=== PATIENT | male | born 1945 | race Caucasian/White ===

== ENCOUNTER 2020-04-25 12:57 | Inpatient (IN) | payer OTHER ==
--- NOTE | 2020-04-25 14:37 | PDOC ---
History of Present Illness - General Chief Complaint: Injury Stated Complaint: KNOT IN CHEST Time Seen by Provider: 04/25/20 13:45 - History of Present Illness Initial Comments: 04/25/20 14:32 74yo M with PMH NIDDM and a cardiac valve repair ~8 months ago who presents because his niece checked in on him for the first time in a few months and he complained of right sided chest and hip pain since a fall two months ago, and because she noticed that he looked much thinner and became short of breath after just 10 steps. Patient reports that he got out of bed a two months ago, became lightheaded, and fell on his right side. Denies LOC. Since then, he has had pain from his hip up to his right chest. He also has pain and a small bump over his sternotomy scar. Also reports diffuse abdominal pain, but no GI or symptoms. Reports 20lb weight loss over several months. PMH/PSH: as above Meds: januvia, metoprolol Allergies Allergy/AdvReac Type Severity Reaction Status Date / Time No Known Allergies Allergy Verified 01/10/15 16:02 Former smoker ROS GENERAL/CONSTITUTIONAL: No fever or chills. weakness. HEAD, EYES, EARS, NOSE AND THROAT: No change in vision. No ear pain or discharge. No sore throat. CARDIOVASCULAR: chest pain and shortness of breath RESPIRATORY: No cough, wheezing, or hemoptysis. GASTROINTESTINAL: No nausea, vomiting, diarrhea or constipation. GENITOURINARY: No dysuria, frequency, or change in urination. MUSCULOSKELETAL: right hip and chest pain, no back or neck pain SKIN: No rash NEUROLOGIC: No headache, vertigo, loss of consciousness, or change in strength/sensation. ENDOCRINE: No increased thirst. weight loss HEMATOLOGIC/LYMPHATIC: No anemia, easy bleeding, or history of blood clots. ALLERGIC/IMMUNOLOGIC: No hives or skin allergy. PE GENERAL: Awake, alert, and fully oriented, thin elderly male, in no acute distress HEAD: No signs of trauma, normocephalic, atraumatic EYES: PERRLA, EOMI, sclera anicteric, conjunctiva clear ENT: Auricles normal inspection, hearing grossly normal, nares patent, oropharynx clear without exudates. Moist mucosa NECK: Normal ROM, supple, no lymphadenopathy, JVD, or masses LUNGS: No distress, speaks full sentences, clear to auscultation bilaterally, shallow respirations HEART: Regular rate and rhythm, normal S1 and S2, no murmurs, rubs or gallops, peripheral pulses normal and equal bilaterally. ABDOMEN: Soft, diffusely tender. No guarding, no rebound. EXTREMITIES : digital clubbing. right > left chest wall tenderness. Tenderness over sternotomy with small area of swelling. Right hip tenderness. NEUROLOGICAL: Cranial nerves II through XII grossly intact. Normal speech, no focal sensorimotor deficits SKIN: Warm, Dry, normal turgor, no rashes or lesions noted Vital Signs Temp Pulse Resp BP Pulse Ox 98.3 F 98 H 16 135/78 97 04/25/20 13:06 04/25/20 13:06 04/25/20 13:06 04/25/20 13:06 04/25/20 13:06 MDM: 74yo M with PMH NIDDM and a cardiac valve repair ~8 months ago who presents with right chest pain, right pelvic pain, dyspnea on exertion, weight loss since a fall two months prior. Vitals reassuring. Exam notable for shallow respirations, tenderness over stenotomy, chest, right hip, and digital clubbing DDx includes rib/sternum/pelvic fracture, ICH, malignancy, CHF -EKG -CBC, CMP, cardiac enzymes, lactate, BMP -CT head and c-spine w/o contrast -CT C/A/P with contrast 04/25/20 14:39 04/25/20 17:32 EKG: NSR, rate 99, normal axis and intervals, LVH, non-specific ST-T changes Labs notable for calcium 14.7, BUN/Cr 1.3/26.9 (previous creatinine 0.9), alk phos 150, CK 536, BNP 436, lactate 4.2. Negative trop x1 Abnormal Lab Results 04/25/20 04/25/20 04/25/20 14:55 14:55 14:55 WBC 10.3 H Monocytes % (Manual) 3 L Myelocytes % (Man) 4 H Nucleated RBC % 1 H BUN 26.1 H Random Glucose 208 H Lactic Acid 4.2 H* Calcium 14.7 H* Total Bilirubin 1.1 H Alkaline Phosphatase 150 H Creatine Kinase 536 H CK-MB (CK-2) 7.4 H B-Natriuretic Peptide 436.3 H Will treat severe hypercalcemia with 1000ml NS bolus, calcitonin, and zolendronate. The fluids will also address the elevated lactate CT head: Impression: No CT evidence of acute intracranial pathology. A small curvilinear hypodense focus is noted within the left basal ganglia possibly representing a chronic infarct versus a nonspecific mildly dilated vessel. Correlation with non emergent contrast enhanced MRI or CT is suggested. Several small bilateral frontal subcortical white matter hypodense foci are seen which may represent chronic infarct versus chronic microvascular ischemic changes. Mild periventricular chronic microvascular ischemic changes are noted. There is mild deformity of the medial wall of the right orbit consistent with a fracture which is probably chronic. Correlate clinically. CT c-spine Addendum: Given findings consistent with multifocal osseous neoplastic disease described on the chest, abdomen and pelvis CT exams the previously noted subtle low-attenuation foci within the cervical spine are probably also on the basis of neoplastic disease. Impression: No fracture is identified. Multilevel degenerative disc changes are noted. Mild multilevel patchy osseous low- attenuation is seen which could be on the basis of osteoporosis. Neoplastic disease is less likely. Comparison with prior CT/MRI exams is suggested if available from a different facility. If prior studies are not available correlation with nonemergent MRI versus 2 month follow-up CT is suggested. CT Chest: Impression: In comparison to a 2013 CT exam interval development of multilevel thoracic vertebral body osteolytic lesions are noted suggestive of metastatic neoplastic disease. Minimal T5 and mild T6 pathologic vertebral body compression fractures are seen. There is mild bony retropulsion at the T6 level. Development of several multilevel bilateral rib osteolytic lesions is also noted. There are possible small subtle osteolytic lesions within the body of the sternum. Status post interval median sternotomy. Interval development of mild subcarinal mediastinal lymphadenopathy is noted. Increased bilateral upper and lower lung field pulmonary fibrosis is noted, left more than right. There is associated mildly increased left lower lobe volume loss. Note is again made of mild fusiform aneurysmal dilatation of the aortic arch and descending aorta CT A/P: Impression: An expansile 5 x 4 cm osteolytic lesion suggestive of metastatic neoplastic disease is noted involving the right iliac bone ventrally with extraosseous soft tissue component. Additional smaller nonexpansile osteolytic lesions are seen involving the lumbosacral spine and bilateral iliac bones. Mild pathologic L1 vertebral body compression fracture with minimal bony retropulsion. There are probable small osteolytic lesions within the femoral heads/necks bilaterally. Right pelvic lymphadenopathy is noted. Moderate prostate enlargement. Mild diffuse urinary bladder wall thickening probably secondary to chronic outlet obstruction. Correlate clinically. Mild fusiform aneurysmal dilatation of the suprarenal aorta (3.4 cm diameter). Admit for likely metastatic cancer, hypercalcemia, JEAN Repeat lactate 7pm Signed out to night team for the admission Past History - Medical History Allergies/Adverse Reactions: Allergies Allergy/AdvReac Type Severity Reaction Status Date / Time No Known Allergies Allergy Verified 01/10/15 16:02 Home Medications: Ambulatory Orders Janumet 50-1,000 mg Tablet 1 tab PO BID 03/14/16 Albuterol Sulfate Inhaler - [Ventolin Hfa Inhaler -] 1 - 2 inh PO PRN PRN 04/25/20 Meloxicam 7.5 mg PO DAILY 04/25/20 Metoprolol Succinate 50 mg PO DAILY 04/25/20 Oxycodone HCl/Acetaminophen [Percocet 10-325 mg Tablet] 1 each PO PRN PRN 04/25/20 Rosuvastatin Calcium [Crestor] 10 mg PO DAILY 04/25/20 Salmeterol/Fluticasone [Advair 100Mcg/50Mcg -] 250 mg PO BID 04/25/20 Tamsulosin HCl [Flomax] 0.4 mg PO DAILY 04/25/20 Tiotropium [place] [Spiriva Respimat] 4 gm IH DAILY 04/25/20 COPD: No Diabetes: Yes HTN: Yes - Surgical History Cardiac Surgery: Yes - Immunization History Immunization Up to Date: Yes - Psycho-Social/Smoking History Smoking History: Never smoked Have you smoked in the past 12 months: No Number of Cigarettes Smoked Daily: 5 Information on smoking cessation initiated: No - Substance Abuse Hx (Audit-C & DAST Scrn) How often the patient has a drink containing alcohol: Never Score: In Men: 4 or > Positive; In Women: 3 or > Positive: 0 Screen Result (Pos requires Nsg. Audit-10AR): Negative In the last yr the pt used illegal drug/Rx for NonMed reason: No Score: Yes response is considered Positive: 0 Screen Result (Positive result requires Nsg. DAST-10): Negative *Physical Exam - Vital Signs Last Vital Signs Temp Pulse Resp BP Pulse Ox 98.3 F 98 H 16 135/78 97 04/25/20 13:06 04/25/20 13:06 04/25/20 13:06 04/25/20 13:06 04/25/20 13:06 ED Treatment Course - LABORATORY CBC & Chemistry Diagram: 04/25/20 14:55 04/25/20 14:55 Discharge - Discharge Information Problems reviewed: Yes Clinical Impression/Diagnosis: JEAN (acute kidney injury), Hypercalcemia Metastatic cancer Qualifiers: Area of secondary neoplastic involvement: bone Qualified Code(s): C79.51 - Secondary malignant neoplasm of bone Condition: Stable - Follow up/Referral - Patient Discharge Instructions - Post Discharge Activity
[2020-04-25] MEDS ORDERED: ACETAMINOPHEN 1000 MG/100 ML VIAL (NON FORMULARY) IVPB ONE (15:06)
[2020-04-25 15:14] LABS: BASO % 0.4 % (0-2.0); EOS % 0.9 % (0-4.5); HEMATOCRIT 43.9 % (35.4-49); HEMOGLOBIN 15.1 GM/dL (11.7-16.9); LYMPH % 17.5 % (8-40); MCH 30.7 pg (25.7-33.7); MCHC 34.4 g/dl (32.0-35.9); MEAN CELL VOLUME 89.4 fl (80-96); MEAN PLT VOLUME 8.4 fl (7.5-11.1); MONO % 5.4 % (3.8-10.2); NEUT % 75.8 % (42.8-82.8); PLATELET COUNT 140 K/MM3 (134-434); RBC 4.91 M/mm3 (4.00-5.60); WHITE BLOOD COUNT 10.3 K/mm3 (4.0-10.0)
--- NOTE | 2020-04-25 15:23 | PDOC ---
Documentation entered by Tristin Nicholas SCRIBE, acting as scribe for Rodo Almendarez MD. Rodo Almendarez MD: This documentation has been prepared by the Cristopher jones Alexis, SCRIBE, under my direction and personally reviewed by me in its entirety. I confirm that the documentation accurately reflects all work, treatment, procedures, and medical decision making performed by me. Attending Attestation - Resident Resident Name: Adán Snell - ED Attending Attestation I have performed the following: I have examined & evaluated the patient, The case was reviewed & discussed with the resident, I agree w/resident's findings & plan, Exceptions are as noted - HPI HPI: 04/25/20 14:58 The patient is a 74 year old male with a significant past medical history of NIDDM and cardiac repair (eight months ago) who presents to the emergency department for evaluation of right sided chest pain and right hip pain that began two months ago s/p fall. The patient reports falling on his right side two months ago due to lightheadedness. After this fall, he has had pain from his right chest to his right hip and abdominal pain. The patients niece at bedside reports the patient has lost significant weight over the past 2 months. Pt denies any acute complaints today but notes that he has been getting progressively more SOB with minimal exertion. Denies leg swelling. Denies LOC. The patient denies back pain, cough, fever, chills, nausea, vomiting, and/or any GI symptoms. Denies any symptoms. Denies any other symptoms. Allergies: NKA Social Hx: The patient reports he smokes cigarettes daily for the past 40 years and social drinking. Surgical Hx: right toe surgery, cardiac valve repair PCP: Dr. Wray - Physicial Exam PE: 04/25/20 13:48 see resident exam - Medical Decision Making 04/25/20 15:24 74 M with fall and weakness. - Labs - CT head/c-spine 04/25/20 18:55 Labs with hyper Ca Will give fluids, calcitonin, bisphosphonates Discharge - Discharge Information Problems reviewed: Yes Clinical Impression/Diagnosis: JEAN (acute kidney injury), Hypercalcemia Metastatic cancer Qualifiers: Area of secondary neoplastic involvement: bone Qualified Code(s): C79.51 - Secondary malignant neoplasm of bone Condition: Stable Disposition: VNS/HOME HEALTH CARE - Follow up/Referral - Patient Discharge Instructions - Post Discharge Activity
[2020-04-25] MEDS ORDERED: ACETAMINOPHEN INJECTION 100 ML IVPB ONE (15:35)
[2020-04-25 15:43] LABS: ALBUMIN 3.8 g/dl (3.4-5.0); ALK PHOS 150 U/L (45-117); ANION GAP 11 MMOL/L (8-16); BILIRUBIN,TOTAL 1.1 mg/dL (0.2-1); BLOOD UREA NITROGEN 26.1 mg/dL (7-18); CHLORIDE 98 mmol/L (98-107); CO2 29 mmol/L (21-32); CREATININE 1.3 mg/dL (0.55-1.3); GLUCOSE,RANDOM 208 mg/dL (74-106); N-TERMINAL BNP 436.3 pg/ml (5-125); POTASSIUM 3.5 mmol/L (3.5-5.1); SGOT/AST 36 U/L (15-37); SGPT/ALT 19 U/L (13-61); SODIUM 139 mmol/L (136-145)
[2020-04-25 15:56] LABS: CALCIUM 14.7 mg/dL (8.5-10.1)
[2020-04-25] MEDS ORDERED: SODIUM CHLORIDE 0.9% 500 ML INFUS.BAG IV ONE (16:10)
[2020-04-25] MEDS ORDERED: ZOLEDRONIC ACID 4 MG in SODIUM CHLORIDE 100 ML IVPB ONE (16:13)
[2020-04-25] MEDS ORDERED: CALCITONIN - SALMON SYNTHETIC 400 UNIT/2 ML VIAL SQ ONE ×3 (16:15→17:00)
--- NOTE | 2020-04-25 19:12 | PDOC ---
*Physical Exam - Vital Signs Last Vital Signs Temp Pulse Resp BP Pulse Ox 98.3 F 98 H 16 135/78 97 04/25/20 13:06 04/25/20 13:06 04/25/20 13:06 04/25/20 13:06 04/25/20 13:06 ED Treatment Course - LABORATORY CBC & Chemistry Diagram: 04/26/20 04:45 04/26/20 04:45 - ADDITIONAL ORDERS Additional order review: Laboratory Results 04/25/20 04/25/20 14:55 14:55 Sodium 139 Potassium 3.5 Chloride 98 Carbon Dioxide 29 Anion Gap 11 BUN 26.1 H Creatinine 1.3 Est GFR (CKD-EPI)AfAm 62.30 Est GFR (CKD-EPI)NonAf 53.75 Random Glucose 208 H Lactic Acid 4.2 H* Calcium 14.7 H* Total Bilirubin 1.1 H AST 36 ALT 19 Alkaline Phosphatase 150 H Creatine Kinase 536 H Creatine Kinase Index 1.3 CK-MB (CK-2) 7.4 H Troponin I < 0.02 B-Natriuretic Peptide 436.3 H Total Protein 8.0 Albumin 3.8 04/25/20 14:55 RBC 4.91 MCV 89.4 MCHC 34.4 RDW 14.0 MPV 8.4 D Neutrophils % 75.8 D Lymphocytes % 17.5 D Monocytes % 5.4 Eosinophils % 0.9 Basophils % 0.4 - Medications Given in the ED: ED Medications Discontinued Medications Generic Name Dose Route Start Last Admin Trade Name Freq PRN Reason Stop Dose Admin Acetaminophen 1,000 mg 04/25/20 15:06 04/25/20 15:37 Ofirmev Injection - IVPB 04/25/20 15:07 1,000 mg ONCE ONE Administration Calcitonin 12 unit 04/25/20 16:30 04/25/20 17:06 Miacalcin Injection - SQ 04/25/20 16:31 Not Given ONCE ONE Calcitonin 200 unit 04/25/20 17:00 04/25/20 17:29 Miacalcin Injection - SQ 04/25/20 17:01 200 unit ONCE ONE Administration Zoledronic Acid 4 mg/ Sodium 105 mls @ 100 mls/hr 04/25/20 16:13 04/25/20 17:28 Chloride IVPB 04/25/20 17:15 100 mls/hr ONCE ONE Administration Sodium Chloride 1,000 ml 04/25/20 16:10 04/25/20 16:20 Normal Saline - IV 04/25/20 16:11 1,000 ml ONCE ONE Administration Medical Decision Making - Medical Decision Making 04/25/20 19:11 sign out was given by Dr. Snell 04/26/20 03:20 Patient was informed of the CT chest scan result. He agreed to stay. He is admitted to the floor. EKG showed vent rate 99, normal sinus rhtym, left ventricular hypertrophy. No previous EKG to compare to. 04/26/20 03:22 Discharge - Discharge Information Problems reviewed: Yes Clinical Impression/Diagnosis: JEAN (acute kidney injury), Hypercalcemia Metastatic cancer Qualifiers: Area of secondary neoplastic involvement: bone Qualified Code(s): C79.51 - Secondary malignant neoplasm of bone Condition: Stable - Admission Yes - Follow up/Referral - Patient Discharge Instructions - Post Discharge Activity
[2020-04-25] MEDS ORDERED: SODIUM CHLORIDE 1,000 ML IV SCH (21:00)
[2020-04-25] MEDS: FUROSEMIDE 40 MG/4 ML INJECTABLE VIAL IVPUSH SCH (21:35)
--- NOTE | 2020-04-25 21:37 | HP ---
CHIEF COMPLAINT: pain all over the body PCP: Dr. Wray HISTORY OF PRESENT ILLNESS: 74 YO man with Mhx of HTN, DM, HLD, ILD, BPH and Aortic Aneurysm s/p repair 1 year ago, presented to ED after his niece found him on floor and unable to get up. Pt reported that he started having pain and weakness all over his body over the last month, associated with decreased appetite and wt loss (reported 20lbs loss). His symptoms became worse over the last 5 days, and last night he was feeling so weak, he sat on floor and couldn't get up till his niece came to check on him and found him on floor. He denies LOC, dizziness, change in urine or bowel habits. No cough or fever reported ER course was notable for: (1) CT head, abdomen and chest (2) Hypercalcemia of 14.7 , recieved calcitonin, zolendronic acid, IVF bolus (3) Recent Travel: denies PAST MEDICAL HISTORY: HTN, DM, HLD, ILD, BPH PAST SURGICAL HISTORY: aortic valve repair (around 1 year ago) Social History: Smokin Pack Year, quit last year Alcohol: 10 Beers/day, quit 15 years ago Drugs: denies Allergies No Known Allergies Allergy (Verified 01/10/15 16:02) HOME MEDICATIONS: Home Medications Medication Instructions Recorded Janumet 50-1,000 mg Tablet 1 tab PO BID 03/14/16 Albuterol Sulfate Inhaler - 1 - 2 inh PO PRN PRN 04/25/20 [Ventolin Hfa Inhaler -] Meloxicam 7.5 mg PO DAILY 04/25/20 Metoprolol Succinate 50 mg PO DAILY 04/25/20 Oxycodone HCl/Acetaminophen 1 each PO PRN PRN 04/25/20 [Percocet 10-325 mg Tablet] Rosuvastatin Calcium [Crestor] 10 mg PO DAILY 04/25/20 Salmeterol/Fluticasone [Advair 250 mg PO BID 04/25/20 100Mcg/50Mcg -] Tamsulosin HCl [Flomax] 0.4 mg PO DAILY 04/25/20 Tiotropium [place] [Spiriva 4 gm IH DAILY 04/25/20 Respimat] REVIEW OF SYSTEMS CONSTITUTIONAL: generalized weakness, loss of appetite, weight change HEENT: System reviewed, all with in normal limits CARDIOVASCULAR: System reviewed, all with in normal limits RESPIRATORY: System reviewed, all with in normal limits GASTROINTESTINAL:abdominal pain GENITOURINARY: System reviewed, all with in normal limits MUSCULOSKELETAL: see HPI SKIN: System reviewed, all with in normal limits HEMATOLOGIC/IMMUNOLOGIC: System reviewed, all with in normal limits ENDOCRINE: System reviewed, all with in normal limits NEUROLOGIC: System reviewed, all with in normal limits PSYCHIATRIC: System reviewed, all with in normal limits PHYSICAL EXAMINATION Vital Signs - 24 hr 04/25/20 13:06 Temperature 98.3 F Pulse Rate 98 H Respiratory 16 Rate Blood Pressure 135/78 O2 Sat by Pulse 97 Oximetry (%) GENERAL: Awake, alert, and fully oriented, in distress due to pain HEAD: Normal with no signs of trauma. EYES: Pupils equal, round and reactive to light, extraocular movements intact, sclera anicteric, conjunctiva clear. No lid lag. EARS, NOSE, THROAT: Ears normal, nares patent, oropharynx clear without exudates. Moist mucous membranes. NECK: Normal range of motion, supple without lymphadenopathy, JVD, or masses. LUNGS: Breath sounds equal, inspiratory crackles- diffuse. HEART: Regular rate and rhythm, normal S1 and S2 with sytolic 4/6 murmur, rub or gallop. ABDOMEN: Soft, mildly tender, not distended, normoactive bowel sounds, no guar ding, no rebound, no masses. No hepatomegaly or splenomegaly. MUSCULOSKELETAL: limited by pain of back, UE & LE: full ROM no joint swelling or tenderness. UPPER EXTREMITIES: 2+ pulses, warm, well-perfused. No cyanosis. No clubbing. No peripheral edema. finger clubbing noted LOWER EXTREMITIES: 2+ pulses, warm, well-perfused. No calf tenderness. No peripheral edema. NEUROLOGICAL: Cranial nerves II-XII intact. Normal speech. Normal gait. PSYCHIATRIC: Cooperative. Good eye contact. Appropriate mood and affect. SKIN: Warm, dry, normal turgor, no rashes or lesions noted, normal capillary refill. Laboratory Results - last 24 hr 04/25/20 04/25/20 04/25/20 14:55 14:55 14:55 WBC 10.3 H RBC 4.91 Hgb 15.1 Hct 43.9 MCV 89.4 MCH 30.7 MCHC 34.4 RDW 14.0 Plt Count 140 D MPV 8.4 D Absolute Neuts (auto) 7.8 Total Counted 100 Neutrophils % 75.8 D Neutrophils % (Manual) 75.0 Lymphocytes % 17.5 D Lymphocytes % (Manual) 18.0 Monocytes % 5.4 Monocytes % (Manual) 3 L Eosinophils % 0.9 Basophils % 0.4 Myelocytes % (Man) 4 H Nucleated RBC % 1 H Sodium 139 Potassium 3.5 Chloride 98 Carbon Dioxide 29 Anion Gap 11 BUN 26.1 H Creatinine 1.3 Est GFR (CKD-EPI)AfAm 62.30 Est GFR (CKD-EPI)NonAf 53.75 Random Glucose 208 H Lactic Acid 4.2 H* Calcium 14.7 H* Total Bilirubin 1.1 H AST 36 ALT 19 Alkaline Phosphatase 150 H Creatine Kinase 536 H Creatine Kinase Index 1.3 CK-MB (CK-2) 7.4 H Troponin I < 0.02 B-Natriuretic Peptide 436.3 H Total Protein 8.0 Albumin 3.8 04/25/20 19:05 WBC RBC Hgb Hct MCV MCH MCHC RDW Plt Count MPV Absolute Neuts (auto) Total Counted Neutrophils % Neutrophils % (Manual) Lymphocytes % Lymphocytes % (Manual) Monocytes % Monocytes % (Manual) Eosinophils % Basophils % Myelocytes % (Man) Nucleated RBC % Sodium Potassium Chloride Carbon Dioxide Anion Gap BUN Creatinine Est GFR (CKD-EPI)AfAm Est GFR (CKD-EPI)NonAf Random Glucose Lactic Acid 1.5 Calcium Total Bilirubin AST ALT Alkaline Phosphatase Creatine Kinase Creatine Kinase Index CK-MB (CK-2) Troponin I B-Natriuretic Peptide Total Protein Albumin ASSESSMENT/PLAN: 74 YO man with Mhx of HTN, DM, HLD, BPH and Aortic Aneurysm s/p repair 1 year ago, presented to ED with back pain, fatigue and weakness # Acute Back pain, weakness and compression fractures 2/2 Hypercalcemia, occult malignancy (primary source unknown), FTT Ca 14.7, recieved calcitonin, Zoledronic acid, IV bolus c/w IV hydration, will repeat CMP, EKG furosemide once. CT revealed: Multilevel vertebral bodies/ribs osteolytic lesions highly suggestive of mets. T56 compression fracture. With mild bony retropulsion at T6. Mediastinal LAP. Pulmonary fibrosis. Aortic aneurysm 3.7cm high protien gap, JEAN. could be MM also can't rule out lung CA, pt has pulmonary fibrosis on imaging, mediastinal LAP, digital clubbing SPEP and urine pep ordered TSH, PTH, Vit D levels ordered EKG reviewed Pain management as indicated no reported saddle anesthesia, retention or constipation, but would watch for symptoms no focal neurological deficit in LE Ortho consult Nephrology consult HemOnc Consult #JEAN IV hydration urine PEP avoid nephrotoxin trend CMP Interstitial Lung Disease/Pulmonary fibrosis HTN DM BPH HLD Aortic Aneurysm DVT prophylaxis Family Medical History Family History: Unremarkable (pt unsure of his family history) Visit type - Medication Review Med list reviewed for High Risk Meds patients 65 and older: Yes - Emergency Visit Emergency Visit: Yes ED Registration Date: 04/25/20 Care time: The patient presented to the Emergency Department on the above date and was hospitalized for further evaluation of their emergent condition. - New Patient This patient is new to me today: Yes Date on this admission: 04/26/20 - Critical Care Critical Care patient: No
[2020-04-25] MEDS ORDERED: ALBUTEROL SO4 HFA INHALER IH PRN (21:40)
[2020-04-25] MEDS: INSULIN SLIDING SCALE (NOVOLOG) 1 VIAL SQ SCH (23:22)
[2020-04-25 23:24] LABS: URINE APPEARANCE CLEAR; URINE BILIRUBIN NEGATIVE (NEGATIVE); URINE COLOR YELLOW; URINE GLUCOSE (UA) NEGATIVE (NEGATIVE); URINE KETONE NEGATIVE (NEGATIVE); URINE LEUK ESTERASE NEGATIVE (NEGATIVE); URINE NITRITE NEGATIVE (NEGATIVE); URINE PROTEIN NEGATIVE (NEGATIVE); URINE UROBILINOGEN 0.2 mg/dL (0.2-1.0)
[2020-04-26] MEDS: FLUTICASONE/SALMETEROL 100 MCG/50 MCG DISKUS IH SCH ×3 (02:43→21:52)
[2020-04-26] MEDS: ROSUVASTATIN CA 10 MG TABLET (FP) PO SCH ×2 (02:43→21:52)
[2020-04-26 04:58] LABS: HEMATOCRIT 39.5 % (35.4-49); HEMOGLOBIN 13.6 GM/dL (11.7-16.9); MCH 30.6 pg (25.7-33.7); MCHC 34.6 g/dl (32.0-35.9); MEAN CELL VOLUME 88.5 fl (80-96); MEAN PLT VOLUME 8.5 fl (7.5-11.1); PLATELET COUNT 122 K/MM3 (134-434); RBC 4.46 M/mm3 (4.00-5.60); RDW 14.3 % (11.9-15.9); WHITE BLOOD COUNT 9.3 K/mm3 (4.0-10.0)
[2020-04-26 05:31] LABS: ALBUMIN 3.2 g/dl (3.4-5.0); BLOOD UREA NITROGEN 20.7 mg/dL (7-18); CALCIUM 10.8 mg/dL (8.5-10.1); MAGNESIUM 1.1 mg/dL (1.8-2.4); PHOSPHOROUS 2.6 mg/dL (2.5-4.9); POTASSIUM 3.3 mmol/L (3.5-5.1); TOT PROT 6.7 g/dl (6.4-8.2)
[2020-04-26 05:50] LABS: INR 1.24 (0.83-1.09); PROTHROMBIN TIME (PATIENT) 14.7 SEC (9.7-13.0)
[2020-04-26] MEDS ORDERED: POTASSIUM CHLORIDE TABS 20 MEQ TABLET.ER (FP) PO ONE (06:10)
[2020-04-26] MEDS: INSULIN SLIDING SCALE (NOVOLOG) 1 VIAL SQ SCH ×4 (06:32→21:50)
[2020-04-26] MEDS: MORPHINE SULFATE 2 MG/ML VIAL IVPUSH PRN ×3 (06:33→21:55)
[2020-04-26 07:07] LABS: BILIRUBIN,TOTAL 0.9 mg/dL (0.2-1)
--- NOTE | 2020-04-26 08:24 | PN ---
Progress Note, Physician History of Present Illness: 4 YO man with Mhx of HTN, DM, HLD, ILD, BPH and Aortic Aneurysm s/p repair 1 year ago, presented to ED after his niece found him on floor and unable to get up. Pt reported that he started having pain and weakness all over his body over the last month, associated with decreased appetite and wt loss (reported 20lbs loss). His symptoms became worse over the last 5 days, and last night he was feeling so weak, he sat on floor and couldn't get up till his niece came to check on him and found him on floor. He denies LOC, dizziness, change in urine or bowel habits. No cough or fever reported - Current Medication List Current Medications: Active Medications Acetaminophen (Tylenol -) 650 mg PO Q4H PRN PRN Reason: PAIN LEVEL 1-5 Albuterol Sulfate (Ventolin Hfa Inhaler -) 2 puff IH Q4H PRN PRN Reason: SHORT OF BREATH/WHEEZING Docusate Sodium (Colace -) 100 mg PO BID PRN PRN Reason: CONSTIPATION Furosemide (Lasix Injection -) 20 mg IVPUSH DAILY [facility] Last Admin: 04/25/20 21:35 Dose: 20 mg Documented by: Heparin Sodium (Porcine) (Heparin -) 5,000 unit SQ TID [facility] Sodium Chloride (Normal Saline -) 1,000 mls @ 100 mls/hr IV ASDIR [facility] Last Admin: 04/25/20 21:34 Dose: 100 mls/hr Documented by: Insulin Aspart (Novolog Vial Sliding Scale -) 1 vial SQ ACHS [facility]; Protocol Last Admin: 04/26/20 06:32 Dose: Not Given Documented by: Morphine Sulfate (Morphine Sulfate) 2 mg IVPUSH Q4H PRN PRN Reason: PAIN LEVEL 7 - 10 Last Admin: 04/26/20 06:33 Dose: 2 mg Documented by: Rosuvastatin Calcium (Crestor -) 10 mg PO HS [facility] Last Admin: 04/26/20 02:43 Dose: Not Given Documented by: Fluticasone/Salmeterol (Advair 100mcg/50mcg -) 1 puff IH BID [facility] Last Admin: 04/26/20 02:43 Dose: Not Given Documented by: Tamsulosin HCl (Flomax -) 0.4 mg PO DAILY@0830 [facility] Tiotropium Comfort (Spiriva Respimat) 2 puff IH DAILY [facility] - Objective Vital Signs: Vital Signs Temperature 97.8 F 04/26/20 05:00 Pulse Rate 88 04/26/20 05:00 Respiratory Rate 18 04/26/20 05:00 Blood Pressure 110/66 04/26/20 05:00 O2 Sat by Pulse Oximetry (%) 93 L 04/26/20 05:00 Cardiovascular: Yes: S1, S2 Respiratory: Yes: Regular, CTA Bilaterally Gastrointestinal: Yes: Normal Bowel Sounds, Soft. No: Tenderness Musculoskeletal: Yes: Back Pain, Muscle Weakness Edema: No Neurological: Yes: Alert, Oriented, Unsteady Gait, Weakness Labs: CBC, BMP 04/26/20 04:45 04/26/20 04:45 INR, PTT INR 1.24 (0.83-1.09) H 04/26/20 04:45 Problem List - Problems (1) Compression fracture Assessment/Plan: # Acute Back pain, weakness and compression fractures 2/2 Hypercalcemia, occult malignancy (primary source unknown), FTT CT revealed: Multilevel vertebral bodies/ribs osteolytic lesions highly suggestive of mets. T56 compression fracture. With mild bony retropulsion at T6. Mediastinal LAP. Pulmonary fibrosis. Aortic aneurysm 3.7cm Code(s): [id number] - (2) Hypercalcemia Assessment/Plan: Ca 14.7, recieved calcitonin, Zoledronic acid, IV bolus c/w IV hydration, will repeat CMP, EKG furosemide once. Code(s): E83.52 - HYPERCALCEMIA (3) Aortic aneurysm Code(s): I71.9 - AORTIC ANEURYSM OF UNSPECIFIED SITE, WITHOUT RUPTURE (4) JEAN (acute kidney injury) Assessment/Plan: SPEP and urine pep ordered TSH, PTH, Vit D levels ordered IV hydration avoid nephrotoxin trend CMP Code(s): N17.9 - ACUTE KIDNEY FAILURE, UNSPECIFIED (5) Metastatic cancer Assessment/Plan: HemOnc Consult Code(s): C79.9 - SECONDARY MALIGNANT NEOPLASM OF UNSPECIFIED SITE Qualifiers: Area of secondary neoplastic involvement: bone Qualified Code(s): C79.51 - Secondary malignant neoplasm of bone
[2020-04-26] MEDS ORDERED: CALCITONIN - SALMON SYNTHETIC 400 UNIT/2 ML VIAL SQ ONE (10:00)
--- NOTE | 2020-04-26 10:00 | CONSULT ---
Consultation: REQUESTING PROVIDER: Dr. Chau Wray CONSULT REQUEST: We have been asked to medically evaluate this patient for JEAN. HISTORY OF PRESENT ILLNESS: Pt. is a 74 y.o. Croatian-speaking M w/ PMHx. of HTN, DM2, HLD, BPH, ILD and hx. of Aortic aneurysm repair 1 year ago, presents from home after being found down on the ground by niece. Pt. states that over the last 2 months he has gotten progressively weaker and has diffuse bone pain in his chest and back that is worse with movement. Pt. states that he also has decreased appettite over that time and even though he would cook for himself he has not been eating or drinking as much. Pt. drinks coffee for energy. Pt. denies any blood or melena in his stool. Pt. denies anch probelms currently with his bowel habits but reports he was on Linzess in the past for constipation. Pt. states he had a colonoscopy within the last year but was not told of his results. Pt. endorses at least 20 lbs. unintentional weight loss over the last 2 months.Pt. states he sees many doctors and takes many medications but does not remember them and directed me to speak with his niece when she comes in later today. Pt.denies any headache, changes in vision, nausea, vomiting, diarrhea, constipation, numbness, shortness of breath that is worse than usual or tingling in his extremities that is worse than usual. Pt. denies any family history of malignancy or renal disease. Pt. denies takign any medication other than what was prescribed for pain. Pt. notably is on Meloxicam. On hospital admission Pt. noted to have JEAN, hypercalcemia to 14.7 and multiple osteolytic lesions to spine, and pelvis. Pt. received calcitonin, Zolendronic Acid and IVF. Cortex #[id number] REVIEW OF SYSTEMS: As above PHYSICAL EXAMINATION Vital Signs - 24 hr 04/25/20 04/25/20 04/26/20 13:06 23:09 02:00 Temperature 98.3 F 98.2 F 98.1 F Pulse Rate 98 H 89 Pulse Rate [ 101 H Right Radial] Respiratory 16 16 Rate Blood Pressure 135/78 129/69 Blood Pressure 133/70 [Left Arm] O2 Sat by Pulse 97 93 L 95 Oximetry (%) 04/26/20 05:00 Temperature 97.8 F Pulse Rate 88 Pulse Rate [ Right Radial] Respiratory 18 Rate Blood Pressure 110/66 Blood Pressure [Left Arm] O2 Sat by Pulse 93 L Oximetry (%) GENERAL: Awake, alert, and fully oriented, in acute distress 2/2 to pain with movement. HEAD: Normal with no signs of gross trauma. Temporal wasting EYES: Sclera anicteric, conjunctiva clear. EARS, NOSE, THROAT: Dry mucous membranes. NECK: Normal range of motion, supple without lymphadenopathy, JVD, or masses. LUNGS: Diffuse crackles anteriorly and in axilla. Pt. too weak and has toom uch pain to sit up or roll to side. No accessory muscle use. HEART: Regular rate and rhythm, normal S1 and S2 without murmur. Chest wall tender to palpation. ABDOMEN: Soft, nontender, not distended, normoactive bowel sounds, no guarding, no rebound, no masses. UPPER EXTREMITIES: 2+ radial pulse, warm, well-perfused. No cyanosis. Digital clubbing. No peripheral edema. LOWER EXTREMITIES: 2+ dorsal pedal pulses, warm, well-perfused. No calf tenderness. No peripheral edema. NEUROLOGICAL: Moves all extremities, No focal deficits aprpeciated. Gait not assessed PSYCHIATRIC: Cooperative. Good eye contact. Appropriate mood and affect. SKIN: Warm, dry Laboratory Results - last 24 hr 04/25/20 04/25/20 04/25/20 14:55 14:55 14:55 WBC 10.3 H RBC 4.91 Hgb 15.1 Hct 43.9 MCV 89.4 MCH 30.7 MCHC 34.4 RDW 14.0 Plt Count 140 D MPV 8.4 D Absolute Neuts (auto) 7.8 Total Counted 100 Neutrophils % 75.8 D Neutrophils % (Manual) 75.0 Lymphocytes % 17.5 D Lymphocytes % (Manual) 18.0 Monocytes % 5.4 Monocytes % (Manual) 3 L Eosinophils % 0.9 Basophils % 0.4 Myelocytes % (Man) 4 H Nucleated RBC % 1 H PT with INR INR Sodium 139 Potassium 3.5 Chloride 98 Carbon Dioxide 29 Anion Gap 11 BUN 26.1 H Creatinine 1.3 Est GFR (CKD-EPI)AfAm 62.30 Est GFR (CKD-EPI)NonAf 53.75 POC Glucometer Random Glucose 208 H Lactic Acid 4.2 H* Calcium 14.7 H* Phosphorus Magnesium Total Bilirubin 1.1 H AST 36 ALT 19 Alkaline Phosphatase 150 H Creatine Kinase 536 H Creatine Kinase Index 1.3 CK-MB (CK-2) 7.4 H Troponin I < 0.02 B-Natriuretic Peptide 436.3 H Total Protein 8.0 Albumin 3.8 TSH Urine Color Urine Appearance Urine pH Ur Specific [place] Urine Protein Urine Glucose (UA) Urine Ketones Urine Blood Urine Nitrite Urine Bilirubin Urine Urobilinogen Ur Leukocyte Esterase 04/25/20 04/25/20 04/25/20 19:05 23:02 23:15 WBC RBC Hgb Hct MCV MCH MCHC RDW Plt Count MPV Absolute Neuts (auto) Total Counted Neutrophils % Neutrophils % (Manual) Lymphocytes % Lymphocytes % (Manual) Monocytes % Monocytes % (Manual) Eosinophils % Basophils % Myelocytes % (Man) Nucleated RBC % PT with INR INR Sodium Potassium Chloride Carbon Dioxide Anion Gap BUN Creatinine Est GFR (CKD-EPI)AfAm Est GFR (CKD-EPI)NonAf POC Glucometer 183 Random Glucose Lactic Acid 1.5 Calcium Phosphorus Magnesium Total Bilirubin AST ALT Alkaline Phosphatase Creatine Kinase Creatine Kinase Index CK-MB (CK-2) Troponin I B-Natriuretic Peptide Total Protein Albumin TSH Urine Color Yellow Urine Appearance Clear Urine pH 6.0 Ur Specific [place] 1.012 Urine Protein Negative Urine Glucose (UA) Negative Urine Ketones Negative Urine Blood Negative Urine Nitrite Negative Urine Bilirubin Negative Urine Urobilinogen 0.2 Ur Leukocyte Esterase Negative 04/26/20 04/26/20 04/26/20 04:45 04:45 04:45 WBC 9.3 RBC 4.46 Hgb 13.6 Hct 39.5 MCV 88.5 MCH 30.6 MCHC 34.6 RDW 14.3 Plt Count 122 L MPV 8.5 Absolute Neuts (auto) Total Counted Neutrophils % Neutrophils % (Manual) Lymphocytes % Lymphocytes % (Manual) Monocytes % Monocytes % (Manual) Eosinophils % Basophils % Myelocytes % (Man) Nucleated RBC % PT with INR 14.70 H INR 1.24 H Sodium 139 Potassium 3.3 L Chloride 104 Carbon Dioxide 28 Anion Gap 7 L BUN 20.7 H Creatinine 1.0 Est GFR (CKD-EPI)AfAm 85.55 Est GFR (CKD-EPI)NonAf 73.82 POC Glucometer Random Glucose 128 H Lactic Acid Calcium 10.8 H Phosphorus 2.6 Magnesium 1.1 L Total Bilirubin 0.9 AST 33 ALT 17 Alkaline Phosphatase 129 H Creatine Kinase Creatine Kinase Index CK-MB (CK-2) Troponin I B-Natriuretic Peptide Total Protein 6.7 Albumin 3.2 L TSH 1.98 Urine Color Urine Appearance Urine pH Ur Specific [place] Urine Protein Urine Glucose (UA) Urine Ketones Urine Blood Urine Nitrite Urine Bilirubin Urine Urobilinogen Ur Leukocyte Esterase 04/26/20 06:21 WBC RBC Hgb Hct MCV MCH MCHC RDW Plt Count MPV Absolute Neuts (auto) Total Counted Neutrophils % Neutrophils % (Manual) Lymphocytes % Lymphocytes % (Manual) Monocytes % Monocytes % (Manual) Eosinophils % Basophils % Myelocytes % (Man) Nucleated RBC % PT with INR INR Sodium Potassium Chloride Carbon Dioxide Anion Gap BUN Creatinine Est GFR (CKD-EPI)AfAm Est GFR (CKD-EPI)NonAf POC Glucometer 125 Random Glucose Lactic Acid Calcium Phosphorus Magnesium Total Bilirubin AST ALT Alkaline Phosphatase Creatine Kinase Creatine Kinase Index CK-MB (CK-2) Troponin I B-Natriuretic Peptide Total Protein Albumin TSH Urine Color Urine Appearance Urine pH Ur Specific [place] Urine Protein Urine Glucose (UA) Urine Ketones Urine Blood Urine Nitrite Urine Bilirubin Urine Urobilinogen Ur Leukocyte Esterase Active Medications Generic Name Dose Route Start Last Admin Trade Name Freq PRN Reason Stop Dose Admin Acetaminophen 650 mg 04/25/20 20:56 Tylenol - PO Q4H PRN PAIN LEVEL 1-5 Albuterol Sulfate 2 puff 04/25/20 21:40 Ventolin Hfa Inhaler - IH Q4H PRN SHORT OF BREATH/WHEEZING Docusate Sodium 100 mg 04/25/20 21:01 Colace - PO BID PRN CONSTIPATION Furosemide 20 mg 04/25/20 21:15 04/25/20 21:35 Lasix Injection - IVPUSH 20 mg DAILY [facility] Administration Heparin Sodium (Porcine) 5,000 unit 04/26/20 22:00 Heparin - SQ TID [facility] Potassium Chloride/Sodium Chloride 20 meq in 1,000 mls @ 83 mls/hr 04/26/20 08:30 1/2ns+20meq Kcl IV ASDIR [facility] Insulin Aspart 1 vial 04/25/20 22:00 04/26/20 06:32 Novolog Vial Sliding Scale - SQ Not Given ACHS [facility] Protocol Morphine Sulfate 2 mg 04/25/20 20:56 04/26/20 06:33 Morphine Sulfate IVPUSH 2 mg Q4H PRN Administration PAIN LEVEL 7 - 10 Rosuvastatin Calcium 10 mg 04/25/20 22:00 04/26/20 02:43 Crestor - PO Not Given HS [facility] Fluticasone/Salmeterol 1 puff 04/25/20 22:00 04/26/20 02:43 Advair 100mcg/50mcg - IH Not Given BID [facility] Tamsulosin HCl 0.4 mg 04/26/20 08:30 Flomax - PO DAILY@0830 [facility] Tiotropium Daisy 2 puff 04/26/20 10:00 Spiriva Respimat IH DAILY [facility] ASSESSMENT/PLAN: Pt. is a 74 y.o. Croatian-speaking M w/ PMHx. of HTN, DM2, HLD, BPH, ILD and Hx. of Aortic aneurysm repair 1 year ago, presents from home after being found down on the ground by niece. Pt. states that over the last 2 months he has gotten progressively weaker and has diffuse bone pain in his chest and back that is worse with movement. #JEAN #HTN #HLD #BPH #ILD #DM2 #Hx. of Aortic Aneurysm #Osteolytic lesions in thoracic spine and in pelvis #Suspected Malignancy #Failure to thrive #Lactic Acidosis #Elevated CK s/p Calcitonin and Zometa c/w IVF enourage PO intake Heme/Onc consult appreciated f/u outpatient records for PCP especially colonoscopy report Dietary consult for malnutrition suggested JEAN and elevated lactate is resolving with IVF f/u LUISANA Mspike, SPEP, UPEP to r/o MM although Pt. dies not have anemia has hypercalcemia, had renal involvement with JEAN and has lytic lesions f/u PTH and Vit. D Dispo: We will continue to follow the patient. Thank you for this consultative opportunity. Visit type - Medication Review Med list reviewed for High Risk Meds patients 65 and older: Yes - Emergency Visit Emergency Visit: Yes ED Registration Date: 04/25/20 Care time: The patient presented to the Emergency Department on the above date and was hospitalized for further evaluation of their emergent condition. - New Patient This patient is new to me today: Yes Date on this admission: 04/26/20 - Critical Care Critical Care patient: No ATTENDING PHYSICIAN STATEMENT I saw and evaluated the patient. I reviewed the resident's note and discussed the case with the resident. I agree with the resident's findings and plan as documented. SUBJECTIVE: OBJECTIVE: ASSESSMENT AND PLAN:
[2020-04-26] MEDS: FUROSEMIDE 40 MG/4 ML INJECTABLE VIAL IVPUSH SCH (10:08)
[2020-04-26] MEDS: TAMSULOSIN HCL 0.4 MG CAP PO SCH (10:08)
[2020-04-26] MEDS: DOCUSATE SODIUM 100 MG CAPSULE (FP) PO PRN (10:10)
[2020-04-26] MEDS ORDERED: PT OWN MED DRAWER 7, Y5N ONE (10:21)
[2020-04-26] MEDS: SODIUM CHLORIDE 0.45%/POT 20 MEQ/1,000 ML INFUS.BAG IV SCH ×2 (10:22→21:51)
[2020-04-26] MEDS: TIOTROPIUM BROMIDE 2.5 MCG (SPIRIVA) RESPIMAT INHALER IH SCH (10:23)
--- NOTE | 2020-04-26 11:21 | CONSULT ---
Consultation: REQUESTING PROVIDER: Dr. Birch CONSULT REQUEST: We have been asked to medically evaluate this patient for hypercalcemia, osteolytic lesions. HISTORY OF PRESENT ILLNESS: 74 y/o M PMHx HTN, DM, HLD, ILD, BPH, AAA (s/p repair) presents with weakness after being found on the ground. patient has been complaining of weakness for the past few month accompanied by decreased appetite, unintentional 20lb weight loss, fatigue with minimal activity, and diffuse pain. His weakness has progressed to the point where he was unable to get up from the ground until his niece assisted him prompting his visit to [facility]. Initial Labwork reveals Calcium 14.7, JEAN, Alk Phos 150, Lactate 4.2 for which the patient was given IVF, Calcitonin, Bisphosphonates. Initial imaging was suggestive of mestastic neoplasm (Multiple osteolytic lesions, T5/T6/L1 Compresion fx, Pelvic Lymphadenopathy). Patient was admitted and Oncology was consulted for occult malignancy. During my interview, patient was able to tolerate PO intake but complained of diffuse pain. Patient says his most recent colonoscopy was one year ago but he is unsure of the results. Denies any fevers, chills, chest pain, SOB, nausea, vomiting diarrhea, constipation Denies any chnage in stool color, melena, hemoptysis, hematochezia, hematuria. Denies any FHx of malignancy. PMHx: As per HPI PSHx: Aortic Valve repair Social: Quit tobacco one year ago (25 pack year hx), Quit EtOH 15 years ago, Denies drug use FHx: Mother with Cardiac Disease, Father with CKD REVIEW OF SYSTEMS: As per HPI PHYSICAL EXAMINATION Vital Signs Temperature 98.1 F 04/26/20 10:34 Pulse Rate 93 H 04/26/20 10:34 Respiratory Rate 04/26/20 10:34 Blood Pressure 112/70 04/26/20 10:34 O2 Sat by Pulse Oximetry (%) 92 L 04/26/20 10:34 GENERAL: A&Ox3, NAD HEAD: NCAT EYES: PERRL, EOMI ENT: Moist mucous membranes NECK: Supple, No JVD LUNGS: Diminished breath sounds at the bases, No Wheezes, Taking shallow breaths due to pain, HEART: Regular rate and rhythm, normal S1 and S2 without murmur ABDOMEN: Soft, nontender, not distended, + bowel sounds, no guarding, no rebound MUSCULOSKELETAL: tender to light palpation throughout EXTREMITIES: Digital clubbing in UE. No peripheral edema. NEUROLOGICAL: Cranial nerves II-XII intact. 4/5 muscle strength throughout, Otherwise no FND SKIN: Warm, dry Laboratory Last Values WBC 9.3 K/mm3 (4.0-10.0) 04/26/20 04:45 RBC 4.46 M/mm3 (4.00-5.60) 04/26/20 04:45 Hgb 13.6 GM/dL (11.7-16.9) 04/26/20 04:45 Hct 39.5 % (35.4-49) 04/26/20 04:45 MCV 88.5 fl (80-96) 04/26/20 04:45 MCH 30.6 pg (25.7-33.7) 04/26/20 04:45 MCHC 34.6 g/dl (32.0-35.9) 04/26/20 04:45 RDW 14.3 % (11.9-15.9) 04/26/20 04:45 Plt Count 122 K/MM3 (134-434) L 04/26/20 04:45 MPV 8.5 fl (7.5-11.1) 04/26/20 04:45 Absolute Neuts (auto) 7.8 K/mm3 (1.5-8.0) 04/25/20 14:55 Total Counted 100 04/25/20 14:55 Neutrophils % 75.8 % (42.8-82.8) D 04/25/20 14:55 Neutrophils % (Manual) 75.0 % (42.8-82.8) 04/25/20 14:55 Lymphocytes % 17.5 % (8-40) D 04/25/20 14:55 Lymphocytes % (Manual) 18.0 % (8-40) 04/25/20 14:55 Monocytes % 5.4 % (3.8-10.2) 04/25/20 14:55 Monocytes % (Manual) 3 % (3.8-10.2) L 04/25/20 14:55 Eosinophils % 0.9 % (0-4.5) 04/25/20 14:55 Basophils % 0.4 % (0-2.0) 04/25/20 14:55 Myelocytes % (Man) 4 % (0-2) H 04/25/20 14:55 Nucleated RBC % 1 % (0-0) H 04/25/20 14:55 PT with INR 14.70 SEC (9.7-13.0) H 04/26/20 04:45 INR 1.24 (0.83-1.09) H 04/26/20 04:45 Sodium 139 mmol/L (136-145) 04/26/20 04:45 Potassium 3.3 mmol/L (3.5-5.1) L 04/26/20 04:45 Chloride 104 mmol/L (98-107) 04/26/20 04:45 Carbon Dioxide 28 mmol/L (21-32) 04/26/20 04:45 Anion Gap 7 MMOL/L (8-16) L 04/26/20 04:45 BUN 20.7 mg/dL (7-18) H 04/26/20 04:45 Creatinine 1.0 mg/dL (0.55-1.3) 04/26/20 04:45 Est GFR (CKD-EPI)AfAm 85.55 04/26/20 04:45 Est GFR (CKD-EPI)NonAf 73.82 04/26/20 04:45 POC Glucometer 125 UNITS (80-120) 04/26/20 06:21 Random Glucose 128 mg/dL (74-106) H 04/26/20 04:45 Lactic Acid 1.5 mmol/L (0.4-2.0) 04/25/20 19:05 Calcium 10.8 mg/dL (8.5-10.1) H 04/26/20 04:45 Phosphorus 2.6 mg/dL (2.5-4.9) 04/26/20 04:45 Magnesium 1.1 mg/dL (1.8-2.4) L 04/26/20 04:45 Total Bilirubin 0.9 mg/dL (0.2-1) 04/26/20 04:45 AST 33 U/L (15-37) 04/26/20 04:45 ALT 17 U/L (13-61) 04/26/20 04:45 Alkaline Phosphatase 129 U/L (45-117) H 04/26/20 04:45 Creatine Kinase 536 U/L (26-308) H 04/25/20 14:55 Creatine Kinase Index 1.3 % (0.0-5.0) 04/25/20 14:55 CK-MB (CK-2) 7.4 ng/mL (0.5-3.6) H 04/25/20 14:55 Troponin I < 0.02 ng/ml (0.00-0.05) 04/25/20 14:55 B-Natriuretic Peptide 436.3 pg/ml (5-125) H 04/25/20 14:55 Total Protein 6.7 g/dl (6.4-8.2) 04/26/20 04:45 Albumin 3.2 g/dl (3.4-5.0) L 04/26/20 04:45 25-OH Vitamin D Total 17.2 ng/mL (30-100) L 04/26/20 07:42 TSH 1.98 uIU/ml (0.358-3.74) 04/26/20 04:45 Urine Color Yellow 04/25/20 23:15 Urine Appearance Clear 04/25/20 23:15 Urine pH 6.0 (5.0-8.0) 04/25/20 23:15 Ur Specific [place] 1.012 (1.010-1.035) 04/25/20 23:15 Urine Protein Negative (NEGATIVE) 04/25/20 23:15 Urine Glucose (UA) Negative (NEGATIVE) 04/25/20 23:15 Urine Ketones Negative (NEGATIVE) 04/25/20 23:15 Urine Blood Negative (NEGATIVE) 04/25/20 23:15 Urine Nitrite Negative (NEGATIVE) 04/25/20 23:15 Urine Bilirubin Negative (NEGATIVE) 04/25/20 23:15 Urine Urobilinogen 0.2 mg/dL (0.2-1.0) 04/25/20 23:15 Ur Leukocyte Esterase Negative (NEGATIVE) 04/25/20 23:15 Active Medications Acetaminophen (Tylenol -) 650 mg PO Q4H PRN PRN Reason: PAIN LEVEL 1-5 Albuterol Sulfate (Ventolin Hfa Inhaler -) 2 puff IH Q4H PRN PRN Reason: SHORT OF BREATH/WHEEZING Docusate Sodium (Colace -) 100 mg PO BID PRN PRN Reason: CONSTIPATION Last Admin: 04/26/20 10:10 Dose: 100 mg Documented by: Furosemide (Lasix Injection -) 20 mg IVPUSH DAILY [facility] Last Admin: 04/26/20 10:08 Dose: 20 mg Documented by: Heparin Sodium (Porcine) (Heparin -) 5,000 unit SQ TID [facility] Potassium Chloride/Sodium Chloride (1/2ns+20meq Kcl) 20 meq in 1,000 mls @ 83 mls/hr IV ASDIR [facility] Last Admin: 04/26/20 10:22 Dose: 83 mls/hr Documented by: Insulin Aspart (Novolog Vial Sliding Scale -) 1 vial SQ ACHS [facility]; Protocol Last Admin: 04/26/20 06:32 Dose: Not Given Documented by: Morphine Sulfate (Morphine Sulfate) 2 mg IVPUSH Q4H PRN PRN Reason: PAIN LEVEL 7 - 10 Last Admin: 04/26/20 10:11 Dose: 2 mg Documented by: Rosuvastatin Calcium (Crestor -) 10 mg PO HS [facility] Last Admin: 04/26/20 02:43 Dose: Not Given Documented by: Fluticasone/Salmeterol (Advair 100mcg/50mcg -) 1 puff IH BID [facility] Last Admin: 04/26/20 10:10 Dose: 1 puff Documented by: Tamsulosin HCl (Flomax -) 0.4 mg PO DAILY@0830 [facility] Last Admin: 04/26/20 10:08 Dose: 0.4 mg Documented by: Tiotropium Cal[place] (Spiriva Respimat) 2 puff IH DAILY [facility] Last Admin: 04/26/20 10:23 Dose: Not Given Documented by: ASSESSMENT/PLAN: 74 y/o M PMHx HTN, DM, HLD, ILD, BPH, AAA (s/p repair) presents with weakness. Recently experienced decreased appetite, unintentional 20lb weight loss and diffuse pain. Initial Labwork reveals Calcium 14.7 (treated), JEAN. Initial imaging was suggestive of mestastic neoplasm (Multiple osteolytic lesions, T5/T6/L1 Compresion fx, Pelvic Lymphadenopathy). Patient was admitted and Oncology was consulted for occult malignancy. #Osteolytic lesions + LAD -Concering for Multiple myeloma vs other occult malignancy -Analgesia as pain not well controlled -Follow SPEP, UPEP, LUISANA, Immunoglobulins, Light chains ([place], Lambda), PSA, CEA, CA 19-9, CA 125 -Nephrology consult appreciated -May need T-Spine lesion biopsy vs bone marrow biopsy pending above -Will need to obtain outpatient cancer screening record from PCP Dispo: We will continue to follow the patient. Thank you for this consultative opportunity. Visit type - Medication Review Med list reviewed for High Risk Meds patients 65 and older: Yes - Emergency Visit Emergency Visit: Yes ED Registration Date: 04/25/20 Care time: The patient presented to the Emergency Department on the above date and was hospitalized for further evaluation of their emergent condition. - New Patient This patient is new to me today: Yes Date on this admission: 04/26/20 - Critical Care Critical Care patient: No ATTENDING PHYSICIAN STATEMENT I saw and evaluated the patient. I reviewed the resident's note and discussed the case with the resident. I agree with the resident's findings and plan as documented. SUBJECTIVE: OBJECTIVE: ASSESSMENT AND PLAN:
[2020-04-26] MEDS: ACETAMINOPHEN 325 MG TABLET (FP) PO PRN (13:44)
--- NOTE | 2020-04-26 14:04 | EKG ---
Test Reason : Blood Pressure : / mmHG Vent. Rate : 099 BPM Atrial Rate : 099 BPM P-R Int : 142 ms QRS Dur : 098 ms QT Int : 338 ms P-R-T Axes : 066 081 000 degrees QTc Int : 433 ms NORMAL SINUS RHYTHM POSSIBLE LEFT ATRIAL ENLARGEMENT NONSPECIFIC T WAVE ABNORMALITY ABNORMAL ECG WHEN COMPARED WITH ECG OF 25-APR-2020 13:07, NO SIGNIFICANT CHANGE WAS FOUND Confirmed by RIO REESE MD ([id number]) on 04/26/2020 2:04:01 PM Referred By: Confirmed By:RIO REESE MD
--- NOTE | 2020-04-26 14:06 | EKG ---
Test Reason : Blood Pressure : / mmHG Vent. Rate : 099 BPM Atrial Rate : 099 BPM P-R Int : 126 ms QRS Dur : 096 ms QT Int : 304 ms P-R-T Axes : 070 076 001 degrees QTc Int : 390 ms POOR DATA QUALITY, INTERPRETATION MAY BE ADVERSELY AFFECTED NORMAL SINUS RHYTHM POSSIBLE LEFT ATRIAL ENLARGEMENT LEFT VENTRICULAR HYPERTROPHY NONSPECIFIC ST AND T WAVE ABNORMALITY ABNORMAL ECG NO PREVIOUS ECGS AVAILABLE Confirmed by HUGH WHITLOCK, RIO ([id number]) on 04/26/2020 2:05:25 PM Referred By: Confirmed By:RIO REESE MD
[2020-04-26] MEDS ORDERED: MAGNESIUM SULF 50% (8.12 MEQ/2 ML-1 GM VIAL) IVPB ONE (14:48)
[2020-04-26] MEDS ORDERED: POTASSIUM CHLORIDE ORAL LIQUID 20 MEQ/15 ML PO ONE (14:48)
--- NOTE | 2020-04-26 14:48 | PN ---
Teaching Attending Note Name of Resident: Chas Topete (Nephrology) ATTENDING PHYSICIAN STATEMENT I saw and evaluated the patient. I reviewed the resident's note and discussed the case with the resident. I agree with the resident's findings and plan as documented. Renal Pt is a 74 year old male with pmhx of htn, dm, hld, ild, and bph who presents to the ER with weakness and lethargy. He has had about a 20 pound weight loss. He was found to be hypercalcemic. Pmhx htn dm ild bph aortic aneurysm nkda social hx denies ros lethargy Laboratory Tests 04/25/20 04/25/20 04/25/20 14:55 14:55 16:30 Sodium 139 Potassium 3.5 Creatinine 1.3 Lactic Acid 4.2 H* Calcium 14.7 H* Magnesium Urine Protein Urine Blood LUISANA M-Kendrick COVID-19 (ANASTACIA) Pending 04/25/20 04/25/20 04/26/20 19:05 23:15 04:45 Sodium Potassium 3.3 L Creatinine Lactic Acid 1.5 Calcium 10.8 H Magnesium 1.1 L Urine Protein Negative Urine Blood Negative LUISANA M-Kendrick COVID-19 (ANASTACIA) 04/26/20 06:20 Sodium Potassium Creatinine Lactic Acid Calcium Magnesium Urine Protein Urine Blood LUISANA M-Kendrick Pending COVID-19 (ANASTACIA) Last Vital Signs Temp Pulse Resp BP Pulse Ox 98.1 F 93 H 20 112/70 98 04/26/20 10:34 04/26/20 10:34 04/26/20 10:34 04/26/20 10:34 04/26/20 12:26 Current Medications Generic Name Dose Route Start Last Admin Trade Name Freq PRN Reason Stop Dose Admin Acetaminophen 650 mg 04/25/20 20:56 04/26/20 13:44 Tylenol - PO 650 mg Q4H PRN Administration PAIN LEVEL 1-5 Albuterol Sulfate 2 puff 04/25/20 21:40 Ventolin Hfa Inhaler - IH Q4H PRN SHORT OF BREATH/WHEEZING Docusate Sodium 100 mg 04/25/20 21:01 04/26/20 10:10 Colace - PO 100 mg BID PRN Administration CONSTIPATION Furosemide 20 mg 04/25/20 21:15 04/26/20 10:08 Lasix Injection - IVPUSH 20 mg DAILY [facility] Administration Heparin Sodium (Porcine) 5,000 unit 04/26/20 22:00 Heparin - SQ TID [facility] Potassium Chloride/Sodium Chloride 20 meq in 1,000 mls @ 83 mls/hr 04/26/20 08:30 04/26/20 10:22 1/2ns+20meq Kcl IV 83 mls/hr ASDIR [facility] Administration Insulin Aspart 1 vial 04/25/20 22:00 04/26/20 11:46 Novolog Vial Sliding Scale - SQ Not Given ACHS [facility] Protocol Morphine Sulfate 2 mg 04/25/20 20:56 04/26/20 10:11 Morphine Sulfate IVPUSH 2 mg Q4H PRN Administration PAIN LEVEL 7 - 10 Rosuvastatin Calcium 10 mg 04/25/20 22:00 04/26/20 02:43 Crestor - PO Not Given HS [facility] Fluticasone/Salmeterol 1 puff 04/25/20 22:00 04/26/20 10:10 Advair 100mcg/50mcg - IH 1 puff BID [facility] Administration Tamsulosin HCl 0.4 mg 04/26/20 08:30 04/26/20 10:08 Flomax - PO 0.4 mg DAILY@0830 [facility] Administration Tiotropium [place] 2 puff 04/26/20 10:00 04/26/20 10:23 Spiriva Respimat IH Not Given DAILY [facility] cardo s1s2 pulm clear gi soft ext neg edema neuro awake Impression 1. mamie 2. hypercalcemia 3. hld 4. ild 5. htn 6. hypokalemia 7. hypomagnesemia 8. DM 9. lactic acidosis Plan - monitor calcium levels - ua neg for blood or protein - check spep and light chains - replace lytes
[2020-04-26] MEDS ORDERED: MAGNESIUM SULFATE IN WATER 2 GM/50 ML IVPB IVPB ONE (15:00)
--- NOTE | 2020-04-26 17:10 | PN ---
Teaching Attending Note Name of Resident: Carmela Francis ATTENDING PHYSICIAN STATEMENT I saw and evaluated the patient. I reviewed the resident's note and discussed the case with the resident. I agree with the resident's findings and plan as documented. 74M HTN, DM, HLD, AA repair 2019 presents after his niece found him on the floor with inability to ambulate. Patient endorses generalized weakness with anorexia and 20lbs weight loss x 1 month. Labs notable for leukocytosis of 10.3, Hb 15.1, plts 140. Chem notable for elevated ca of 14, treated with IV fluids, calcitonin and zometa now 10.8 today, Cr 1, LFTS wnl but alk phos elevated to 129. Imaging notable for multiple vertebral body osteolytic lesions concerning for metastatic dz. Pathological T6 compression fracture. Also with b/l rib osteolytic lesions, mild subcarinal mediastinal LAD noted and b/l upper and lower pulm fibrosis. Recommend SPEP, UPEP, LUISANA, immunoglobulins and kappa/lambda light chains. Would also send off PSA, Ca 19-9, CEA, CA 125 tumor markers. Patient may need a biopsy of thoracic lesion vs bone marrow biopsy pending above workup results. Pain management with long acting and breakthrough as his pain is not well controlled.
[2020-04-26] MEDS: HEPARIN NA (PORCINE) 5,000 UNITS/ML 1ML VIAL SQ SCH (21:51)
[2020-04-26] MEDS: MAGNESIUM OXIDE 400 MG TABLET (FP) PO SCH (21:52)
[2020-04-27] MEDS: INSULIN SLIDING SCALE (NOVOLOG) 1 VIAL SQ SCH (06:08)
[2020-04-27] MEDS: MORPHINE SULFATE 2 MG/ML VIAL IVPUSH PRN ×2 (06:09→10:18)
[2020-04-27] MEDS: HEPARIN NA (PORCINE) 5,000 UNITS/ML 1ML VIAL SQ SCH ×3 (06:09→22:31)
[2020-04-27 08:38] LABS: BASO % 0.4 % (0-2.0); EOS % 3.9 % (0-4.5); HEMATOCRIT 35.7 % (35.4-49); HEMOGLOBIN 12.3 GM/dL (11.7-16.9); LYMPH % 20.3 % (8-40); MCH 30.8 pg (25.7-33.7); MCHC 34.4 g/dl (32.0-35.9); MEAN CELL VOLUME 89.4 fl (80-96); MEAN PLT VOLUME 9.1 fl (7.5-11.1); MONO % 7.2 % (3.8-10.2); NEUT % 68.2 % (42.8-82.8); PLATELET COUNT 115 K/MM3 (134-434); RBC 3.99 M/mm3 (4.00-5.60); RDW 14.2 % (11.9-15.9); WHITE BLOOD COUNT 7.6 K/mm3 (4.0-10.0)
[2020-04-27 09:10] LABS: ALBUMIN 3.1 g/dl (3.4-5.0); BLOOD UREA NITROGEN 16.6 mg/dL (7-18); CALCIUM 9.7 mg/dL (8.5-10.1); CREATININE 0.9 mg/dL (0.55-1.3); MAGNESIUM 1.3 mg/dL (1.8-2.4)
[2020-04-27 09:13] LABS: TOT PROT 6.4 g/dl (6.4-8.2)
--- NOTE | 2020-04-27 10:17 | PN ---
Physical Exam: HEMATOLOGY/ONCOLOGY SUBJECTIVE: Patient seen and examined this this AM. Temp 99.9 ovenight. Remains in pain, otherwise no acute events. OBJECTIVE: Vital Signs Period Temp Pulse Resp BP Sys/Navarrete Pulse Ox Last 24 Hr 97.9 F-99.9 F 90-100 18-28 92-128/53-70 91-98 GENERAL: A&Ox3, NAD HEAD: NCAT EYES: PERRL, EOMI ENT: Moist mucous membranes NECK: Supple, No JVD LUNGS: Diminished breath sounds at the bases, No Wheezes, Taking shallow breaths due to pain, HEART: Regular rate and rhythm, normal S1 and S2 without murmur ABDOMEN: Soft, nontender, not distended, + bowel sounds, no guarding, no rebound MUSCULOSKELETAL: tender to light palpation throughout EXTREMITIES: Digital clubbing in UE. No peripheral edema. NEUROLOGICAL: Cranial nerves II-XII intact. 4/5 muscle strength throughout, Otherwise no FND SKIN: Warm, dry Laboratory Last Values WBC 7.6 K/mm3 (4.0-10.0) 04/27/20 06:48 RBC 3.99 M/mm3 (4.00-5.60) L 04/27/20 06:48 Hgb 12.3 GM/dL (11.7-16.9) 04/27/20 06:48 Hct 35.7 % (35.4-49) 04/27/20 06:48 MCV 89.4 fl (80-96) 04/27/20 06:48 MCH 30.8 pg (25.7-33.7) 04/27/20 06:48 MCHC 34.4 g/dl (32.0-35.9) 04/27/20 06:48 RDW 14.2 % (11.9-15.9) 04/27/20 06:48 Plt Count 115 K/MM3 (134-434) L 04/27/20 06:48 MPV 9.1 fl (7.5-11.1) 04/27/20 06:48 Absolute Neuts (auto) 5.2 K/mm3 (1.5-8.0) 04/27/20 06:48 Total Counted 100 04/25/20 14:55 Neutrophils % 68.2 % (42.8-82.8) 04/27/20 06:48 Neutrophils % (Manual) 75.0 % (42.8-82.8) 04/25/20 14:55 Lymphocytes % 20.3 % (8-40) 04/27/20 06:48 Lymphocytes % (Manual) 18.0 % (8-40) 04/25/20 14:55 Monocytes % 7.2 % (3.8-10.2) 04/27/20 06:48 Monocytes % (Manual) 3 % (3.8-10.2) L 04/25/20 14:55 Eosinophils % 3.9 % (0-4.5) D 04/27/20 06:48 Basophils % 0.4 % (0-2.0) 04/27/20 06:48 Myelocytes % (Man) 4 % (0-2) H 04/25/20 14:55 Nucleated RBC % 0 % (0-0) 04/27/20 06:48 PT with INR 14.70 SEC (9.7-13.0) H 04/26/20 04:45 INR 1.24 (0.83-1.09) H 04/26/20 04:45 Sodium 136 mmol/L (136-145) 04/27/20 06:48 Potassium 4.0 mmol/L (3.5-5.1) 04/27/20 06:48 Chloride 103 mmol/L (98-107) 04/27/20 06:48 Carbon Dioxide 25 mmol/L (21-32) 04/27/20 06:48 Anion Gap 8 MMOL/L (8-16) 04/27/20 06:48 BUN 16.6 mg/dL (7-18) 04/27/20 06:48 Creatinine 0.9 mg/dL (0.55-1.3) 04/27/20 06:48 Est GFR (CKD-EPI)AfAm 97.17 04/27/20 06:48 Est GFR (CKD-EPI)NonAf 83.84 04/27/20 06:48 POC Glucometer 137 UNITS (80-120) 04/27/20 06:08 Random Glucose 123 mg/dL (74-106) H 04/27/20 06:48 Lactic Acid 1.5 mmol/L (0.4-2.0) 04/25/20 19:05 Calcium 9.7 mg/dL (8.5-10.1) 04/27/20 06:48 Phosphorus 2.6 mg/dL (2.5-4.9) 04/26/20 04:45 Magnesium 1.3 mg/dL (1.8-2.4) L 04/27/20 06:48 Total Bilirubin 1.0 mg/dL (0.2-1) 04/27/20 06:48 AST 25 U/L (15-37) 04/27/20 06:48 ALT 15 U/L (13-61) 04/27/20 06:48 Alkaline Phosphatase 121 U/L (45-117) H 04/27/20 06:48 Creatine Kinase 536 U/L (26-308) H 04/25/20 14:55 Creatine Kinase Index 1.3 % (0.0-5.0) 04/25/20 14:55 CK-MB (CK-2) 7.4 ng/mL (0.5-3.6) H 04/25/20 14:55 Troponin I < 0.02 ng/ml (0.00-0.05) 04/25/20 14:55 B-Natriuretic Peptide 436.3 pg/ml (5-125) H 04/25/20 14:55 Total Protein 6.4 g/dl (6.4-8.2) 04/27/20 06:48 Albumin 3.1 g/dl (3.4-5.0) L 04/27/20 06:48 25-OH Vitamin D Total 17.2 ng/mL (30-100) L 04/26/20 07:42 TSH 1.98 uIU/ml (0.358-3.74) 04/26/20 04:45 PTH Intact 11 pg/mL (15-65) L 04/26/20 06:20 Urine Color Yellow 04/25/20 23:15 Urine Appearance Clear 04/25/20 23:15 Urine pH 6.0 (5.0-8.0) 04/25/20 23:15 Ur Specific Louise 1.012 (1.010-1.035) 04/25/20 23:15 Urine Protein Negative (NEGATIVE) 04/25/20 23:15 Urine Glucose (UA) Negative (NEGATIVE) 04/25/20 23:15 Urine Ketones Negative (NEGATIVE) 04/25/20 23:15 Urine Blood Negative (NEGATIVE) 04/25/20 23:15 Urine Nitrite Negative (NEGATIVE) 04/25/20 23:15 Urine Bilirubin Negative (NEGATIVE) 04/25/20 23:15 Urine Urobilinogen 0.2 mg/dL (0.2-1.0) 04/25/20 23:15 Ur Leukocyte Esterase Negative (NEGATIVE) 04/25/20 23:15 COVID-19 (ANASTACIA) Not detected (Not Detected) 04/25/20 16:30 Active Medications Acetaminophen (Tylenol -) 650 mg PO Q4H PRN PRN Reason: PAIN LEVEL 1-5 Last Admin: 04/26/20 13:44 Dose: 650 mg Documented by: Albuterol Sulfate (Ventolin Hfa Inhaler -) 2 puff IH Q4H PRN PRN Reason: SHORT OF BREATH/WHEEZING Docusate Sodium (Colace -) 100 mg PO BID PRN PRN Reason: CONSTIPATION Last Admin: 04/26/20 10:10 Dose: 100 mg Documented by: Furosemide (Lasix Injection -) 20 mg IVPUSH DAILY [facility] Last Admin: 04/26/20 10:08 Dose: 20 mg Documented by: Heparin Sodium (Porcine) (Heparin -) 5,000 unit SQ TID [facility] Last Admin: 04/27/20 06:09 Dose: 5,000 unit Documented by: Potassium Chloride/Sodium Chloride (1/2ns+20meq Kcl) 20 meq in 1,000 mls @ 83 mls/hr IV ASDIR [facility] Last Admin: 04/26/20 21:51 Dose: 83 mls/hr Documented by: Insulin Aspart (Novolog Vial Sliding Scale -) 1 vial SQ ACHS [facility]; Protocol Last Admin: 04/27/20 06:08 Dose: Not Given Documented by: Magnesium Oxide (Mag-Ox -) 400 mg PO BID [facility] Last Admin: 04/26/20 21:52 Dose: 400 mg Documented by: Morphine Sulfate (Morphine Sulfate) 2 mg IVPUSH Q4H PRN PRN Reason: PAIN LEVEL 7 - 10 Last Admin: 04/27/20 06:09 Dose: 2 mg Documented by: Rosuvastatin Calcium (Crestor -) 10 mg PO HS [facility] Last Admin: 04/26/20 21:52 Dose: 10 mg Documented by: Fluticasone/Salmeterol (Advair 100mcg/50mcg -) 1 puff IH BID [facility] Last Admin: 04/26/20 21:52 Dose: 1 puff Documented by: Tamsulosin HCl (Flomax -) 0.4 mg PO DAILY@0830 [facility] Last Admin: 04/26/20 10:08 Dose: 0.4 mg Documented by: Tiotropium [place] (Spiriva Respimat) 2 puff IH DAILY [facility] Last Admin: 04/26/20 10:23 Dose: Not Given Documented by: ASSESSMENT/PLAN: 74 y/o M PMHx HTN, DM, HLD, ILD, BPH, AAA (s/p repair) presents with weakness. Recently experienced decreased appetite, unintentional 20lb weight loss and diffuse pain. Initial Labwork reveals Calcium 14.7 (treated), JEAN. Initial imaging was suggestive of mestastic neoplasm (Multiple osteolytic lesions, T5/T6/L1 Compresion fx, Pelvic Lymphadenopathy). Patient was admitted and Oncology was consulted for occult malignancy. #Osteolytic lesions + LAD -Concering for Multiple myeloma vs other occult malignancy -Analgesia -Follow SPEP, UPEP, LUISANA, Immunoglobulins, Light chains ([place], Lambda), PSA, CEA, CA 19-9, CA 125 -Nephrology consult appreciated -May need T-Spine lesion biopsy vs bone marrow biopsy pending above -Will need to obtain outpatient cancer screening record from PCP -Monitor PLT as currently downtrending Visit type - Emergency Visit Emergency Visit: Yes ED Registration Date: 04/25/20 Care time: The patient presented to the Emergency Department on the above date and was hospitalized for further evaluation of their emergent condition. - New Patient This patient is new to me today: Yes Date on this admission: 04/27/20 - Critical Care Critical Care patient: No - Discharge Referral Referred to [facility] No - Medication Review Med list reviewed for High Risk Meds patients 65 and older: No ATTENDING PHYSICIAN STATEMENT I saw and evaluated the patient. I reviewed the resident's note and discussed the case with the resident. I agree with the resident's findings and plan as documented. SUBJECTIVE: OBJECTIVE: ASSESSMENT AND PLAN:
[2020-04-27] MEDS: SODIUM CHLORIDE 0.45%/POT 20 MEQ/1,000 ML INFUS.BAG IV SCH ×2 (10:21→13:15)
[2020-04-27] MEDS: MAGNESIUM OXIDE 400 MG TABLET (FP) PO SCH ×2 (10:21→22:30)
[2020-04-27] MEDS: TAMSULOSIN HCL 0.4 MG CAP PO SCH (10:21)
[2020-04-27] MEDS: FLUTICASONE/SALMETEROL 100 MCG/50 MCG DISKUS IH SCH ×2 (10:21→22:31)
[2020-04-27] MEDS: FUROSEMIDE 40 MG/4 ML INJECTABLE VIAL IVPUSH SCH (10:21)
--- NOTE | 2020-04-27 10:26 | PN ---
Progress Note, Physician Chief Complaint: Weakness Fall Weight loss SOB Multiple Vertebral fractures History of Present Illness: 74 YO man with Mhx of HTN, DM, HLD, ILD, BPH and Aortic Aneurysm s/p repair 1 year ago, presented to ED after his niece found him on floor and unable to get up. Pt reported that he started having pain and weakness all over his body over the last month, associated with decreased appetite and wt loss (reported 20lbs loss). His symptoms became worse over the last 5 days, and last night he was feeling so weak, he sat on floor and couldn't get up till his niece came to check on him and found him on floor. He denies LOC, dizziness, change in urine or bowel habits. No cough or fever reported. Upon evaluation in the ER, pt was noted to have: CT C Spine 04/25/20: Multilevel degenerative disc changes are noted. Mild multilevel patchy osseous low-attenuation is seen which could be on the basis of osteoporosis. Neoplastic disease is less likely. Comparison with prior CT/MRI exams is suggested if available from a different facility. CT head: A small curvilinear hypodense focus is noted within the left basal ganglia possibly representing a chronic infarct versus a nonspecific mildly dilated vessel. Correlation with nonemergent contrast enhanced MRI or CT is suggested. Several small bilateral frontal subcortical white matter hypodense foci are seen which may represent chronic infarct versus chronic microvascular ischemic c hanges. Mild periventricular chronic microvascular ischemic changes are noted. There is mild deformity of the medial wall of the right orbit consistent with a fracture which is probably chronic. Correlate clinically. CTAP: 1.An expansile approximately 5 x 4 cm osteolytic lesion is seen involving the right iliac bone ventrally with an extraosseous soft tissue component. 2.Smaller less prominent nonexpansile osteolytic lesions are seen within the lumbosacral spine and bilateral iliac bones. 3.Mild pathologic L1 vertebral body compression fracture with minimal bony r etropulsion. 4.There are probable small osteolytic lesions within the femoral heads and necks bilaterally. Several enlarged right internal iliac lymph nodes are noted within the lower pelvis the most prominent measuring 1.7 cm in diameter. 5. There is mild fusiform aneurysmal dilatation of the suprarenal aorta with a 3.4 cm diameter. 6. Incidental left renal cortical cysts. 7. Moderate prostate enlargement. 8. Mild diffuse urinary bladder wall thickening is noted probably on the basis of chronic outlet obstruction. CT Chest: 1. In comparison to a previous CT exam of 07/12/2013 interval development of multilevel thoracic vertebral body osteolytic lesions are noted. 2. Minimal T5 and mild T6 pathologic vertebral body compression fractures are noted. There is mild bony retropulsion at the T6 level. 3. Prominently increased fibrosis within the upper and lower lung mondragon bilaterally, left more than right. 4. Interval development of several mildly enlarged subcarinal mediastinal lymph nodes is noted. Development of several multilevel bilateral rib osteolytic lesions are seen suggestive of neoplastic disease. 5. Status post interval median sternotomy, Allowing for partially obscuring metallic artifact there are possible small osteolytic lesions within the sternal body. 6. As on prior exam there is fusiform aneurysmal dilatation of the aortic arch and descending aorta with a 3.7 cm diameter. Currently c/o of pain 10/10 with no relief with morphine and tylenol C/O weight loss, unsure how many lbs, Last saw PCP 2 weeks ago,c/o of generalized pain, more prominently right sided chest pain. - Current Medication List Current Medications: Active Medications Acetaminophen (Tylenol -) 650 mg PO Q4H PRN PRN Reason: PAIN LEVEL 1-5 Last Admin: 04/26/20 13:44 Dose: 650 mg Documented by: Albuterol Sulfate (Ventolin Hfa Inhaler -) 2 puff IH Q4H PRN PRN Reason: SHORT OF BREATH/WHEEZING Docusate Sodium (Colace -) 100 mg PO BID PRN PRN Reason: CONSTIPATION Last Admin: 04/26/20 10:10 Dose: 100 mg Documented by: Furosemide (Lasix Injection -) 20 mg IVPUSH DAILY [facility] Last Admin: 04/26/20 10:08 Dose: 20 mg Documented by: Heparin Sodium (Porcine) (Heparin -) 5,000 unit SQ TID [facility] Last Admin: 04/27/20 06:09 Dose: 5,000 unit Documented by: Potassium Chloride/Sodium Chloride (1/2ns+20meq Kcl) 20 meq in 1,000 mls @ 83 mls/hr IV ASDIR [facility] Last Admin: 04/26/20 21:51 Dose: 83 mls/hr Documented by: Insulin Aspart (Novolog Vial Sliding Scale -) 1 vial SQ ACHS [facility]; Protocol Last Admin: 04/27/20 06:08 Dose: Not Given Documented by: Magnesium Oxide (Mag-Ox -) 400 mg PO BID [facility] Last Admin: 04/26/20 21:52 Dose: 400 mg Documented by: Morphine Sulfate (Morphine Sulfate) 2 mg IVPUSH Q4H PRN PRN Reason: PAIN LEVEL 7 - 10 Last Admin: 04/27/20 06:09 Dose: 2 mg Documented by: Rosuvastatin Calcium (Crestor -) 10 mg PO HS [facility] Last Admin: 04/26/20 21:52 Dose: 10 mg Documented by: Fluticasone/Salmeterol (Advair 100mcg/50mcg -) 1 puff IH BID [facility] Last Admin: 04/26/20 21:52 Dose: 1 puff Documented by: Tamsulosin HCl (Flomax -) 0.4 mg PO DAILY@0830 [facility] Last Admin: 04/26/20 10:08 Dose: 0.4 mg Documented by: Tiotropium [place] (Spiriva Respimat) 2 puff IH DAILY [facility] Last Admin: 04/26/20 10:23 Dose: Not Given Documented by: - Objective Vital Signs: Vital Signs Temperature 98.0 F 04/27/20 05:43 Pulse Rate 92 H 04/27/20 05:43 Respiratory Rate 18 04/27/20 05:43 Blood Pressure 127/68 04/27/20 05:43 O2 Sat by Pulse Oximetry (%) 94 L 04/27/20 05:43 Constitutional: Yes: Calm, Cachectic, Mild Distress (Generalized pain) Cardiovascular: Yes: Regular Rate and Rhythm Respiratory: Yes: Regular, CTA Bilaterally Gastrointestinal: Yes: Normal Bowel Sounds, Soft Genitourinary: Yes: WNL Musculoskeletal: Yes: WNL Extremities: Yes: WNL Edema: No Peripheral Pulses WNL: Yes Neurological: Yes: Alert, Oriented Psychiatric: Yes: Alert, Oriented Labs: CBC, BMP 04/27/20 06:48 04/27/20 06:48 INR, PTT INR 1.24 (0.83-1.09) H 04/26/20 04:45 Problem List - Problems (1) Cachexia Problems reviewed: Yes Code(s): R64 - CACHEXIA (2) Malnutrition Assessment/Plan: -Start multivitamin -Start mirtazapine 7.5 mg po HS -Ensure BID + Magic cup Problems reviewed: Yes Code(s): E46 - UNSPECIFIED PROTEIN-CALORIE MALNUTRITION (3) JEAN (acute kidney injury) Assessment/Plan: -Resolved -Likely 2/2 to dehydration -monitor trend -Nephrology on board Problems reviewed: Yes Code(s): N17.9 - ACUTE KIDNEY FAILURE, UNSPECIFIED (4) Aortic aneurysm Assessment/Plan: -3.4 cm suprarenal aortic aneurysm, monitor for now Problems reviewed: Yes Code(s): I71.9 - AORTIC ANEURYSM OF UNSPECIFIED SITE, WITHOUT RUPTURE (5) Compression fracture Assessment/Plan: -Neurosurgery consult -Pain management- Acetaminophen 650 mg po Q4H PRN for pain 1-5 Dilaudid 2 mg po Q4H PRN for pain 6-10 -Start Gabapentin 100 mg po TID -Will get consult from Dr Mark Kohler for pain management Problems reviewed: Yes Code(s): LDY4561 - (6) Hypercalcemia Assessment/Plan: -Trending down -Seen by Nephrology -PTH at 11 Problems reviewed: Yes Code(s): E83.52 - HYPERCALCEMIA (7) Metastatic cancer Assessment/Plan: -Oncology consult appreciated -Immunofixation/SPEP pending -Discussion with family ongoing Problems reviewed: Yes Code(s): C79.9 - SECONDARY MALIGNANT NEOPLASM OF UNSPECIFIED SITE Qualifiers: Area of secondary neoplastic involvement: bone Qualified Code(s): C79.51 - Secondary malignant neoplasm of bone (8) Frequent falls Assessment/Plan: -Physica ltherapy -Safety precautions Problems reviewed: Yes Code(s): R29.6 - REPEATED FALLS Assessment/Plan See problem list Spoke to Wang Richards, who is the health care proxy.
[2020-04-27] MEDS ORDERED: HYDROmorphone HCl 2 MG/ML VIAL IVPUSH PRN (11:02)
[2020-04-27] MEDS: MULTIVITAMINS (DAILY MVI) TABLET (FP) PO SCH (11:16)
[2020-04-27] MEDS: TIOTROPIUM BROMIDE 2.5 MCG (SPIRIVA) RESPIMAT INHALER IH SCH ×2 (11:17→12:00)
[2020-04-27] MEDS: POLYETHYLENE GLYCOL 3350 119 GM BTL PO SCH (11:46)
[2020-04-27] MEDS: HYDROmorphone HCl 2 MG/ML VIAL IVPB PRN ×2 (11:47→19:10)
--- NOTE | 2020-04-27 12:47 | PN ---
Progress Note, Physician History of Present Illness: Pt seen and examined at bedside. He is more awake and alert today. He denies shortness of breath. - Current Medication List Current Medications: Active Medications Acetaminophen (Tylenol -) 650 mg PO Q4H PRN PRN Reason: PAIN LEVEL 1-5 Last Admin: 04/26/20 13:44 Dose: 650 mg Documented by: Albuterol Sulfate (Ventolin Hfa Inhaler -) 2 puff IH Q4H PRN PRN Reason: SHORT OF BREATH/WHEEZING Docusate Sodium (Colace -) 100 mg PO BID PRN PRN Reason: CONSTIPATION Last Admin: 04/26/20 10:10 Dose: 100 mg Documented by: Furosemide (Lasix Injection -) 20 mg IVPUSH DAILY [facility] Last Admin: 04/27/20 10:21 Dose: 20 mg Documented by: Gabapentin (Neurontin -) 100 mg PO TID [facility] Heparin Sodium (Porcine) (Heparin -) 5,000 unit SQ TID [facility] Last Admin: 04/27/20 06:09 Dose: 5,000 unit Documented by: Hydromorphone HCl (Dilaudid Vial -) 2 mg IVPB Q4H PRN PRN Reason: PAIN LEVEL 6-10 Last Admin: 04/27/20 11:47 Dose: 2 mg Documented by: Potassium Chloride/Sodium Chloride (1/2ns+20meq Kcl) 20 meq in 1,000 mls @ 83 mls/hr IV ASDIR [facility] Last Admin: 04/27/20 10:21 Dose: 83 mls/hr Documented by: Magnesium Oxide (Mag-Ox -) 400 mg PO BID [facility] Last Admin: 04/27/20 10:21 Dose: 400 mg Documented by: Mirtazapine (Remeron -) 7.5 mg PO [facility] Multivitamins/Minerals/Vitamin C (Tab-A-Vit -) 1 tab PO DAILY [facility] Last Admin: 04/27/20 11:16 Dose: 1 tab Documented by: Polyethylene Glycol (Miralax (For Daily Use) -) 17 gm PO DAILY [facility] Last Admin: 04/27/20 11:46 Dose: 17 grams Documented by: Rosuvastatin Calcium (Crestor -) 10 mg PO HS [facility] Last Admin: 04/26/20 21:52 Dose: 10 mg Documented by: Fluticasone/Salmeterol (Advair 100mcg/50mcg -) 1 puff IH BID [facility] Last Admin: 04/27/20 10:21 Dose: 1 puff Documented by: Tamsulosin HCl (Flomax -) 0.4 mg PO DAILY@0830 [facility] Last Admin: 04/27/20 10:21 Dose: 0.4 mg Documented by: Tiotropium [place] (Spiriva Respimat) 2 puff IH DAILY [facility] Last Admin: 04/27/20 12:00 Dose: 2 puff Documented by: - Objective Vital Signs: Vital Signs Temperature 99.0 F 04/27/20 10:30 Pulse Rate 96 H 04/27/20 10:30 Respiratory Rate 20 04/27/20 10:30 Blood Pressure 125/82 04/27/20 10:30 O2 Sat by Pulse Oximetry (%) 95 04/27/20 10:30 Constitutional: Yes: Calm Eyes: Yes: Conjunctiva Clear HENT: Yes: Atraumatic Neck: Yes: Supple Cardiovascular: Yes: S1, S2 Respiratory: Yes: CTA Bilaterally Gastrointestinal: Yes: Normal Bowel Sounds, Soft Genitourinary: Yes: WNL Musculoskeletal: Yes: WNL Edema: No Neurological: Yes: Oriented Psychiatric: Yes: Oriented Labs: CBC, BMP 04/27/20 06:48 04/27/20 06:48 INR, PTT INR 1.24 (0.83-1.09) H 04/26/20 04:45 Assessment/Plan Current Medications Generic Name Dose Route Start Last Admin Trade Name Freq PRN Reason Stop Dose Admin Acetaminophen 650 mg 04/25/20 20:56 04/26/20 13:44 Tylenol - PO 650 mg Q4H PRN Administration PAIN LEVEL 1-5 Albuterol Sulfate 2 puff 04/25/20 21:40 Ventolin Hfa Inhaler - IH Q4H PRN SHORT OF BREATH/WHEEZING Docusate Sodium 100 mg 04/25/20 21:01 04/26/20 10:10 Colace - PO 100 mg BID PRN Administration CONSTIPATION Furosemide 20 mg 04/25/20 21:15 04/27/20 10:21 Lasix Injection - IVPUSH 20 mg DAILY [facility] Administration Gabapentin 100 mg 04/27/20 14:00 Neurontin - PO TID [facility] Heparin Sodium (Porcine) 5,000 unit 04/26/20 22:00 04/27/20 06:09 Heparin - SQ 5,000 unit TID [facility] Administration Hydromorphone HCl 2 mg 04/27/20 11:20 04/27/20 11:47 Dilaudid Vial - IVPB 2 mg Q4H PRN Administration PAIN LEVEL 6-10 Potassium Chloride/Sodium Chloride 20 meq in 1,000 mls @ 83 mls/hr 04/26/20 08:30 04/27/20 10:21 1/2ns+20meq Kcl IV 83 mls/hr ASDIR [facility] Administration Magnesium Oxide 400 mg 04/26/20 22:00 04/27/20 10:21 Mag-Ox - PO 400 mg BID [facility] Administration Mirtazapine 7.5 mg 04/27/20 22:00 Remeron - PO HS [facility] Multivitamins/Minerals/Vitamin C 1 tab 04/27/20 11:00 04/27/20 11:16 Tab-A-Vit - PO 1 tab DAILY [facility] Administration Polyethylene Glycol 17 gm 04/27/20 11:15 04/27/20 11:46 Miralax (For Daily Use) - PO 17 grams DAILY [facility] Administration Rosuvastatin Calcium 10 mg 04/25/20 22:00 04/26/20 21:52 Crestor - PO 10 mg HS [facility] Administration Fluticasone/Salmeterol 1 puff 04/25/20 22:00 04/27/20 10:21 Advair 100mcg/50mcg - IH 1 puff BID [facility] Administration Tamsulosin HCl 0.4 mg 04/26/20 08:30 04/27/20 10:21 Flomax - PO 0.4 mg DAILY@0830 [facility] Administration Tiotropium [place] 2 puff 04/26/20 10:00 04/27/20 12:00 Spiriva Respimat IH 2 puff DAILY [facility] Administration Laboratory Tests 04/25/20 04/26/20 04/27/20 23:15 06:20 06:48 Magnesium 1.3 L Albumin 3.1 L Urine Protein Negative Urine Blood Negative LUISANA M-Kendrick Pending Free [place] LC, Quant Free Lambda LC, Quant Free [place]/Lambda Ratio 04/27/20 06:48 Magnesium Albumin Urine Protein Urine Blood LUISANA M-Kendrick Free [place] LC, Quant Pending Free Lambda LC, Quant Pending Free [place]/Lambda Ratio Pending Impression 1. mamie 2. hypercalcemia 3. hld 4. ILD 5. htn 6. hypokalemia 7. hypomagnesemia 8. DM 9. lactic acidosis Plan - calcium improving - replace mag - stop lasix - can cont fluids and decrease rate - repeat labs in am - oncology workup in progress
[2020-04-27] MEDS ORDERED: MAGNESIUM 2GM/50ML STERILE WATER IVPB IVPB ONE (12:50)
[2020-04-27] MEDS: GABAPENTIN 100 MG CAPSULE PO SCH ×2 (13:15→22:31)
--- NOTE | 2020-04-27 14:53 | CON.ID ---
Consult Referred by:: dr mohamud Reason for Consultation:: elevated lactic acid level - History of Present Illness Chief Complaint: back pain and weight loss History of Present Illness: 74 yo man admitted from home with weight loss of 20 pounds and back pain s/p fall at home, found on the ground by the niece in ED found to have elevated lactic acid of 4.3 and hypercalcemia with calcium of 14.7 imaging with multiple bony lesions continues to have back pain no fevers worup for malignancy in progress - History Source History Provided By: Medical Record Limitations to Obtaining History: Clinical Condition - Past Medical History Cardio/Vascular: Yes: HTN, Hyperlipdemia Pulmonary: Yes: Other (ILD) Renal/: Yes: BPH Endocrine: Yes: Diabetes Mellitus - Past Surgical History Additional Surgical History: AV repair - Alcohol/Substance Use Hx Alcohol Use: Yes (beer, quit 15 years ago) - Smoking History Smoking history: Former smoker Have you smoked in the past 12 months: No Aproximately how many cigarettes per day: 5 If you are a former smoker, when did you quit?: 2019 - Social History Usual Living Arrangement: Alone ADL: Independent History of Recent Travel: No Home Medications - Allergies Allergies/Adverse Reactions: Allergies Allergy/AdvReac Type Severity Reaction Status Date / Time No Known Allergies Allergy Verified 04/26/20 10:11 - Home Medications Home Medications: Ambulatory Orders Janumet 50-1,000 mg Tablet 1 tab PO BID 03/14/16 Albuterol Sulfate Inhaler - [Ventolin Hfa Inhaler -] 1 - 2 inh PO PRN PRN 04/25/20 Meloxicam 7.5 mg PO DAILY 04/25/20 Metoprolol Succinate 50 mg PO DAILY 04/25/20 Oxycodone HCl/Acetaminophen [Percocet 10-325 mg Tablet] 1 each PO PRN PRN 04/25/20 Rosuvastatin Calcium [Crestor] 10 mg PO DAILY 04/25/20 Salmeterol/Fluticasone [Advair 100Mcg/50Mcg -] 250 mg PO BID 04/25/20 Tamsulosin HCl [Flomax] 0.4 mg PO DAILY 04/25/20 Tiotropium [place] [Spiriva Respimat] 4 gm IH DAILY 04/25/20 Family Medical History Family History: Unable to Obtain Review of Systems - Review of Systems Constitutional: reports: Loss of Appetite, Weakness. denies: Chills, Diaphoresis, Fever Eyes: reports: No Symptoms HENT: reports: No Symptoms Neck: reports: No Symptoms Cardiovascular: reports: No Symptoms Respiratory: reports: No Symptoms Gastrointestinal: reports: No Symptoms. denies: Constipation, Diarrhea Genitourinary: reports: No Symptoms Musculoskeletal: reports: Back Pain Physical Exam Vital Signs: Vital Signs Temperature 99.0 F 04/27/20 10:30 Pulse Rate 96 H 04/27/20 10:30 Respiratory Rate 20 04/27/20 10:30 Blood Pressure 125/82 04/27/20 10:30 O2 Sat by Pulse Oximetry (%) 95 04/27/20 10:30 Constitutional: Yes: Thin HENT: Yes: Atraumatic, Normocephalic Neck: Yes: Supple Cardiovascular: Yes: Regular Rate and Rhythm Respiratory: Yes: Regular, CTA Bilaterally Gastrointestinal: Yes: Normal Bowel Sounds, Soft Extremities: Yes: WNL Edema: No Labs: CBC, BMP 04/27/20 06:48 04/27/20 06:48 Laboratory Tests 04/25/20 04/25/20 14:55 19:05 Lactic Acid 4.2 H* 1.5 cultures sent and pending Imaging - Results Cat Scan: Report Reviewed Problem List - Problems (1) Lactic acidosis Code(s): E87.2 - ACIDOSIS (2) Hypercalcemia Code(s): E83.52 - HYPERCALCEMIA Assessment/Plan lactic acidosis resolved with IVF hypercalcemia being treated malignancy w/o in progress f/u cultures no need for antibiotics at this time
[2020-04-27 16:28] VITALS: BMI 19.7
--- NOTE | 2020-04-27 16:42 | PN ---
Teaching Attending Note Name of Resident: Carmela Francis ATTENDING PHYSICIAN STATEMENT I saw and evaluated the patient. I reviewed the resident's note and discussed the case with the resident. I agree with the resident's findings and plan as documented. 74M HTN, DM, HLD, AA repair 2019 presents after his niece found him on the floor with inability to ambulate found to have multiple bone lesions in spine and ribs with some pelvic LAD. Course complicated by hyperCa which has since resolved s/p fluids, calcitonin and zometa. Paraproteins and serum tumor markers still pending; based on these findings we will narrow our options for biopsy. Pain is better controlled today.
--- NOTE | 2020-04-27 18:02 | CONSULT ---
Consult - text type - Consultation Consultation Note: NEUROLOGY CONSULTATION is greatly appreciated. Events reviewed and discussed with RN. Patient examined with his son and daughter at the bedside who aid with history and translation. This 74 yo RH man lives alone. PMH sig for DM, Asthma/COPD, HTN, Chol On: Janumet 50-1,000 BID; Albuterol; Meloxicam; Metoprolol 50; Oxycodone; Rosuvastatin; Advair; Tamsulosin; and Spiriva, Fell about 3 mos ago. Since then has had progressive pains involving the right ribs, right chest, Right hip (especially with weight baring) and the spine, diffusely. Since then has had difficulty walking but managed, independently, and even went outside until Thursday. LBP radiates into right leg with walking. Now admitted after a fall at home. Was on floor x 2 days until discovered by his nephew. On admission Ca++=14.7 mg%, WO=850 IU/L. CT of head (reviewed): Normal CT of C spine- multiple patchy lesions. Osteoporosis felt more likely than mets. However, multiple bony mets are found in ribs, pelvis. ARTUR: Thin, frail. NEURO: MS/speech Normal CN II-XII: Normal Motor: Normal strength. Absent AJ's. Toes downgoing. Coord: No FTN dystaxia Sensory: Decreased vibration both legs to the mid calf. IMP: Non-focal exam Sensory loss in both legs will cause decreased balance and falls. Etiology? Neuropathy more likely than myelopathy based on the clinical exam. A predominantly sensory neuropathy can be seen with multiple myeloma or as a paraneoplastic syndrome. Elevated CK on admission certainly a pressure phenomenon due to being on the floor for two days. Weakness (reversible) can also be seen due to hypercalcemia. Suggest: MRI of C-spine and LS spine (C-) Check B12 and repeat CK Mobilize OO Bed to chair. Thank you very much, Chas Fontaine MD
[2020-04-27] MEDS: MIRTAZAPINE 15 MG TABLET (FP) PO SCH (22:29)
[2020-04-27] MEDS: ROSUVASTATIN CA 10 MG TABLET (FP) PO SCH (22:31)
[2020-04-28] MEDS: sitaGLIPtin PHOSPHATE 50 MG TABLET PO SCH (06:13)
[2020-04-28] MEDS: HEPARIN NA (PORCINE) 5,000 UNITS/ML 1ML VIAL SQ SCH ×3 (06:13→21:08)
[2020-04-28] MEDS: GABAPENTIN 100 MG CAPSULE PO SCH ×3 (06:14→21:07)
[2020-04-28] MEDS: SODIUM CHLORIDE 0.45%/POT 20 MEQ/1,000 ML INFUS.BAG IV SCH ×2 (06:14→21:50)
[2020-04-28] MEDS: TAMSULOSIN HCL 0.4 MG CAP PO SCH (09:20)
[2020-04-28] MEDS: MULTIVITAMINS (DAILY MVI) TABLET (FP) PO SCH (09:44)
[2020-04-28] MEDS: FLUTICASONE/SALMETEROL 100 MCG/50 MCG DISKUS IH SCH ×2 (09:44→22:43)
[2020-04-28] MEDS: POLYETHYLENE GLYCOL 3350 119 GM BTL PO SCH (09:44)
[2020-04-28] MEDS: HYDROmorphone HCl 2 MG/ML VIAL IVPB PRN (09:45)
[2020-04-28] MEDS: TIOTROPIUM BROMIDE 2.5 MCG (SPIRIVA) RESPIMAT INHALER IH SCH (09:45)
[2020-04-28] MEDS: MAGNESIUM OXIDE 400 MG TABLET (FP) PO SCH ×2 (09:45→21:08)
--- NOTE | 2020-04-28 13:52 | PN ---
Progress Note, Physician Chief Complaint: Weakness Compression Fracture Metastatic Cancer History of Present Illness: Previous notes and events reviewed alert and awake NAD complains of right sided chest pain that radiates down right side when he sits up in bed/chair, pain is described as throbbing states having SOB on exertion - Current Medication List Current Medications: Active Medications Acetaminophen (Tylenol -) 650 mg PO Q4H PRN PRN Reason: PAIN LEVEL 1-5 Last Admin: 04/26/20 13:44 Dose: 650 mg Documented by: Albuterol Sulfate (Ventolin Hfa Inhaler -) 2 puff IH Q4H PRN PRN Reason: SHORT OF BREATH/WHEEZING Docusate Sodium (Colace -) 100 mg PO BID PRN PRN Reason: CONSTIPATION Last Admin: 04/26/20 10:10 Dose: 100 mg Documented by: Gabapentin (Neurontin -) 100 mg PO TID [facility] Last Admin: 04/28/20 06:14 Dose: 100 mg Documented by: Heparin Sodium (Porcine) (Heparin -) 5,000 unit SQ TID [facility] Last Admin: 04/28/20 06:13 Dose: 5,000 unit Documented by: Hydromorphone HCl (Dilaudid Vial -) 2 mg IVPB Q4H PRN PRN Reason: PAIN LEVEL 6-10 Last Admin: 04/28/20 09:45 Dose: 2 mg Documented by: Potassium Chloride/Sodium Chloride (1/2ns+20meq Kcl) 20 meq in 1,000 mls @ 75 mls/hr IV ASDIR [facility] Last Admin: 04/28/20 06:14 Dose: 75 mls/hr Documented by: Magnesium Oxide (Mag-Ox -) 400 mg PO BID [facility] Last Admin: 04/28/20 09:45 Dose: 400 mg Documented by: Mirtazapine (Remeron -) 7.5 mg PO [facility] Last Admin: 04/27/20 22:29 Dose: 7.5 mg Documented by: Multivitamins/Minerals/Vitamin C (Tab-A-Vit -) 1 tab PO DAILY [facility] Last Admin: 04/28/20 09:44 Dose: 1 tab Documented by: Polyethylene Glycol (Miralax (For Daily Use) -) 17 gm PO DAILY [facility] Last Admin: 04/28/20 09:44 Dose: 17 grams Documented by: Rosuvastatin Calcium (Crestor -) 10 mg PO [facility] Last Admin: 04/27/20 22:31 Dose: 10 mg Documented by: Fluticasone/Salmeterol (Advair 100mcg/50mcg -) 1 puff IH BID [facility] Last Admin: 04/28/20 09:44 Dose: 1 puff Documented by: Sitagliptin Phosphate (Januvia -) 50 mg PO DAILY@0700 [facility] Last Admin: 04/28/20 06:13 Dose: 50 mg Documented by: Tamsulosin HCl (Flomax -) 0.4 mg PO DAILY@0830 [facility] Last Admin: 04/28/20 09:20 Dose: 0.4 mg Documented by: Tiotropium [place] (Spiriva Respimat) 2 puff IH DAILY [facility] Last Admin: 04/28/20 09:45 Dose: 2 puff Documented by: - Objective Vital Signs: Vital Signs Temperature 98.1 F 04/28/20 04:00 Pulse Rate 89 04/28/20 04:00 Respiratory Rate 20 04/28/20 04:00 Blood Pressure 127/63 04/28/20 04:00 O2 Sat by Pulse Oximetry (%) 92 L 04/28/20 04:00 Constitutional: Yes: No Distress, Calm Eyes: Yes: Conjunctiva Clear HENT: Yes: Atraumatic Cardiovascular: Yes: Regular Rate and Rhythm Respiratory: Yes: Regular, Diminished, On Nasal O2 Gastrointestinal: Yes: Normal Bowel Sounds, Soft Genitourinary: Yes: Incontinence Musculoskeletal: Yes: Muscle Weakness Extremities: Yes: WNL Edema: No Neurological: Yes: Alert, Oriented Psychiatric: Yes: Alert, Oriented Labs: CBC, BMP 04/27/20 06:48 04/27/20 06:48 INR, PTT INR 1.24 (0.83-1.09) H 04/26/20 04:45 Problem List - Problems (1) JEAN (acute kidney injury) Assessment/Plan: Resolved BUN/Cr 16.6/0.9 Nephrology on board monitor for uptrend BUN/Cr Code(s): N17.9 - ACUTE KIDNEY FAILURE, UNSPECIFIED (2) Compression fracture Assessment/Plan: CT Scan Cspine shows Multilevel degenerative disc changes are noted. Mild multilevel patchy osseous low-attenuation is seen which could be on the basis of osteoporosis. Neoplastic disease is less likely. Comparison with prior CT/MRI exams is suggested if available from a different facility. CTAP shows An expansile approximately 5 x 4 cm osteolytic lesion is seen involving the right iliac bone ventrally with an extraosseous soft tissue component, smaller less prominent nonexpansile osteolytic lesions are seen within the lumbosacral spine and bilateral iliac bones, mild pathologic L1 vertebral body compression fracture with minimal bony retropulsion, there are probable small osteolytic lesions within the femoral heads and necks bilaterally. Several enlarged right internal iliac lymph nodes are noted within the lower pelvis the most prominent measuring 1.7 cm in diameter, there is mild fusiform aneurysmal dilatation of the suprarenal aorta with a 3.4 cm diameter, incidental left renal cortical cysts, moderate prostate enlargement, mild diff use urinary bladder wall thickening is noted probably on the basis of chronic outlet obstruction Chest CT scan shows in comparison to a previous CT exam of 07/12/2013 interval development of multilevel thoracic vertebral body osteolytic lesions are noted, minimal T5 and mild T6 pathologic vertebral body compression fractures are noted, there is mild bony retropulsion at the T6 level, prominently increased fibrosis within the upper and lower lung mondragon bilaterally, left more than right, interval development of several mildly enlarged subcarinal mediastinal lymph nodes is noted, development of several multilevel bilateral rib osteolytic lesions are seen suggestive of neoplastic disease, status post interval median sternotomy, Allowing for partially obscuring metallic artifact there are pos sible small osteolytic lesions within the sternal body, as on prior exam there is fusiform aneurysmal dilatation of the aortic arch and descending aorta with a 3.7 cm diameter Neurosurgery consult Acetaminophen 650 mg po Q4H PRN Dilaudid 2 mg po Q4H PRN Gabapentin 100 mg po TID Pain management consult Code(s): VOP6697 - (3) Frequent falls Assessment/Plan: Fall precaution PT Code(s): R29.6 - REPEATED FALLS (4) Hypercalcemia Assessment/Plan: Ca 9.7 Nephrology pn board [facility] Ca level Code(s): E83.52 - HYPERCALCEMIA (5) Lactic acidosis Assessment/Plan: LA 4.2~1.5 Resolved ID o board BC neg Code(s): E87.2 - ACIDOSIS (6) Metastatic cancer Assessment/Plan: Chest CT scan shows in comparison to a previous CT exam of 07/12/2013 interval development of multilevel thoracic vertebral body osteolytic lesions are noted, minimal T5 and mild T6 pathologic vertebral body compression fractures are noted, there is mild bony retropulsion at the T6 level, prominently increased fibrosis within the upper and lower lung mondragon bilaterally, left more than right, interval development of several mildly enlarged subcarinal mediastinal lymph nodes is noted, development of several multilevel bilateral rib osteolytic lesions are seen suggestive of neoplastic disease, status post interval median sternotomy, Allowing for partially obscuring metallic artifact there are possible small osteolytic lesions within the sternal body, as on prior exam there is fusiform aneurysmal dilatation of the aortic arch and descending aorta with a 3.7 cm diameter Oncology on board Immunofixation/SPEP pending M-Kendrick not observed Code(s): C79.9 - SECONDARY MALIGNANT NEOPLASM OF UNSPECIFIED SITE Qualifiers: Area of secondary neoplastic involvement: bone Qualified Code(s): C79.51 - Secondary malignant neoplasm of bone (7) Aortic aneurysm Assessment/Plan: CTAP shows there is mild fusiform aneurysmal dilatation of the suprarenal aorta with a 3.4 cm diameter Code(s): I71.9 - AORTIC ANEURYSM OF UNSPECIFIED SITE, WITHOUT RUPTURE (8) Cachexia Code(s): R64 - CACHEXIA Assessment/Plan see problem list
[2020-04-28 18:07] LABS: FREE KAPPA,SERUM 21.2 mg/L (3.3-19.4)
[2020-04-28] MEDS: ROSUVASTATIN CA 10 MG TABLET (FP) PO SCH (21:06)
[2020-04-28] MEDS: MIRTAZAPINE 15 MG TABLET (FP) PO SCH (21:07)
[2020-04-29] MEDS: GABAPENTIN 100 MG CAPSULE PO SCH ×3 (06:33→21:35)
[2020-04-29] MEDS: HEPARIN NA (PORCINE) 5,000 UNITS/ML 1ML VIAL SQ SCH ×3 (06:33→21:34)
[2020-04-29] MEDS: sitaGLIPtin PHOSPHATE 50 MG TABLET PO SCH (06:33)
[2020-04-29] MEDS: FLUTICASONE/SALMETEROL 100 MCG/50 MCG DISKUS IH SCH ×2 (09:02→21:35)
[2020-04-29] MEDS: TIOTROPIUM BROMIDE 2.5 MCG (SPIRIVA) RESPIMAT INHALER IH SCH (09:03)
[2020-04-29] MEDS: MAGNESIUM OXIDE 400 MG TABLET (FP) PO SCH ×2 (09:09→21:34)
[2020-04-29] MEDS: MULTIVITAMINS (DAILY MVI) TABLET (FP) PO SCH (09:10)
[2020-04-29] MEDS: TAMSULOSIN HCL 0.4 MG CAP PO SCH (09:10)
[2020-04-29] MEDS: HYDROmorphone HCl 2 MG/ML VIAL IVPB PRN ×3 (09:18→21:34)
--- NOTE | 2020-04-29 12:27 | PN ---
Progress Note, Physician Chief Complaint: Weakness Compression Fracture Metastatic Cancer History of Present Illness: Previous notes and events reviewed alert and awake NAD states having chest pain this morning, received morning medication and pain has improved-VS show normal BP and no tachycardia states having SOB on exertion noted with elevated PSA 120.00 PLT 115 - Current Medication List Current Medications: Active Medications Acetaminophen (Tylenol -) 650 mg PO Q4H PRN PRN Reason: PAIN LEVEL 1-5 Last Admin: 04/26/20 13:44 Dose: 650 mg Documented by: Albuterol Sulfate (Ventolin Hfa Inhaler -) 2 puff IH Q4H PRN PRN Reason: SHORT OF BREATH/WHEEZING Docusate Sodium (Colace -) 100 mg PO BID PRN PRN Reason: CONSTIPATION Last Admin: 04/26/20 10:10 Dose: 100 mg Documented by: Gabapentin (Neurontin -) 100 mg PO TID [facility] Last Admin: 04/29/20 06:33 Dose: 100 mg Documented by: Heparin Sodium (Porcine) (Heparin -) 5,000 unit SQ TID [facility] Last Admin: 04/29/20 06:33 Dose: 5,000 unit Documented by: Hydromorphone HCl (Dilaudid Vial -) 2 mg IVPB Q4H PRN PRN Reason: PAIN LEVEL 6-10 Last Admin: 04/29/20 09:18 Dose: 2 mg Documented by: Potassium Chloride/Sodium Chloride (1/2ns+20meq Kcl) 20 meq in 1,000 mls @ 75 mls/hr IV ASDIR [facility] Last Admin: 04/28/20 21:50 Dose: 75 mls/hr Documented by: Magnesium Oxide (Mag-Ox -) 400 mg PO BID [facility] Last Admin: 04/29/20 09:09 Dose: 400 mg Documented by: Mirtazapine (Remeron -) 7.5 mg PO [facility] Last Admin: 04/28/20 21:07 Dose: 7.5 mg Documented by: Multivitamins/Minerals/Vitamin C (Tab-A-Vit -) 1 tab PO DAILY [facility] Last Admin: 04/29/20 09:10 Dose: 1 tab Documented by: Polyethylene Glycol (Miralax (For Daily Use) -) 17 gm PO DAILY [facility] Last Admin: 04/28/20 09:44 Dose: 17 grams Documented by: Rosuvastatin Calcium (Crestor -) 10 mg PO [facility] Last Admin: 04/28/20 21:06 Dose: 10 mg Documented by: Fluticasone/Salmeterol (Advair 100mcg/50mcg -) 1 puff IH BID [facility] Last Admin: 04/29/20 09:02 Dose: 1 puff Documented by: Sitagliptin Phosphate (Januvia -) 50 mg PO DAILY@0700 [facility] Last Admin: 04/29/20 06:33 Dose: 50 mg Documented by: Tamsulosin HCl (Flomax -) 0.4 mg PO DAILY@0830 [facility] Last Admin: 04/29/20 09:10 Dose: 0.4 mg Documented by: Tiotropium [place] (Spiriva Respimat) 2 puff IH DAILY [facility] Last Admin: 04/29/20 09:03 Dose: 2 puff Documented by: - Objective Vital Signs: Vital Signs Temperature 98.2 F 04/29/20 05:20 Pulse Rate 92 H 04/29/20 09:00 Respiratory Rate 20 04/29/20 09:00 Blood Pressure 130/68 04/29/20 09:00 O2 Sat by Pulse Oximetry (%) 95 04/29/20 09:00 Constitutional: Yes: No Distress, Calm Eyes: Yes: Conjunctiva Clear HENT: Yes: Atraumatic Cardiovascular: Yes: Regular Rate and Rhythm Respiratory: Yes: Regular, Diminished, On Nasal O2 Gastrointestinal: Yes: Normal Bowel Sounds, Soft Genitourinary: Yes: Incontinence Musculoskeletal: Yes: Muscle Pain (R side of chest), Muscle Weakness Extremities: Yes: WNL Edema: No Neurological: Yes: Alert Psychiatric: Yes: Alert Labs: CBC, BMP 04/27/20 06:48 04/27/20 06:48 INR, PTT INR 1.24 (0.83-1.09) H 04/26/20 04:45 Microbiology 04/27/20 11:44 Blood - Peripheral Venous Blood Culture - Preliminary NO GROWTH OBTAINED AFTER 48 HOURS, INCUBATION TO CO NTINUE FOR 3 DAYS. 04/27/20 11:40 Blood - Peripheral Venous Blood Culture - Preliminary NO GROWTH OBTAINED AFTER 48 HOURS, INCUBATION TO CON TINUE FOR 3 DAYS. 04/27/20 06:00 Nose MRSA Screen - Final NO MRSA ISOLATED 04/25/20 23:15 Urine - Urine Clean Catch Urine Culture - Final NO GROWTH OBTAINED Problem List - Problems (1) JEAN (acute kidney injury) Assessment/Plan: Resolved BUN/Cr 16.6/0.9 Nephrology on board monitor for uptrend BUN/Cr Code(s): N17.9 - ACUTE KIDNEY FAILURE, UNSPECIFIED (2) Compression fracture Assessment/Plan: CT Scan Cspine shows Multilevel degenerative disc changes, mild multilevel patchy osseous low-attenuation is seen which could be on the basis of osteoporosis, neoplastic disease is less likely CTAP shows expansile approximately 5 x 4 cm osteolytic lesion is seen involving the right iliac bone ventrally with an extraosseous soft tissue component, smaller less prominent nonexpansile osteolytic lesions are seen within the lumbosacral spine and bilateral iliac bones, mild pathologic L1 vertebral body compression fracture with minimal bony retropulsion, there are probable small osteolytic lesions within the femoral heads and necks bilaterally, several enlarged right internal iliac lymph nodes are noted within the lower pelvis the most prominent measuring 1.7 cm in diameter, there is mild fusiform aneurysmal dilatation of the suprarenal aorta with a 3.4 cm diameter, incidental left renal cortical cysts, moderate prostate enlargement, mild diffuse urinary bladder wall thickening is noted probably on the basis of chronic outlet obstruction Chest CT scan shows in comparison to a previous CT exam of 07/12/2013 interval development of multilevel thoracic vertebral body osteolytic lesions are noted, minimal T5 and mild T6 pathologic vertebral body compression fractures are noted, there is mild bony retropulsion at the T6 level, prominently increased fi brosis within the upper and lower lung mondragon bilaterally, left more than right, interval development of several mildly enlarged subcarinal mediastinal lymph nodes is noted, development of several multilevel bilateral rib osteolytic lesions are seen suggestive of neoplastic disease, status post interval median sternotomy, Allowing for partially obscuring metallic artifact there are possible small osteolytic lesions within the sternal body, as on prior exam there is fusiform aneurysmal dilatation of the aortic arch and descending aorta with a 3.7 cm diameter Neurosurgery consult Acetaminophen 650 mg po Q4H PRN Dilaudid 2 mg po Q4H PRN Gabapentin 100 mg po TID Pain management consult Code(s): KQS0517 - (3) Frequent falls Assessment/Plan: Safety precaution Head CT Scan shows a small curvilinear hypodense focus is noted within the left basal ganglia possibly representing a chronic infarct versus a nonspecific mildly dilated vessel, correlation with nonemergent contrast enhanced MRI or CT is suggested, several small bilateral frontal subcortical white matter hypodense foci are seen which may represent chronic infarct versus chronic microvascular ischemic changes, mild periventricular chronic microvascular ischemic changes are noted, there is mild deformity of the medial wall of the right orbit consistent with a fracture which is probably chronic PT Code(s): R29.6 - REPEATED FALLS (4) Hypercalcemia Assessment/Plan: Ca 9.7 on 04/28-CMP for today pending Nephrology pn board continue to moitor Ca level Code(s): E83.52 - HYPERCALCEMIA (5) Lactic acidosis Assessment/Plan: LA 4.2~1.5 Resolved ID on board BC neg, UC neg, MRSA neg Code(s): E87.2 - ACIDOSIS (6) Metastatic cancer Assessment/Plan: Chest CT scan shows in comparison to a previous CT exam of 07/12/2013 interval development of multilevel thoracic vertebral body osteolytic lesions are noted, minimal T5 and mild T6 pathologic vertebral body compression fractures are noted, there is mild bony retropulsion at the T6 level, prominently increased fibrosis within the upper and lower lung mondragon bilaterally, left more than right, interval development of several mildly enlarged subcarinal mediastinal lymph nodes is noted, development of several multilevel bilateral rib osteolytic lesions are seen suggestive of neoplastic disease, status post interval median sternotomy, Allowing for partially obscuring metallic artifact there are possible small osteolytic lesions within the sternal body, as on prior exam there is fusiform aneurysmal dilatation of the aortic arch and descending aorta with a 3.7 cm diameter CTAP shows expansile approximately 5 x 4 cm osteolytic lesion is seen involving the right iliac bone ventrally with an extraosseous soft tissue component, smaller less prominent nonexpansile osteolytic lesions are seen within the lumbosacral spine and bilateral iliac bones, mild pathologic L1 vertebral body compression fracture with minimal bony retropulsion, there are probable small osteolytic lesions within the femoral heads and necks bilaterally, several enlarged right internal iliac lymph nodes are noted within the lower pelvis the most prominent measuring 1.7 cm in diameter, there is mild fusiform aneurysmal dilatation of the suprarenal aorta with a 3.4 cm diameter, incidental left renal cortical cysts, moderate prostate enlargement, mild diffuse urinary bladder wall thickening is noted probably on the basis of chronic outlet obstruction Oncology on board Free [place] LC 21.2 M-Kendrick not observed PSA 120.00-Urology consult placed Code(s): C79.9 - SECONDARY MALIGNANT NEOPLASM OF UNSPECIFIED SITE Qualifiers: Area of secondary neoplastic involvement: bone Qualified Code(s): C79.51 - Secondary malignant neoplasm of bone (7) Aortic aneurysm Assessment/Plan: CTAP shows there is mild fusiform aneurysmal dilatation of the suprarenal aorta with a 3.4 cm diameter monitor for now Code(s): I71.9 - AORTIC ANEURYSM OF UNSPECIFIED SITE, WITHOUT RUPTURE (8) Cachexia Assessment/Plan: Turn q2h prevent skin breakdown Mirtazapine HS Multivitamin Ensure, Magic Cup Code(s): R64 - CACHEXIA (9) Thrombocytopenia Assessment/Plan: PLT 115 monitor CBC daily for PLT trend Heme/Onc already on pt case Code(s): D69.6 - THROMBOCYTOPENIA, UNSPECIFIED Assessment/Plan see problem list DVT PPX
[2020-04-29 13:09] LABS: HEMATOCRIT 35.5 % (35.4-49); HEMOGLOBIN 12.3 GM/dL (11.7-16.9); MCH 30.8 pg (25.7-33.7); MCHC 34.8 g/dl (32.0-35.9); MEAN CELL VOLUME 88.6 fl (80-96); MEAN PLT VOLUME 8.7 fl (7.5-11.1); PLATELET COUNT 115 K/MM3 (134-434); RBC 4.01 M/mm3 (4.00-5.60); WHITE BLOOD COUNT 7.8 K/mm3 (4.0-10.0)
[2020-04-29] MEDS: POLYETHYLENE GLYCOL 3350 119 GM BTL PO SCH (13:19)
[2020-04-29] MEDS: SODIUM CHLORIDE 0.45%/POT 20 MEQ/1,000 ML INFUS.BAG IV SCH (13:20)
[2020-04-29 13:43] LABS: ALBUMIN 3.2 g/dl (3.4-5.0); CREATININE 0.8 mg/dL (0.55-1.3); POTASSIUM 4.5 mmol/L (3.5-5.1); TOT PROT 6.8 g/dl (6.4-8.2)
[2020-04-29] MEDS: ROSUVASTATIN CA 10 MG TABLET (FP) PO SCH (21:35)
[2020-04-29] MEDS: MIRTAZAPINE 15 MG TABLET (FP) PO SCH (21:35)
[2020-04-30] MEDS: SODIUM CHLORIDE 0.45%/POT 20 MEQ/1,000 ML INFUS.BAG IV SCH (03:28)
[2020-04-30] MEDS: GABAPENTIN 100 MG CAPSULE PO SCH ×3 (06:10→22:05)
[2020-04-30] MEDS: sitaGLIPtin PHOSPHATE 50 MG TABLET PO SCH (06:10)
[2020-04-30] MEDS: HYDROmorphone HCl 2 MG/ML VIAL IVPB PRN (06:11)
--- NOTE | 2020-04-30 08:42 | PN ---
Physical Exam: SUBJECTIVE: Patient seen and examined this this AM. No new complaints, no acute overnight events. OBJECTIVE: Vital Signs Period Temp Pulse Resp BP Sys/Navarrete Pulse Ox Last 24 Hr 97.5 F-98.7 F 92-102 20-22 123-153/62-82 91-98 GENERAL: A&Ox3, NAD HEAD: NCAT EYES: PERRL, EOMI ENT: Moist mucous membranes NECK: Supple, No JVD LUNGS: Diminished breath sounds at the bases, No Wheezes HEART: Regular rate and rhythm, normal S1 and S2 without murmur ABDOMEN: Soft, nontender, not distended, + bowel sounds, no guarding, no rebound MUSCULOSKELETAL: tender to light palpation throughout EXTREMITIES: Digital clubbing in UE. No peripheral edema. NEUROLOGICAL: Cranial nerves II-XII intact. 4/5 muscle strength throughout, Otherwise no FND SKIN: Warm, dry Laboratory Last Values WBC 7.8 K/mm3 (4.0-10.0) 04/29/20 12:32 RBC 4.01 M/mm3 (4.00-5.60) 04/29/20 12:32 Hgb 12.3 GM/dL (11.7-16.9) 04/29/20 12:32 Hct 35.5 % (35.4-49) 04/29/20 12:32 MCV 88.6 fl (80-96) 04/29/20 12:32 MCH 30.8 pg (25.7-33.7) 04/29/20 12:32 MCHC 34.8 g/dl (32.0-35.9) 04/29/20 12:32 RDW 14.0 % (11.9-15.9) 04/29/20 12:32 Plt Count 115 K/MM3 (134-434) L 04/29/20 12:32 MPV 8.7 fl (7.5-11.1) 04/29/20 12:32 Absolute Neuts (auto) 5.2 K/mm3 (1.5-8.0) 04/27/20 06:48 Total Counted 100 04/25/20 14:55 Neutrophils % 68.2 % (42.8-82.8) 04/27/20 06:48 Neutrophils % (Manual) 75.0 % (42.8-82.8) 04/25/20 14:55 Lymphocytes % 20.3 % (8-40) 04/27/20 06:48 Lymphocytes % (Manual) 18.0 % (8-40) 04/25/20 14:55 Monocytes % 7.2 % (3.8-10.2) 04/27/20 06:48 Monocytes % (Manual) 3 % (3.8-10.2) L 04/25/20 14:55 Eosinophils % 3.9 % (0-4.5) D 04/27/20 06:48 Basophils % 0.4 % (0-2.0) 04/27/20 06:48 Myelocytes % (Man) 4 % (0-2) H 04/25/20 14:55 Nucleated RBC % 0 % (0-0) 04/27/20 06:48 PT with INR 14.70 SEC (9.7-13.0) H 04/26/20 04:45 INR 1.24 (0.83-1.09) H 04/26/20 04:45 Sodium 132 mmol/L (136-145) L 04/29/20 12:32 Potassium 4.5 mmol/L (3.5-5.1) 04/29/20 12:32 Chloride 101 mmol/L (98-107) 04/29/20 12:32 Carbon Dioxide 23 mmol/L (21-32) 04/29/20 12:32 Anion Gap 8 MMOL/L (8-16) 04/29/20 12:32 BUN 16.0 mg/dL (7-18) 04/29/20 12:32 Creatinine 0.8 mg/dL (0.55-1.3) 04/29/20 12:32 Est GFR (CKD-EPI)AfAm 101.99 04/29/20 12:32 Est GFR (CKD-EPI)NonAf 88.00 04/29/20 12:32 POC Glucometer 110 UNITS (80-120) 04/30/20 06:20 Random Glucose 149 mg/dL (74-106) H 04/29/20 12:32 Hemoglobin A1c % 6.9 % (4.2-6.3) H 04/27/20 11:40 Lactic Acid 1.5 mmol/L (0.4-2.0) 04/25/20 19:05 Calcium 8.0 mg/dL (8.5-10.1) L 04/29/20 12:32 Phosphorus 2.6 mg/dL (2.5-4.9) 04/26/20 04:45 Magnesium 1.3 mg/dL (1.8-2.4) L 04/27/20 06:48 Total Bilirubin 1.0 mg/dL (0.2-1) 04/29/20 12:32 AST 29 U/L (15-37) 04/29/20 12:32 ALT 17 U/L (13-61) 04/29/20 12:32 Alkaline Phosphatase 112 U/L (45-117) 04/29/20 12:32 Creatine Kinase 536 U/L (26-308) H 04/25/20 14:55 Creatine Kinase Index 1.3 % (0.0-5.0) 04/25/20 14:55 CK-MB (CK-2) 7.4 ng/mL (0.5-3.6) H 04/25/20 14:55 Troponin I < 0.02 ng/ml (0.00-0.05) 04/25/20 14:55 B-Natriuretic Peptide 436.3 pg/ml (5-125) H 04/25/20 14:55 Total Protein 6.8 g/dl (6.4-8.2) 04/29/20 12:32 Total Protein (PEP) 6.1 g/dL (6.0-8.5) 04/26/20 06:20 Albumin 3.2 g/dl (3.4-5.0) L 04/29/20 12:32 Albumin (PEP) 3.3 gm/dl (2.9-4.4) 04/26/20 06:20 Globulin 2.8 g/dL (2.2-3.9) 04/26/20 06:20 Albumin/Globulin Ratio 1.2 (0.7-1.7) 04/26/20 06:20 Beta Globulins 0.8 gm/dL (0.7-1.3) 04/26/20 06:20 Prostate Specific Ag 120.00 ng/ml (0.0-4.0) H 04/27/20 16:10 25-OH Vitamin D Total 17.2 ng/mL (30-100) L 04/26/20 07:42 TSH 1.98 uIU/ml (0.358-3.74) 04/26/20 04:45 PTH Intact 11 pg/mL (15-65) L 04/26/20 06:20 Urine Color Yellow 04/25/20 23:15 Urine Appearance Clear 04/25/20 23:15 Urine pH 6.0 (5.0-8.0) 04/25/20 23:15 Ur Specific [place] 1.012 (1.010-1.035) 04/25/20 23:15 Urine Protein Negative (NEGATIVE) 04/25/20 23:15 Urine Glucose (UA) Negative (NEGATIVE) 04/25/20 23:15 Urine Ketones Negative (NEGATIVE) 04/25/20 23:15 Urine Blood Negative (NEGATIVE) 04/25/20 23:15 Urine Nitrite Negative (NEGATIVE) 04/25/20 23:15 Urine Bilirubin Negative (NEGATIVE) 04/25/20 23:15 Urine Urobilinogen 0.2 mg/dL (0.2-1.0) 04/25/20 23:15 Ur Leukocyte Esterase Negative (NEGATIVE) 04/25/20 23:15 LUISANA M-Kendrick Not observed g/dL (Not Observed) 04/26/20 06:20 Free Wanda LC, Quant 21.2 mg/L (3.3-19.4) H 04/27/20 06:48 Free Lambda LC, Quant 17.8 mg/L (5.7-26.3) 04/27/20 06:48 Free Wanda/Lambda Ratio 1.19 (0.26-1.65) 04/27/20 06:48 COVID-19 (ANASTACIA) Not detected (Not Detected) 04/25/20 16:30 Microbiology 04/27/20 11:44 Blood - Peripheral Venous Blood Culture - Preliminary NO GROWTH OBTAINED AFTER 48 HOURS, INCUBATION TO CONTINUE FOR 3 DAYS. 04/27/20 11:40 Blood - Peripheral Venous Blood Culture - Preliminary NO GROWTH OBTAINED AFTER 48 HOURS, INCUBATION TO CONTINUE FOR 3 DAYS. 04/27/20 06:00 Nose MRSA Screen - Final NO MRSA ISOLATED 04/25/20 23:15 Urine - Urine Clean Catch Urine Culture - Final NO GROWTH OBTAINED Active Medications Acetaminophen (Tylenol -) 650 mg PO Q4H PRN PRN Reason: PAIN LEVEL 1-5 Last Admin: 04/26/20 13:44 Dose: 650 mg Documented by: Albuterol Sulfate (Ventolin Hfa Inhaler -) 2 puff IH Q4H PRN PRN Reason: SHORT OF BREATH/WHEEZING Docusate Sodium (Colace -) 100 mg PO BID PRN PRN Reason: CONSTIPATION Last Admin: 04/26/20 10:10 Dose: 100 mg Documented by: Gabapentin (Neurontin -) 100 mg PO TID [facility] Last Admin: 04/30/20 06:10 Dose: 100 mg Documented by: Heparin Sodium (Porcine) (Heparin -) 5,000 unit SQ BID [facility] Last Admin: 04/29/20 21:34 Dose: 5,000 unit Documented by: Hydromorphone HCl (Dilaudid Vial -) 2 mg IVPB Q4H PRN PRN Reason: PAIN LEVEL 6-10 Last Admin: 04/30/20 06:11 Dose: 2 mg Documented by: Potassium Chloride/Sodium Chloride (1/2ns+20meq Kcl) 20 meq in 1,000 mls @ 75 mls/hr IV ASDIR [facility] Last Admin: 04/30/20 03:28 Dose: 75 mls/hr Documented by: Magnesium Oxide (Mag-Ox -) 400 mg PO BID [facility] Last Admin: 04/29/20 21:34 Dose: 400 mg Documented by: Mirtazapine (Remeron -) 7.5 mg PO [facility] Last Admin: 04/29/20 21:35 Dose: 7.5 mg Documented by: Multivitamins/Minerals/Vitamin C (Tab-A-Vit -) 1 tab PO DAILY [facility] Last Admin: 04/29/20 09:10 Dose: 1 tab Documented by: Polyethylene Glycol (Miralax (For Daily Use) -) 17 gm PO DAILY [facility] Last Admin: 04/29/20 13:19 Dose: 17 grams Documented by: Rosuvastatin Calcium (Crestor -) 10 mg PO [facility] Last Admin: 04/29/20 21:35 Dose: 10 mg Documented by: Fluticasone/Salmeterol (Advair 100mcg/50mcg -) 1 puff IH BID [facility] Last Admin: 04/29/20 21:35 Dose: 1 puff Documented by: Sitagliptin Phosphate (Januvia -) 50 mg PO DAILY@0700 [facility] Last Admin: 04/30/20 06:10 Dose: 50 mg Documented by: Tamsulosin HCl (Flomax -) 0.4 mg PO DAILY@0830 [facility] Last Admin: 04/29/20 09:10 Dose: 0.4 mg Documented by: Tiotropium [employer] (Spiriva Respimat) 2 puff IH DAILY [facility] Last Admin: 04/29/20 09:03 Dose: 2 puff Documented by: ASSESSMENT/PLAN: 74 y/o M PMHx HTN, DM, HLD, ILD, BPH, AAA (s/p repair) presents with weakness. Recently experienced decreased appetite, unintentional 20lb weight loss and diffuse pain. Initial Labwork reveals Calcium 14.7 (treated), JEAN. Initial imaging was suggestive of mestastic neoplasm (Multiple osteolytic lesions, T5/T6/L1 Compresion fx, Pelvic Lymphadenopathy). Patient was admitted and Oncology was consulted for occult malignancy. Follow up lab work reveals elevated PSA, CK, free Wanda light chain. #Osteolytic lesions + LAD -Concering for Prostate Ca with Mets; Less likely MM vs other occult malignancy -PSA 120 -Analgesia -will need bone lesion biopsy for confirmation -Follow MRI C and LS Spine -Will need to obtain outpatient cancer screening record from PCP -Monitor PLT as currently downtrending -Appreciate ID, Nephro, Neuro evaluation; Urology and Neurosx evals pending Visit type - Emergency Visit Emergency Visit: Yes ED Registration Date: 04/25/20 Care time: The patient presented to the Emergency Department on the above date and was hospitalized for further evaluation of their emergent condition. - New Patient This patient is new to me today: Yes Date on this admission: 05/01/20 - Critical Care Critical Care patient: No - Discharge Referral Referred to [facility] Med P.C.: No - Medication Review Med list reviewed for High Risk Meds patients 65 and older: Yes ATTENDING PHYSICIAN STATEMENT I saw and evaluated the patient. I reviewed the resident's note and discussed the case with the resident. I agree with the resident's findings and plan as documented. SUBJECTIVE: OBJECTIVE: ASSESSMENT AND PLAN:
[2020-04-30] MEDS: TAMSULOSIN HCL 0.4 MG CAP PO SCH (08:44)
[2020-04-30] MEDS ORDERED: PT OWN MED DRAWER 7, Y5N ONE (08:59)
[2020-04-30] MEDS: MULTIVITAMINS (DAILY MVI) TABLET (FP) PO SCH (09:32)
[2020-04-30] MEDS: DOCUSATE SODIUM 100 MG CAPSULE (FP) PO PRN (09:32)
[2020-04-30] MEDS: FLUTICASONE/SALMETEROL 100 MCG/50 MCG DISKUS IH SCH ×2 (09:33→22:03)
[2020-04-30] MEDS: HEPARIN NA (PORCINE) 5,000 UNITS/ML 1ML VIAL SQ SCH ×2 (09:33→22:04)
[2020-04-30] MEDS: MAGNESIUM OXIDE 400 MG TABLET (FP) PO SCH ×2 (09:33→22:04)
[2020-04-30] MEDS: POLYETHYLENE GLYCOL 3350 119 GM BTL PO SCH (09:33)
[2020-04-30] MEDS: TIOTROPIUM BROMIDE 2.5 MCG (SPIRIVA) RESPIMAT INHALER IH SCH (09:34)
[2020-04-30 09:59] LABS: HEMATOCRIT 35.2 % (35.4-49); MCH 30.1 pg (25.7-33.7); MCHC 34.1 g/dl (32.0-35.9); MEAN CELL VOLUME 88.2 fl (80-96); MEAN PLT VOLUME 8.5 fl (7.5-11.1); PLATELET COUNT 139 K/MM3 (134-434); RBC 3.99 M/mm3 (4.00-5.60); RDW 14.1 % (11.9-15.9); WHITE BLOOD COUNT 7.9 K/mm3 (4.0-10.0)
[2020-04-30 10:07] LABS: ALBUMIN 3.1 g/dl (3.4-5.0); BILIRUBIN,TOTAL 1.2 mg/dL (0.2-1); BLOOD UREA NITROGEN 15.9 mg/dL (7-18); CALCIUM 7.4 mg/dL (8.5-10.1); CREATININE 0.8 mg/dL (0.55-1.3); POTASSIUM 4.9 mmol/L (3.5-5.1); TOT PROT 6.7 g/dl (6.4-8.2)
--- NOTE | 2020-04-30 10:36 | PN ---
Progress Note, Physician Chief Complaint: Weakness Fall Weight loss SOB Multiple Vertebral fractures History of Present Illness: 74 YO man with Mhx of HTN, DM, HLD, ILD, BPH and Aortic Aneurysm s/p repair 1 year ago, presented to ED after his niece found him on floor and unable to get up. Pt reported that he started having pain and weakness all over his body over the last month, associated with decreased appetite and wt loss (reported 20lbs loss). His symptoms became worse over the last 5 days, and last night he was feeling so weak, he sat on floor and couldn't get up till his niece came to check on him and found him on floor. He denies LOC, dizziness, change in urine or bowel habits. No cough or fever reported. Upon evaluation in the ER, pt was noted to have: CT C Spine 04/25/20: Multilevel degenerative disc changes are noted. Mild multilevel patchy osseous low-attenuation is seen which could be on the basis of osteoporosis. Neoplastic disease is less likely. Comparison with prior CT/MRI exams is suggested if available from a different facility. CT head: A small curvilinear hypodense focus is noted within the left basal ganglia possibly representing a chronic infarct versus a nonspecific mildly dilated vessel. Correlation with nonemergent contrast enhanced MRI or CT is suggested. Several small bilateral frontal subcortical white matter hypodense foci are seen which may represent chronic infarct versus chronic microvascular ischemic c hanges. Mild periventricular chronic microvascular ischemic changes are noted. There is mild deformity of the medial wall of the right orbit consistent with a fracture which is probably chronic. Correlate clinically. CTAP: 1.An expansile approximately 5 x 4 cm osteolytic lesion is seen involving the right iliac bone ventrally with an extraosseous soft tissue component. 2.Smaller less prominent nonexpansile osteolytic lesions are seen within the lumbosacral spine and bilateral iliac bones. 3.Mild pathologic L1 vertebral body compression fracture with minimal bony r etropulsion. 4.There are probable small osteolytic lesions within the femoral heads and necks bilaterally. Several enlarged right internal iliac lymph nodes are noted within the lower pelvis the most prominent measuring 1.7 cm in diameter. 5. There is mild fusiform aneurysmal dilatation of the suprarenal aorta with a 3.4 cm diameter. 6. Incidental left renal cortical cysts. 7. Moderate prostate enlargement. 8. Mild diffuse urinary bladder wall thickening is noted probably on the basis of chronic outlet obstruction. CT Chest: 1. In comparison to a previous CT exam of 07/12/2013 interval development of multilevel thoracic vertebral body osteolytic lesions are noted. 2. Minimal T5 and mild T6 pathologic vertebral body compression fractures are noted. There is mild bony retropulsion at the T6 level. 3. Prominently increased fibrosis within the upper and lower lung mondragon bilaterally, left more than right. 4. Interval development of several mildly enlarged subcarinal mediastinal lymph nodes is noted. Development of several multilevel bilateral rib osteolytic lesions are seen suggestive of neoplastic disease. 5. Status post interval median sternotomy, Allowing for partially obscuring metallic artifact there are possible small osteolytic lesions within the sternal body. 6. As on prior exam there is fusiform aneurysmal dilatation of the aortic arch and descending aorta with a 3.7 cm diameter. Currently c/o of pain 10/10 with no relief with morphine and tylenol C/O weight loss, unsure how many lbs, Last saw PCP 2 weeks ago,c/o of generalized pain, more prominently right sided chest pain. 04/30/20: NAD PSA elevated to 120, wound need either right pelvic lymph node biopsy or bone marrow biopsy Oncology and neurology input appreciated - Current Medication List Current Medications: Active Medications Acetaminophen (Tylenol -) 650 mg PO Q4H PRN PRN Reason: PAIN LEVEL 1-5 Last Admin: 04/26/20 13:44 Dose: 650 mg Documented by: Albuterol Sulfate (Ventolin Hfa Inhaler -) 2 puff IH Q4H PRN PRN Reason: SHORT OF BREATH/WHEEZING Docusate Sodium (Colace -) 100 mg PO BID PRN PRN Reason: CONSTIPATION Last Admin: 04/30/20 09:32 Dose: 100 mg Documented by: Gabapentin (Neurontin -) 100 mg PO TID [facility] Last Admin: 04/30/20 06:10 Dose: 100 mg Documented by: Heparin Sodium (Porcine) (Heparin -) 5,000 unit SQ BID [facility] Last Admin: 04/30/20 09:33 Dose: 5,000 unit Documented by: Hydromorphone HCl (Dilaudid Vial -) 2 mg IVPB Q4H PRN PRN Reason: PAIN LEVEL 6-10 Last Admin: 04/30/20 06:11 Dose: 2 mg Documented by: Potassium Chloride/Sodium Chloride (1/2ns+20meq Kcl) 20 meq in 1,000 mls @ 75 mls/hr IV ASDIR [facility] Last Admin: 04/30/20 03:28 Dose: 75 mls/hr Documented by: Magnesium Oxide (Mag-Ox -) 400 mg PO BID [facility] Last Admin: 04/30/20 09:33 Dose: 400 mg Documented by: Mirtazapine (Remeron -) 7.5 mg PO [facility] Last Admin: 04/29/20 21:35 Dose: 7.5 mg Documented by: Multivitamins/Minerals/Vitamin C (Tab-A-Vit -) 1 tab PO DAILY [facility] Last Admin: 04/30/20 09:32 Dose: 1 tab Documented by: Polyethylene Glycol (Miralax (For Daily Use) -) 17 gm PO DAILY [facility] Last Admin: 04/30/20 09:33 Dose: 17 grams Documented by: Rosuvastatin Calcium (Crestor -) 10 mg PO [facility] Last Admin: 04/29/20 21:35 Dose: 10 mg Documented by: Fluticasone/Salmeterol (Advair 100mcg/50mcg -) 1 puff IH BID [facility] Last Admin: 04/30/20 09:33 Dose: 1 puff Documented by: Sitagliptin Phosphate (Januvia -) 50 mg PO DAILY@0700 [facility] Last Admin: 04/30/20 06:10 Dose: 50 mg Documented by: Tamsulosin HCl (Flomax -) 0.4 mg PO DAILY@0830 [facility] Last Admin: 04/30/20 08:44 Dose: 0.4 mg Documented by: Tiotropium [place] (Spiriva Respimat) 2 puff IH DAILY [facility] Last Admin: 04/30/20 09:34 Dose: 2 puff Documented by: - Objective Vital Signs: Vital Signs Temperature 98.2 F 04/30/20 09:29 Pulse Rate 100 H 04/30/20 09:29 Respiratory Rate 22 H 04/30/20 09:29 Blood Pressure 131/74 04/30/20 09:29 O2 Sat by Pulse Oximetry (%) 93 L 04/30/20 09:29 Constitutional: Yes: No Distress, Calm, Cachectic Cardiovascular: Yes: Regular Rate and Rhythm Respiratory: Yes: Regular, CTA Bilaterally Gastrointestinal: Yes: Normal Bowel Sounds, Soft Genitourinary: Yes: WNL Musculoskeletal: Yes: Muscle Weakness Extremities: Yes: WNL Edema: No Peripheral Pulses WNL: Yes Neurological: Yes: Alert, Oriented Psychiatric: Yes: Alert, Oriented Labs: CBC, BMP 04/30/20 09:00 04/30/20 09:00 INR, PTT INR 1.24 (0.83-1.09) H 04/26/20 04:45 Problem List - Problems (1) Cachexia Problems reviewed: Yes Code(s): R64 - CACHEXIA (2) Malnutrition Assessment/Plan: -Start multivitamin -Start mirtazapine 7.5 mg po HS -Ensure BID + Magic cup Problems reviewed: Yes Code(s): E46 - UNSPECIFIED PROTEIN-CALORIE MALNUTRITION (3) JEAN (acute kidney injury) Assessment/Plan: -Resolved -Likely 2/2 to dehydration -monitor trend -Nephrology on board Problems reviewed: Yes Code(s): N17.9 - ACUTE KIDNEY FAILURE, UNSPECIFIED (4) Aortic aneurysm Assessment/Plan: -3.4 cm suprarenal aortic aneurysm, monitor for now Problems reviewed: Yes Code(s): I71.9 - AORTIC ANEURYSM OF UNSPECIFIED SITE, WITHOUT RUPTURE (5) Compression fracture Assessment/Plan: -Neurosurgery consult -Pain management- Acetaminophen 650 mg po Q4H PRN for pain 1-5 Dilaudid 2 mg po Q4H PRN for pain 6-10 -Start Gabapentin 100 mg po TID -Will get consult from Dr Mark Kohler for pain management Problems reviewed: Yes Code(s): [id number] - (6) Hypercalcemia Assessment/Plan: -Trending down -Seen by Nephrology -PTH at 11 Problems reviewed: Yes Code(s): E83.52 - HYPERCALCEMIA (7) Metastatic cancer Assessment/Plan: -Oncology consult appreciated -Immunofixation/SPEP kappa free light chains quant elevated -PSA 120 -Pt for bone biopsy -IR consult Problems reviewed: Yes Code(s): C79.9 - SECONDARY MALIGNANT NEOPLASM OF UNSPECIFIED SITE Qualifiers: Area of secondary neoplastic involvement: bone Qualified Code(s): C79.51 - Secondary malignant neoplasm of bone (8) Frequent falls Assessment/Plan: -Physica ltherapy -Safety precautions Problems reviewed: Yes Code(s): R29.6 - REPEATED FALLS Assessment/Plan See problem list Spoke to Wang Richards, who is the health care proxy at [phone]- pt and niece both have consented to bone biopsy.
[2020-04-30] MEDS: ACETAMINOPHEN 325 MG TABLET (FP) PO PRN ×2 (13:21→17:56)
--- NOTE | 2020-04-30 14:46 | CON.GU ---
Consult Consult Specialty:: Referred by:: Eyal Reason for Consultation:: elevated PSA - History of Present Illness Chief Complaint: s/p fall History of Present Illness: 74 YO man with Mhx of HTN, DM, HLD, ILD, BPH and Aortic Aneurysm s/p repair 1 year ago, presented to ED after his niece found him on floor and unable to get up. Pt reported that he started having pain and weakness all over his body over the last month, associated with decreased appetite and wt loss (reported 20lbs loss). His symptoms became worse over the last 5 days, and last night he was feeling so weak, he sat on floor and couldn't get up till his niece came to check on him and found him on floor. He denies LOC, dizziness, change in urine or bowel habits. No cough or fever reported. Pt denies voiding problems. PSA 120, cons req. - History Source History Provided By: Patient, Family Member, Medical Record - Past Medical History Cardio/Vascular: Yes: HTN, Hyperlipdemia Pulmonary: Yes: Other (ILD) Renal/: Yes: BPH Endocrine: Yes: Diabetes Mellitus - Past Surgical History Additional Surgical History: AV repair - Alcohol/Substance Use Hx Alcohol Use: Yes (beer, quit 15 years ago) - Smoking History Smoking history: Former smoker Have you smoked in the past 12 months: No Aproximately how many cigarettes per day: 5 If you are a former smoker, when did you quit?: 2019 - Social History Usual Living Arrangement: Alone ADL: Independent History of Recent Travel: No Home Medications - Allergies Allergies/Adverse Reactions: Allergies Allergy/AdvReac Type Severity Reaction Status Date / Time No Known Allergies Allergy Verified 04/26/20 10:11 - Home Medications Home Medications: Ambulatory Orders Janumet 50-1,000 mg Tablet 1 tab PO BID 03/14/16 Albuterol Sulfate Inhaler - [Ventolin Hfa Inhaler -] 1 - 2 inh PO PRN PRN 04/25/20 Meloxicam 7.5 mg PO DAILY 04/25/20 Metoprolol Succinate 50 mg PO DAILY 04/25/20 Oxycodone HCl/Acetaminophen [Percocet 10-325 mg Tablet] 1 each PO PRN PRN 04/25/20 Rosuvastatin Calcium [Crestor] 10 mg PO DAILY 04/25/20 Salmeterol/Fluticasone [Advair 100Mcg/50Mcg -] 250 mg PO BID 04/25/20 Tamsulosin HCl [Flomax] 0.4 mg PO DAILY 04/25/20 Tiotropium [place] [Spiriva Respimat] 4 gm IH DAILY 04/25/20 Family Medical History Family History: Unable to Obtain Physical Exam- Vital Signs: Vital Signs Temperature 98.2 F 04/30/20 09:29 Pulse Rate 100 H 04/30/20 09:29 Respiratory Rate 22 H 04/30/20 09:29 Blood Pressure 131/74 04/30/20 09:29 O2 Sat by Pulse Oximetry (%) 93 L 04/30/20 09:29 Constitutional: Yes: Well Nourished, No Distress, Calm Gastrointestinal: Yes: WNL, Normal Bowel Sounds, Soft Renal/: Yes: WNL. 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 Code(s): R97.20 - ELEVATED PROSTATE SPECIFIC ANTIGEN [PSA] (2) Bone metastases Code(s): C79.51 - SECONDARY MALIGNANT NEOPLASM OF BONE (3) JEAN (acute kidney injury) Code(s): N17.9 - ACUTE KIDNEY FAILURE, UNSPECIFIED (4) Aortic aneurysm Code(s): I71.9 - AORTIC ANEURYSM OF UNSPECIFIED SITE, WITHOUT RUPTURE (5) Cachexia Code(s): R64 - CACHEXIA (6) Compression fracture Code(s): [id number] - (7) Frequent falls Code(s): R29.6 - REPEATED FALLS (8) Hypercalcemia Code(s): E83.52 - HYPERCALCEMIA (9) Metastatic cancer Code(s): C79.9 - SECONDARY MALIGNANT NEOPLASM OF UNSPECIFIED SITE Qualifiers: Area of secondary neoplastic involvement: bone Qualified Code(s): C79.51 - Secondary malignant neoplasm of bone
--- NOTE | 2020-04-30 15:01 | PN ---
Progress Note, Physician History of Present Illness: Pt seen and examined at bedside. He denies shortness of breath. - Current Medication List Current Medications: Active Medications Acetaminophen (Tylenol -) 650 mg PO Q4H PRN PRN Reason: PAIN LEVEL 1-5 Last Admin: 04/30/20 13:21 Dose: 650 mg Documented by: Albuterol Sulfate (Ventolin Hfa Inhaler -) 2 puff IH Q4H PRN PRN Reason: SHORT OF BREATH/WHEEZING Docusate Sodium (Colace -) 100 mg PO BID PRN PRN Reason: CONSTIPATION Last Admin: 04/30/20 09:32 Dose: 100 mg Documented by: Gabapentin (Neurontin -) 100 mg PO TID [facility] Last Admin: 04/30/20 13:22 Dose: 100 mg Documented by: Heparin Sodium (Porcine) (Heparin -) 5,000 unit SQ BID [facility] Last Admin: 04/30/20 09:33 Dose: 5,000 unit Documented by: Hydromorphone HCl (Dilaudid Vial -) 2 mg IVPB Q4H PRN PRN Reason: PAIN LEVEL 6-10 Last Admin: 04/30/20 06:11 Dose: 2 mg Documented by: Potassium Chloride/Sodium Chloride (1/2ns+20meq Kcl) 20 meq in 1,000 mls @ 75 mls/hr IV ASD[facility] Last Admin: 04/30/20 03:28 Dose: 75 mls/hr Documented by: Magnesium Oxide (Mag-Ox -) 400 mg PO BID [facility] Last Admin: 04/30/20 09:33 Dose: 400 mg Documented by: Mirtazapine (Remeron -) 7.5 mg PO [facility] Last Admin: 04/29/20 21:35 Dose: 7.5 mg Documented by: Multivitamins/Minerals/Vitamin C (Tab-A-Vit -) 1 tab PO DAILY [facility] Last Admin: 04/30/20 09:32 Dose: 1 tab Documented by: Polyethylene Glycol (Miralax (For Daily Use) -) 17 gm PO DAILY [facility] Last Admin: 04/30/20 09:33 Dose: 17 grams Documented by: Rosuvastatin Calcium (Crestor -) 10 mg PO [facility] Last Admin: 04/29/20 21:35 Dose: 10 mg Documented by: Fluticasone/Salmeterol (Advair 100mcg/50mcg -) 1 puff IH BID [facility] Last Admin: 04/30/20 09:33 Dose: 1 puff Documented by: Senna (Senna -) 2 tab PO [facility] Sitagliptin Phosphate (Januvia -) 50 mg PO DAILY@0700 [facility] Last Admin: 04/30/20 06:10 Dose: 50 mg Documented by: Tamsulosin HCl (Flomax -) 0.4 mg PO DAILY@0830 [facility] Last Admin: 04/30/20 08:44 Dose: 0.4 mg Documented by: Tiotropium [place] (Spiriva Respimat) 2 puff IH DAILY [facility] Last Admin: 04/30/20 09:34 Dose: 2 puff Documented by: - Objective Vital Signs: Vital Signs Temperature 98.2 F 04/30/20 09:29 Pulse Rate 100 H 04/30/20 09:29 Respiratory Rate 22 H 04/30/20 09:29 Blood Pressure 131/74 04/30/20 09:29 O2 Sat by Pulse Oximetry (%) 93 L 04/30/20 09:29 Constitutional: Yes: Calm Eyes: Yes: Conjunctiva Clear HENT: Yes: Atraumatic Neck: Yes: Supple Cardiovascular: Yes: S1, S2 Respiratory: Yes: CTA Bilaterally Gastrointestinal: Yes: Normal Bowel Sounds, Soft Musculoskeletal: Yes: WNL Edema: No Neurological: Yes: Oriented Psychiatric: Yes: Oriented Labs: CBC, BMP 04/30/20 09:00 04/30/20 09:00 INR, PTT INR 1.24 (0.83-1.09) H 04/26/20 04:45 Assessment/Plan Current Medications Generic Name Dose Route Start Last Admin Trade Name Eulogio PRN Reason Stop Dose Admin Acetaminophen 650 mg 04/25/20 20:56 04/30/20 13:21 Tylenol - PO 650 mg Q4H PRN Administration PAIN LEVEL 1-5 Albuterol Sulfate 2 puff 04/25/20 21:40 Ventolin Hfa Inhaler - IH Q4H PRN SHORT OF BREATH/WHEEZING Docusate Sodium 100 mg 04/25/20 21:01 04/30/20 09:32 Colace - PO 100 mg BID PRN Administration CONSTIPATION Gabapentin 100 mg 04/27/20 14:00 04/30/20 13:22 Neurontin - PO 100 mg TID [facility] Administration Heparin Sodium (Porcine) 5,000 unit 04/29/20 22:00 04/30/20 09:33 Heparin - SQ 5,000 unit BID [facility] Administration Hydromorphone HCl 2 mg 04/27/20 11:20 04/30/20 06:11 Dilaudid Vial - IVPB 2 mg Q4H PRN Administration PAIN LEVEL 6-10 Potassium Chloride/Sodium Chloride 20 meq in 1,000 mls @ 75 mls/hr 04/27/20 12:50 04/30/20 03:28 1/2ns+20meq Kcl IV 75 mls/hr ASDIR [facility] Administration Magnesium Oxide 400 mg 04/26/20 22:00 04/30/20 09:33 Mag-Ox - PO 400 mg BID [facility] Administration Mirtazapine 7.5 mg 04/27/20 22:00 04/29/20 21:35 Remeron - PO 7.5 mg HS [facility] Administration Multivitamins/Minerals/Vitamin C 1 tab 04/27/20 11:00 04/30/20 09:32 Tab-A-Vit - PO 1 tab DAILY [facility] Administration Polyethylene Glycol 17 gm 04/27/20 11:15 04/30/20 09:33 Miralax (For Daily Use) - PO 17 grams DAILY [facility] Administration Rosuvastatin Calcium 10 mg 04/25/20 22:00 04/29/20 21:35 Crestor - PO 10 mg HS [facility] Administration Fluticasone/Salmeterol 1 puff 04/25/20 22:00 04/30/20 09:33 Advair 100mcg/50mcg - IH 1 puff BID [facility] Administration Senna 2 tab 04/30/20 22:00 Senna - PO HS [facility] Sitagliptin Phosphate 50 mg 04/28/20 07:00 04/30/20 06:10 Januvia - PO 50 mg DAILY@0700 [facility] Administration Tamsulosin HCl 0.4 mg 04/26/20 08:30 04/30/20 08:44 Flomax - PO 0.4 mg DAILY@0830 [facility] Administration Tiotropium [place] 2 puff 04/26/20 10:00 04/30/20 09:34 Spiriva Respimat IH 2 puff DAILY [facility] Administration Laboratory Tests 04/26/20 04/26/20 04/27/20 06:20 06:20 06:48 PTH Intact 11 L LUISANA M-Kendrick Not observed Free [place] LC, Quant 21.2 H Free [place] LC, Quant 17.8 Free [place]/Lambda Ratio 1.19 Impression 1. mamie 2. hypercalcemia 3. hld 4. ILD 5. htn 6. hypokalemia 7. hypomagnesemia 8. DM 9. lactic acidosis Plan - calcium improved - oncology workup in progress - repeat labs in am - can change fluids to ns and decrease rate as sodium is dropping - lasx on hold
[2020-04-30] MEDS: SODIUM CHLORIDE 1,000 ML IV SCH (15:31)
--- NOTE | 2020-04-30 16:01 | PN ---
Teaching Attending Note Name of Resident: Carmela Francis ATTENDING PHYSICIAN STATEMENT I saw and evaluated the patient. I reviewed the resident's note and discussed the case with the resident. I agree with the resident's findings and plan as documented. 74y M who presents with hypercalcemia (now resolved) found to have bony mets throughout spine/ribs. PSA elevated to 120. Will biopsy bony met to confirm Prostate ca. Spoke extensively with patient and his niece at bedside; she is aware that after the biopsy is complete, they can follow pathology results and further plan of care as outpatient with an Oncologist in the community. All questions were answered to the satisfaction of the patient.
[2020-04-30] MEDS: AMINO ACIDS/PROTEIN HYDROLYS 30 ML LIQUID.PKT PO SCH (17:56)
[2020-04-30] MEDS ORDERED: ACETAMINOPHEN 325 MG TABLET (FP) PO PRN (18:15)
[2020-04-30] MEDS: oxyCODONE HCL 5 MG TABLET PO PRN (22:01)
[2020-04-30] MEDS: ROSUVASTATIN CA 10 MG TABLET (FP) PO SCH (22:04)
[2020-04-30] MEDS: SENNOSIDES 8.6MG TABLET (FP) PO SCH (22:05)
[2020-04-30] MEDS: MIRTAZAPINE 15 MG TABLET (FP) PO SCH (22:05)
[2020-05-01] MEDS: GABAPENTIN 100 MG CAPSULE PO SCH ×3 (06:35→21:50)
[2020-05-01] MEDS: sitaGLIPtin PHOSPHATE 50 MG TABLET PO SCH (06:36)
[2020-05-01] MEDS ORDERED: PT OWN MED DRAWER 7, Y5N ONE (10:51)
[2020-05-01] MEDS: traMADol HCL 50 MG TABLET PO PRN (11:03)
[2020-05-01] MEDS: MULTIVITAMINS (DAILY MVI) TABLET (FP) PO SCH (11:04)
[2020-05-01] MEDS: TAMSULOSIN HCL 0.4 MG CAP PO SCH (11:04)
[2020-05-01] MEDS: HEPARIN NA (PORCINE) 5,000 UNITS/ML 1ML VIAL SQ SCH ×2 (11:04→21:50)
[2020-05-01] MEDS: AMINO ACIDS/PROTEIN HYDROLYS 30 ML LIQUID.PKT PO SCH ×2 (11:04→18:17)
[2020-05-01] MEDS: MAGNESIUM OXIDE 400 MG TABLET (FP) PO SCH ×2 (11:05→21:49)
[2020-05-01] MEDS: TIOTROPIUM BROMIDE 2.5 MCG (SPIRIVA) RESPIMAT INHALER IH SCH (11:06)
[2020-05-01] MEDS: FLUTICASONE/SALMETEROL 100 MCG/50 MCG DISKUS IH SCH ×2 (11:06→21:48)
[2020-05-01] MEDS: POLYETHYLENE GLYCOL 3350 119 GM BTL PO SCH (11:06)
[2020-05-01] MEDS: SODIUM CHLORIDE 1,000 ML IV SCH ×2 (12:35→16:19)
--- NOTE | 2020-05-01 13:01 | PN ---
Progress Note, Physician History of Present Illness: Pt seen and examined at bedside. He is awake and alert. He denies shortness of breath. - Current Medication List Current Medications: Active Medications Acetaminophen (Tylenol -) 975 mg PO Q6H PRN PRN Reason: PAIN LEVEL 1 - 3 Albuterol Sulfate (Ventolin Hfa Inhaler -) 2 puff IH Q4H PRN PRN Reason: SHORT OF BREATH/WHEEZING Amino Acids (Prosource No Carb Liquid Pkt) 30 ml PO BID@0800,1730 [facility] Last Admin: 05/01/20 11:04 Dose: 30 ml Documented by: Docusate Sodium (Colace -) 100 mg PO BID PRN PRN Reason: CONSTIPATION Last Admin: 04/30/20 09:32 Dose: 100 mg Documented by: Gabapentin (Neurontin -) 100 mg PO TID [facility] Last Admin: 05/01/20 06:35 Dose: 100 mg Documented by: Heparin Sodium (Porcine) (Heparin -) 5,000 unit SQ BID [facility] Last Admin: 05/01/20 11:04 Dose: 5,000 unit Documented by: Sodium Chloride (Normal Saline -) 1,000 mls @ 42 mls/hr IV ASDIR [facility] Last Admin: 05/01/20 12:35 Dose: 42 mls/hr Documented by: Magnesium Oxide (Mag-Ox -) 400 mg PO BID [facility] Last Admin: 05/01/20 11:05 Dose: 400 mg Documented by: Mirtazapine (Remeron -) 7.5 mg PO [facility] Last Admin: 04/30/20 22:05 Dose: 7.5 mg Documented by: Multivitamins/Minerals/Vitamin C (Tab-A-Vit -) 1 tab PO DAILY [facility] Last Admin: 05/01/20 11:04 Dose: 1 tab Documented by: Oxycodone HCl (Roxicodone -) 5 mg PO Q4H PRN PRN Reason: PAIN LEVEL 7 - 10 Last Admin: 04/30/20 22:01 Dose: 5 mg Documented by: Polyethylene Glycol (Miralax (For Daily Use) -) 17 gm PO DAILY [facility] Last Admin: 05/01/20 11:06 Dose: 17 grams Documented by: Rosuvastatin Calcium (Crestor -) 10 mg PO [facility] Last Admin: 04/30/20 22:04 Dose: 10 mg Documented by: Fluticasone/Salmeterol (Advair 100mcg/50mcg -) 1 puff IH BID [facility] Last Admin: 05/01/20 11:06 Dose: 1 puff Documented by: Senna (Senna -) 2 tab PO HS [facility] Last Admin: 04/30/20 22:05 Dose: 2 tab Documented by: Sitagliptin Phosphate (Januvia -) 50 mg PO DAILY@0700 [facility] Last Admin: 05/01/20 06:36 Dose: 50 mg Documented by: Tamsulosin HCl (Flomax -) 0.4 mg PO DAILY@0830 [facility] Last Admin: 05/01/20 11:04 Dose: 0.4 mg Documented by: Tiotropium [place] (Spiriva Respimat) 2 puff IH DAILY [facility] Last Admin: 05/01/20 11:06 Dose: 2 puff Documented by: Tramadol HCl (Ultram -) 50 mg PO Q6H PRN PRN Reason: PAIN LEVEL 4 - 6 Last Admin: 05/01/20 11:03 Dose: 50 mg Documented by: - Objective Vital Signs: Vital Signs Temperature 99.1 F 05/01/20 06:00 Pulse Rate 92 H 05/01/20 06:00 Respiratory Rate 18 05/01/20 06:00 Blood Pressure 105/60 05/01/20 06:00 O2 Sat by Pulse Oximetry (%) 98 05/01/20 06:00 Constitutional: Yes: Calm Eyes: Yes: Conjunctiva Clear HENT: Yes: Atraumatic Cardiovascular: Yes: S1, S2 Respiratory: Yes: CTA Bilaterally Gastrointestinal: Yes: Soft Genitourinary: Yes: WNL Musculoskeletal: Yes: WNL Edema: No Neurological: Yes: Oriented Psychiatric: Yes: Oriented Labs: CBC, BMP 04/30/20 09:00 04/30/20 09:00 INR, PTT INR 1.24 (0.83-1.09) H 04/26/20 04:45 Assessment/Plan Current Medications Generic Name Dose Route Start Last Admin Trade Name Freq PRN Reason Stop Dose Admin Acetaminophen 975 mg 04/30/20 18:15 Tylenol - PO Q6H PRN PAIN LEVEL 1 - 3 Albuterol Sulfate 2 puff 04/25/20 21:40 Ventolin Hfa Inhaler - IH Q4H PRN SHORT OF BREATH/WHEEZING Amino Acids 30 ml 04/30/20 17:30 05/01/20 11:04 Prosource No Carb Liquid Pkt PO 30 ml BID@0800,1730 [facility] Administration Docusate Sodium 100 mg 04/25/20 21:01 04/30/20 09:32 Colace - PO 100 mg BID PRN Administration CONSTIPATION Gabapentin 100 mg 04/27/20 14:00 05/01/20 06:35 Neurontin - PO 100 mg TID [facility] Administration Heparin Sodium (Porcine) 5,000 unit 04/29/20 22:00 05/01/20 11:04 Heparin - SQ 5,000 unit BID [facility] Administration Sodium Chloride 1,000 mls @ 42 mls/hr 04/30/20 15:15 05/01/20 12:35 Normal Saline - IV 42 mls/hr ASDIR [facility] Administration Magnesium Oxide 400 mg 04/26/20 22:00 05/01/20 11:05 Mag-Ox - PO 400 mg BID [facility] Administration Mirtazapine 7.5 mg 04/27/20 22:00 04/30/20 22:05 Remeron - PO 7.5 mg HS [facility] Administration Multivitamins/Minerals/Vitamin C 1 tab 04/27/20 11:00 05/01/20 11:04 Tab-A-Vit - PO 1 tab DAILY [facility] Administration Oxycodone HCl 5 mg 04/30/20 18:14 04/30/20 22:01 Roxicodone - PO 5 mg Q4H PRN Administration PAIN LEVEL 7 - 10 Polyethylene Glycol 17 gm 04/27/20 11:15 05/01/20 11:06 Miralax (For Daily Use) - PO 17 grams DAILY [facility] Administration Rosuvastatin Calcium 10 mg 04/25/20 22:00 04/30/20 22:04 Crestor - PO 10 mg HS [facility] Administration Fluticasone/Salmeterol 1 puff 04/25/20 22:00 05/01/20 11:06 Advair 100mcg/50mcg - IH 1 puff BID [facility] Administration Senna 2 tab 04/30/20 22:00 04/30/20 22:05 Senna - PO 2 tab HS [facility] Administration Sitagliptin Phosphate 50 mg 04/28/20 07:00 05/01/20 06:36 Januvia - PO 50 mg DAILY@0700 [facility] Administration Tamsulosin HCl 0.4 mg 04/26/20 08:30 05/01/20 11:04 Flomax - PO 0.4 mg DAILY@0830 [facility] Administration Tiotropium [place] 2 puff 04/26/20 10:00 05/01/20 11:06 Spiriva Respimat IH 2 puff DAILY [facility] Administration Tramadol HCl 50 mg 04/30/20 18:14 05/01/20 11:03 Ultram - PO 50 mg Q6H PRN Administration PAIN LEVEL 4 - 6 Impression 1. mamie 2. hypercalcemia 3. hld 4. ILD 5. htn 6. hypokalemia 7. hypomagnesemia 8. DM 9. lactic acidosis Plan - repeat labs in am - will order cmp - follow biopsy - oncology input appreciated - volume status is stable
[2020-05-01] MEDS: oxyCODONE HCL 5 MG TABLET PO PRN ×2 (14:01→19:43)
[2020-05-01] MEDS ORDERED: ACETAMINOPHEN 500 MG TABLET (FP) PO PRN (14:55)
--- NOTE | 2020-05-01 14:58 | PN ---
Progress Note, Physician Chief Complaint: Weakness Fall Weight loss SOB Multiple Vertebral fractures History of Present Illness: 74 YO man with Mhx of HTN, DM, HLD, ILD, BPH and Aortic Aneurysm s/p repair 1 year ago, presented to ED after his niece found him on floor and unable to get up. Pt reported that he started having pain and weakness all over his body over the last month, associated with decreased appetite and wt loss (reported 20lbs loss). His symptoms became worse over the last 5 days, and last night he was feeling so weak, he sat on floor and couldn't get up till his niece came to check on him and found him on floor. He denies LOC, dizziness, change in urine or bowel habits. No cough or fever reported. Upon evaluation in the ER, pt was noted to have: CT C Spine 04/25/20: Multilevel degenerative disc changes are noted. Mild multilevel patchy osseous low-attenuation is seen which could be on the basis of osteoporosis. Neoplastic disease is less likely. Comparison with prior CT/MRI exams is suggested if available from a different facility. CT head: A small curvilinear hypodense focus is noted within the left basal ganglia possibly representing a chronic infarct versus a nonspecific mildly dilated vessel. Correlation with nonemergent contrast enhanced MRI or CT is suggested. Several small bilateral frontal subcortical white matter hypodense foci are seen which may represent chronic infarct versus chronic microvascular ischemic c hanges. Mild periventricular chronic microvascular ischemic changes are noted. There is mild deformity of the medial wall of the right orbit consistent with a fracture which is probably chronic. Correlate clinically. CTAP: 1.An expansile approximately 5 x 4 cm osteolytic lesion is seen involving the right iliac bone ventrally with an extraosseous soft tissue component. 2.Smaller less prominent nonexpansile osteolytic lesions are seen within the lumbosacral spine and bilateral iliac bones. 3.Mild pathologic L1 vertebral body compression fracture with minimal bony r etropulsion. 4.There are probable small osteolytic lesions within the femoral heads and necks bilaterally. Several enlarged right internal iliac lymph nodes are noted within the lower pelvis the most prominent measuring 1.7 cm in diameter. 5. There is mild fusiform aneurysmal dilatation of the suprarenal aorta with a 3.4 cm diameter. 6. Incidental left renal cortical cysts. 7. Moderate prostate enlargement. 8. Mild diffuse urinary bladder wall thickening is noted probably on the basis of chronic outlet obstruction. CT Chest: 1. In comparison to a previous CT exam of 07/12/2013 interval development of multilevel thoracic vertebral body osteolytic lesions are noted. 2. Minimal T5 and mild T6 pathologic vertebral body compression fractures are noted. There is mild bony retropulsion at the T6 level. 3. Prominently increased fibrosis within the upper and lower lung mondragon bilaterally, left more than right. 4. Interval development of several mildly enlarged subcarinal mediastinal lymph nodes is noted. Development of several multilevel bilateral rib osteolytic lesions are seen suggestive of neoplastic disease. 5. Status post interval median sternotomy, Allowing for partially obscuring metallic artifact there are possible small osteolytic lesions within the sternal body. 6. As on prior exam there is fusiform aneurysmal dilatation of the aortic arch and descending aorta with a 3.7 cm diameter. Currently c/o of pain 10/10 with no relief with morphine and tylenol C/O weight loss, unsure how many lbs, Last saw PCP 2 weeks ago,c/o of generalized pain, more prominently right sided chest pain. 04/30/20: NAD PSA elevated to 120, wound need either right pelvic lymph node biopsy or bone marrow biopsy Oncology and neurology input appreciated 05/01/20: Intermittent pain controlled by oxycodone+ tramadol + acetaminophen - Current Medication List Current Medications: Active Medications Acetaminophen (Tylenol -) 975 mg PO Q6H PRN PRN Reason: PAIN LEVEL 1 - 3 Albuterol Sulfate (Ventolin Hfa Inhaler -) 2 puff IH Q4H PRN PRN Reason: SHORT OF BREATH/WHEEZING Amino Acids (Prosource No Carb Liquid Pkt) 30 ml PO BID@0800,1730 [facility] Last Admin: 05/01/20 11:04 Dose: 30 ml Documented by: Docusate Sodium (Colace -) 100 mg PO BID PRN PRN Reason: CONSTIPATION Last Admin: 04/30/20 09:32 Dose: 100 mg Documented by: Gabapentin (Neurontin -) 200 mg PO TID [facility] Last Admin: 05/01/20 14:02 Dose: 200 mg Documented by: Heparin Sodium (Porcine) (Heparin -) 5,000 unit SQ BID [facility] Last Admin: 05/01/20 11:04 Dose: 5,000 unit Documented by: Sodium Chloride (Normal Saline -) 1,000 mls @ 42 mls/hr IV ASDIR [facility] Last Admin: 05/01/20 12:35 Dose: 42 mls/hr Documented by: Magnesium Oxide (Mag-Ox -) 400 mg PO BID [facility] Last Admin: 05/01/20 11:05 Dose: 400 mg Documented by: Mirtazapine (Remeron -) 7.5 mg PO [facility] Last Admin: 04/30/20 22:05 Dose: 7.5 mg Documented by: Multivitamins/Minerals/Vitamin C (Tab-A-Vit -) 1 tab PO DAILY [facility] Last Admin: 05/01/20 11:04 Dose: 1 tab Documented by: Oxycodone HCl (Roxicodone -) 5 mg PO Q4H PRN PRN Reason: PAIN LEVEL 7 - 10 Last Admin: 05/01/20 14:01 Dose: 5 mg Documented by: Polyethylene Glycol (Miralax (For Daily Use) -) 17 gm PO DAILY [facility] Last Admin: 05/01/20 11:06 Dose: 17 grams Documented by: Rosuvastatin Calcium (Crestor -) 10 mg PO [facility] Last Admin: 04/30/20 22:04 Dose: 10 mg Documented by: Fluticasone/Salmeterol (Advair 100mcg/50mcg -) 1 puff IH BID [facility] Last Admin: 05/01/20 11:06 Dose: 1 puff Documented by: Senna (Senna -) 2 tab PO [facility] Last Admin: 04/30/20 22:05 Dose: 2 tab Documented by: Sitagliptin Phosphate (Januvia -) 50 mg PO DAILY@0700 [facility] Last Admin: 05/01/20 06:36 Dose: 50 mg Documented by: Tamsulosin HCl (Flomax -) 0.4 mg PO DAILY@0830 [facility] Last Admin: 05/01/20 11:04 Dose: 0.4 mg Documented by: Tiotropium [place] (Spiriva Respimat) 2 puff IH DAILY [facility] Last Admin: 05/01/20 11:06 Dose: 2 puff Documented by: Tramadol HCl (Ultram -) 50 mg PO Q6H PRN PRN Reason: PAIN LEVEL 4 - 6 Last Admin: 05/01/20 11:03 Dose: 50 mg Documented by: - Objective Vital Signs: Vital Signs Temperature 98.2 F 05/01/20 11:00 Pulse Rate 97 H 05/01/20 11:00 Respiratory Rate 22 H 05/01/20 11:00 Blood Pressure 124/62 05/01/20 11:00 O2 Sat by Pulse Oximetry (%) 99 05/01/20 11:00 Constitutional: Yes: No Distress, Calm, Cachectic Cardiovascular: Yes: Regular Rate and Rhythm Respiratory: Yes: Regular, CTA Bilaterally Gastrointestinal: Yes: Normal Bowel Sounds, Soft Genitourinary: Yes: WNL Musculoskeletal: Yes: Back Pain, Muscle Pain, Muscle Weakness Edema: No Peripheral Pulses WNL: Yes Neurological: Yes: Alert, Oriented Psychiatric: Yes: Alert, Oriented Labs: CBC, BMP 04/30/20 09:00 04/30/20 09:00 INR, PTT INR 1.24 (0.83-1.09) H 04/26/20 04:45 Problem List - Problems (1) Cachexia Problems reviewed: Yes Code(s): R64 - CACHEXIA (2) Malnutrition Assessment/Plan: -Start multivitamin -Start mirtazapine 7.5 mg po HS -Ensure BID + Magic cup Problems reviewed: Yes Code(s): E46 - UNSPECIFIED PROTEIN-CALORIE MALNUTRITION (3) JEAN (acute kidney injury) Assessment/Plan: -Resolved -Likely 2/2 to dehydration -monitor trend -Nephrology on board Problems reviewed: Yes Code(s): N17.9 - ACUTE KIDNEY FAILURE, UNSPECIFIED (4) Aortic aneurysm Assessment/Plan: -3.4 cm suprarenal aortic aneurysm, monitor for now Problems reviewed: Yes Code(s): I71.9 - AORTIC ANEURYSM OF UNSPECIFIED SITE, WITHOUT RUPTURE (5) Compression fracture Assessment/Plan: -Neurosurgery consult -Pain management- Acetaminophen 650 mg po Q4H PRN for pain 1-5 Dilaudid 2 mg po Q4H PRN for pain 6-10 -Start Gabapentin 100 mg po TID -Will get consult from Dr Mark Kohler for pain management Problems reviewed: Yes Code(s): BJG1279 - (6) Hypercalcemia Assessment/Plan: -Trending down -Seen by Nephrology -PTH at 11 Problems reviewed: Yes Code(s): E83.52 - HYPERCALCEMIA (7) Metastatic cancer Assessment/Plan: -Oncology consult appreciated -Immunofixation/SPEP kappa free light chains quant elevated -PSA 120 -s/p bone biopsy- results will be addressed outpatient -Needs Prostate biopsy outpatient -Instructed pt's HCP -[facility] to f/u with urology and oncology outpatient Problems reviewed: Yes Code(s): C79.9 - SECONDARY MALIGNANT NEOPLASM OF UNSPECIFIED SITE Qualifiers: Area of secondary neoplastic involvement: bone Qualified Code(s): C79.51 - Secondary malignant neoplasm of bone (8) Frequent falls Assessment/Plan: -Physical therapy -Safety precautions Problems reviewed: Yes Code(s): R29.6 - REPEATED FALLS Assessment/Plan See problem list Spoke to Wang Haynes, who is the health care proxy at [phone]- She will pick pt up in AM
[2020-05-01] MEDS: ROSUVASTATIN CA 10 MG TABLET (FP) PO SCH (21:48)
[2020-05-01] MEDS: SENNOSIDES 8.6MG TABLET (FP) PO SCH (21:49)
[2020-05-01] MEDS: MIRTAZAPINE 15 MG TABLET (FP) PO SCH (21:49)
[2020-05-02] MEDS: GABAPENTIN 100 MG CAPSULE PO SCH ×3 (05:56→21:37)
[2020-05-02] MEDS: sitaGLIPtin PHOSPHATE 50 MG TABLET PO SCH (06:06)
[2020-05-02] MEDS: oxyCODONE HCL 5 MG TABLET PO PRN ×2 (08:27→18:39)
[2020-05-02] MEDS: TAMSULOSIN HCL 0.4 MG CAP PO SCH (08:27)
[2020-05-02] MEDS: AMINO ACIDS/PROTEIN HYDROLYS 30 ML LIQUID.PKT PO SCH ×2 (08:27→17:46)
[2020-05-02] MEDS: POLYETHYLENE GLYCOL 3350 119 GM BTL PO SCH (09:28)
[2020-05-02] MEDS: TIOTROPIUM BROMIDE 2.5 MCG (SPIRIVA) RESPIMAT INHALER IH SCH (09:28)
[2020-05-02] MEDS: MULTIVITAMINS (DAILY MVI) TABLET (FP) PO SCH (09:28)
[2020-05-02] MEDS: MAGNESIUM OXIDE 400 MG TABLET (FP) PO SCH ×2 (09:29→21:37)
[2020-05-02] MEDS: HEPARIN NA (PORCINE) 5,000 UNITS/ML 1ML VIAL SQ SCH ×2 (09:29→21:36)
[2020-05-02] MEDS: FLUTICASONE/SALMETEROL 100 MCG/50 MCG DISKUS IH SCH ×2 (09:29→21:37)
--- NOTE | 2020-05-02 10:55 | DS ---
Physical Examination Vital Signs: Vital Signs Temperature 98.1 F 05/02/20 08:21 Pulse Rate 96 H 05/02/20 08:21 Respiratory Rate 18 05/02/20 08:21 Blood Pressure 140/62 05/02/20 08:21 O2 Sat by Pulse Oximetry (%) 97 05/02/20 08:21 Findings/Remarks: 74 YO man with Mhx of HTN, DM, HLD, ILD, BPH and Aortic Aneurysm s/p repair 1 year ago, presented to ED after his niece found him on floor and unable to get up. Pt reported that he started having pain and weakness all over his body over the last month, associated with decreased appetite and wt loss (reported 20lbs loss). His symptoms became worse over the last 5 days, and last night he was feeling so weak, he sat on floor and couldn't get up till his niece came to check on him and found him on floor. He denies LOC, dizziness, change in urine or bowel habits. No cough or fever reported. Upon evaluation in the ER, pt was noted to have: CT C Spine 04/25/20: Multilevel degenerative disc changes are noted. Mild multilevel patchy osseous low-attenuation is seen which could be on the basis of osteoporosis. Neoplastic disease is less likely. Comparison with prior CT/MRI exams is suggested if available from a different facility. CT head: A small curvilinear hypodense focus is noted within the left basal ganglia possibly representing a chronic infarct versus a nonspecific mildly dilated vessel. Correlation with nonemergent contrast enhanced MRI or CT is suggested. Several small bilateral frontal subcortical white matter hypodense foci are seen which may represent chronic infarct versus chronic microvascular ischemic changes. Mild periventricular chronic microvascular ischemic changes are noted. There is mild deformity of the medial wall of the right orbit consistent with a fracture which is probably chronic. Correlate clinically. CTAP: 1.An expansile approximately 5 x 4 cm osteolytic lesion is seen involving the right iliac bone ventrally with an extraosseous soft tissue component. 2.Smaller less prominent nonexpansile osteolytic lesions are seen within the lumbosacral spine and bilateral iliac bones. 3.Mild pathologic L1 vertebral body compression fracture with minimal bony retropulsion. 4.There are probable small osteolytic lesions within the femoral heads and necks bilaterally. Several enlarged right internal iliac lymph nodes are noted within the lower pelvis the most prominent measuring 1.7 cm in diameter. 5. There is mild fusiform aneurysmal dilatation of the suprarenal aorta with a 3.4 cm diameter. 6. Incidental left renal cortical cysts. 7. Moderate prostate enlargement. 8. Mild diffuse urinary bladder wall thickening is noted probably on the basis of chronic outlet obstruction. CT Chest: 1. In comparison to a previous CT exam of 07/12/2013 interval development of multilevel thoracic vertebral body osteolytic lesions are noted. 2. Minimal T5 and mild T6 pathologic vertebral body compression fractures are noted. There is mild bony retropulsion at the T6 level. 3. Prominently increased fibrosis within the upper and lower lung mnodragon bilaterally, left more than right. 4. Interval development of several mildly enlarged subcarinal mediastinal lymph nodes is noted. Development of several multilevel bilateral rib osteolytic lesions are seen suggestive of neoplastic disease. 5. Status post interval median sternotomy, Allowing for partially obscuring metallic artifact there are possible small osteolytic lesions within the sternal body. 6. As on prior exam there is fusiform aneurysmal dilatation of the aortic arch and descending aorta with a 3.7 cm diameter. Currently c/o of pain 10/10 with no relief with morphine and tylenol C/O weight loss, unsure how many lbs, Last saw PCP 2 weeks ago,c/o of generalized pain, more prominently right sided chest pain. 04/30/20: NAD PSA elevated to 120, wound need either right pelvic lymph node biopsy or bone marrow biopsy Oncology and neurology input appreciated 05/01/20: Intermittent pain controlled by oxycodone+ tramadol + acetaminophen 05/02/20: NAD, in chair SpO2 dropped down to 88 on RA upon ambulation. Shuffling gait, risk for fall. Pt would benefit from bedside commode, transport chair, rolling walker and a shower chair due to decreased mobility, to decreased risk for fall. (1) Cachexia Problems reviewed: Yes Code(s): R64 - CACHEXIA (2) Malnutrition Assessment/Plan: -Started multivitamin -Started mirtazapine 7.5 mg po HS -Ensure BID + Magic cup Problems reviewed: Yes Code(s): E46 - UNSPECIFIED PROTEIN-CALORIE MALNUTRITION (3) JEAN (acute kidney injury) Assessment/Plan: -Resolved -Likely 2/2 to dehydration -monitor trend -Nephrology on board Problems reviewed: Yes Code(s): N17.9 - ACUTE KIDNEY FAILURE, UNSPECIFIED (4) Aortic aneurysm Assessment/Plan: -3.4 cm suprarenal aortic aneurysm, monitor for now Problems reviewed: Yes Code(s): I71.9 - AORTIC ANEURYSM OF UNSPECIFIED SITE, WITHOUT RUPTURE (5) Compression fracture Assessment/Plan: -Neurosurgery consult -Pain management- Acetaminophen 650 mg po Q4H PRN for pain 1-5 Dilaudid 2 mg po Q4H PRN for pain 6-10 -Gabapentin 200 mg po TID Problems reviewed: Yes Code(s): GRE2664 - (6) Hypercalcemia Assessment/Plan: -Trending down -Seen by Nephrology -PTH at 11 Problems reviewed: Yes Code(s): E83.52 - HYPERCALCEMIA (7) Metastatic cancer Assessment/Plan: -Oncology consult appreciated -Immunofixation/SPEP kappa free light chains quant elevated -PSA 120 -s/p bone biopsy- results will be addressed outpatient -Needs Prostate biopsy outpatient -Instructed pt's HCP -[facility]vy to f/u with urology and oncology outpatient Problems reviewed: Yes Code(s): C79.9 - SECONDARY MALIGNANT NEOPLASM OF UNSPECIFIED SITE Qualifiers: Area of secondary neoplastic involvement: bone Qualified Code(s): C79.51 - Secondary malignant neoplasm of bone (8) Frequent falls Assessment/Plan: -Physical therapy -Safety precautions Problems reviewed: Yes Code(s): R29.6 - REPEATED FALLS Assessment/Plan See problem list Spoke to Wang Haynes, who is the health care proxy at [phone] Constitutional: Yes: No Distress, Calm, Cachectic Cardiovascular: Yes: Regular Rate and Rhythm Respiratory: Yes: Regular, CTA Bilaterally Gastrointestinal: Yes: Normal Bowel Sounds, Soft Renal/: Yes: WNL Musculoskeletal: Yes: Muscle Weakness Extremities: Yes: WNL Edema: No Peripheral Pulses WNL: Yes Neurological: Yes: Alert, Oriented Psychiatric: Yes: Alert, Oriented Labs: CBC, BMP 04/30/20 09:00 04/30/20 09:00 Discharge Summary Problems reviewed: Yes Reason For Visit: ACUTE KIDNEY INJURY SHORTNESS OF BREATH HYPERCAL Current Active Problems JEAN (acute kidney injury) (Acute) Aortic aneurysm (Acute) Bone metastases (Acute) Cachexia (Acute) Compression fracture (Acute) Elevated PSA (Acute) Frequent falls (Acute) Hypercalcemia (Acute) Lactic acidosis (Acute) Malnutrition (Acute) Metastatic cancer (Acute) Thrombocytopenia (Acute) Condition: Stable - Instructions Diet, Activity, Other Instructions: -Please call Urology Dr Yolande Ni to follow up and arrange for prostate biopsy -Please Follow up with Oncology Dr Magui Olivas MD -Please follow up with Nephrology Dr Lalo Wang MD Referrals: Last Lanier MD [Staff Physician] - Chau Wray MD [Primary Care Provider] - Magui Poole MD [Staff Physician] - Yvette Wang MD [Staff Physician] - Disposition: [facility]NS/HOME HEALTH CARE - Home Medications Comprehensive Discharge Medication List: Ambulatory Orders Albuterol Sulfate Inhaler - [Ventolin HFA Inhaler -] 1 - 2 inh PO PRN PRN 04/25/20 Rosuvastatin Calcium [Crestor] 10 mg PO DAILY 04/25/20 Salmeterol/Fluticasone [Advair 100Mcg/50Mcg -] 250 mg PO BID 04/25/20 Tamsulosin HCl [Flomax] 0.4 mg PO DAILY 04/25/20 Tiotropium [place] [Spiriva Respimat] 4 gm IH DAILY 04/25/20 Acetaminophen 1,000 mg PO Q6H PRN #240 tablet 05/01/20 Albuterol Sulfate Inhaler - [Ventolin HFA Inhaler -] 2 puff IH Q4H PRN #1 inhaler 05/01/20 Docusate Sodium [Colace -] 100 mg PO BID PRN #60 capsule 05/01/20 Gabapentin [Neurontin -] 200 mg PO TID #180 capsule 05/01/20 Magnesium Oxide [Mag-Ox -] 400 mg PO BID #60 tablet 05/01/20 Mirtazapine [Remeron -] 7.5 mg PO HS #30 tablet 05/01/20 Multivitamins [Multivit ([facility] Formul[facility])] 1 tab PO DAILY #30 tab 05/01/20 Polyethylene Glycol 3350 [Miralax 119 gm Btl -] 17 gm PO DAILY #1 bottle 05/01/20 Rosuvastatin [Crestor -] 10 mg PO HS #30 tablet 05/01/20 Salmeterol/Fluticasone [Advair 100Mcg/50Mcg -] 1 puff IH BID #1 inhaler 05/01/20 Sennosides [Senna -] 2 tab PO HS #60 tablet 05/01/20 Sitagliptin Phosphate [Januvia -] 50 mg PO DAILY@0700 #30 tablet 05/01/20 Tamsulosin HCl [Flomax -] 0.4 mg PO DAILY@0830 #30 cap.er.24h 05/01/20 Tiotropium [place] [Spiriva Respimat] 2 puff IH DAILY #1 inhaler 05/01/20 oxyCODONE HCL [Roxicodone -] 5 mg PO Q4H PRN #180 tablet MDD 6 05/01/20 traMADol HCL [Ultram -] 50 mg PO Q6H PRN #120 tablet MDD 4 05/01/20 Prescription Drug Monitoring Program (I-STOP) results: I-STOP reviewed and no issues identified
--- NOTE | 2020-05-02 11:25 | PN ---
Progress Note, Physician History of Present Illness: Pt seen and examined at bedside. He is awake and appears comfortable. - Current Medication List Current Medications: Active Medications Acetaminophen (Tylenol -) 1,000 mg PO Q6H PRN PRN Reason: PAIN LEVEL 1 - 3 Last Admin: 05/01/20 16:20 Dose: 1,000 mg Documented by: Albuterol Sulfate (Ventolin Hfa Inhaler -) 2 puff IH Q4H PRN PRN Reason: SHORT OF BREATH/WHEEZING Amino Acids (Prosource No Carb Liquid Pkt) 30 ml PO BID@0800,1730 [facility] Last Admin: 05/02/20 08:27 Dose: 30 ml Documented by: Docusate Sodium (Colace -) 100 mg PO BID PRN PRN Reason: CONSTIPATION Last Admin: 04/30/20 09:32 Dose: 100 mg Documented by: Gabapentin (Neurontin -) 200 mg PO TID [facility] Last Admin: 05/02/20 05:56 Dose: 200 mg Documented by: Heparin Sodium (Porcine) (Heparin -) 5,000 unit SQ BID [facility] Last Admin: 05/02/20 09:29 Dose: 5,000 unit Documented by: Sodium Chloride (Normal Saline -) 1,000 mls @ 42 mls/hr IV ASDIR [facility] Last Admin: 05/01/20 16:19 Dose: Not Given Documented by: Magnesium Oxide (Mag-Ox -) 400 mg PO BID [facility] Last Admin: 05/02/20 09:29 Dose: 400 mg Documented by: Mirtazapine (Remeron -) 7.5 mg PO [facility] Last Admin: 05/01/20 21:49 Dose: 7.5 mg Documented by: Multivitamins/Minerals/Vitamin C (Tab-A-Vit -) 1 tab PO DAILY [facility] Last Admin: 05/02/20 09:28 Dose: 1 tab Documented by: Oxycodone HCl (Roxicodone -) 5 mg PO Q4H PRN PRN Reason: PAIN LEVEL 7 - 10 Last Admin: 05/02/20 08:27 Dose: 5 mg Documented by: Polyethylene Glycol (Miralax (For Daily Use) -) 17 gm PO DAILY [facility] Last Admin: 05/02/20 09:28 Dose: 17 grams Documented by: Rosuvastatin Calcium (Crestor -) 10 mg PO [facility] Last Admin: 05/01/20 21:48 Dose: 10 mg Documented by: Fluticasone/Salmeterol (Advair 100mcg/50mcg -) 1 puff IH BID [facility] Last Admin: 05/02/20 09:29 Dose: 1 puff Documented by: Senna (Senna -) 2 tab PO HS [facility] Last Admin: 05/01/20 21:49 Dose: 2 tab Documented by: Sitagliptin Phosphate (Januvia -) 50 mg PO DAILY@0700 [facility] Last Admin: 05/02/20 06:06 Dose: 50 mg Documented by: Tamsulosin HCl (Flomax -) 0.4 mg PO DAILY@0830 [facility] Last Admin: 05/02/20 08:27 Dose: 0.4 mg Documented by: Tiotropium [place] (Spiriva Respimat) 2 puff IH DAILY [facility] Last Admin: 05/02/20 09:28 Dose: 2 puff Documented by: Tramadol HCl (Ultram -) 50 mg PO Q6H PRN PRN Reason: PAIN LEVEL 4 - 6 Last Admin: 05/01/20 11:03 Dose: 50 mg Documented by: - Objective Vital Signs: Vital Signs Temperature 98.1 F 05/02/20 08:21 Pulse Rate 96 H 05/02/20 08:21 Respiratory Rate 18 05/02/20 08:21 Blood Pressure 140/62 05/02/20 08:21 O2 Sat by Pulse Oximetry (%) 97 05/02/20 08:21 Constitutional: Yes: Calm Eyes: Yes: Conjunctiva Clear HENT: Yes: Atraumatic Neck: Yes: Supple Cardiovascular: Yes: S1, S2 Respiratory: Yes: CTA Bilaterally Gastrointestinal: Yes: Normal Bowel Sounds, Soft Genitourinary: Yes: WNL Musculoskeletal: Yes: WNL Edema: No Neurological: Yes: Oriented Psychiatric: Yes: Oriented Labs: CBC, BMP 04/30/20 09:00 04/30/20 09:00 INR, PTT INR 1.24 (0.83-1.09) H 04/26/20 04:45 Assessment/Plan Current Medications Generic Name Dose Route Start Last Admin Trade Name Freq PRN Reason Stop Dose Admin Acetaminophen 1,000 mg 05/01/20 14:55 05/01/20 16:20 Tylenol - PO 1,000 mg Q6H PRN Administration PAIN LEVEL 1 - 3 Albuterol Sulfate 2 puff 04/25/20 21:40 Ventolin Hfa Inhaler - IH Q4H PRN SHORT OF BREATH/WHEEZING Amino Acids 30 ml 04/30/20 17:30 05/02/20 08:27 Prosource No Carb Liquid Pkt PO 30 ml BID@0800,1730 [facility] Administration Docusate Sodium 100 mg 04/25/20 21:01 04/30/20 09:32 Colace - PO 100 mg BID PRN Administration CONSTIPATION Gabapentin 200 mg 05/01/20 13:11 05/02/20 05:56 Neurontin - PO 200 mg TID [facility] Administration Heparin Sodium (Porcine) 5,000 unit 04/29/20 22:00 05/02/20 09:29 Heparin - SQ 5,000 unit BID [facility] Administration Sodium Chloride 1,000 mls @ 42 mls/hr 04/30/20 15:15 05/01/20 16:19 Normal Saline - IV Not Given ASDIR [facility] Magnesium Oxide 400 mg 04/26/20 22:00 05/02/20 09:29 Mag-Ox - PO 400 mg BID [facility] Administration Mirtazapine 7.5 mg 04/27/20 22:00 05/01/20 21:49 Remeron - PO 7.5 mg HS [facility] Administration Multivitamins/Minerals/Vitamin C 1 tab 04/27/20 11:00 05/02/20 09:28 Tab-A-Vit - PO 1 tab DAILY [facility] Administration Oxycodone HCl 5 mg 04/30/20 18:14 05/02/20 08:27 Roxicodone - PO 5 mg Q4H PRN Administration PAIN LEVEL 7 - 10 Polyethylene Glycol 17 gm 04/27/20 11:15 05/02/20 09:28 Miralax (For Daily Use) - PO 17 grams DAILY [facility] Administration Rosuvastatin Calcium 10 mg 04/25/20 22:00 05/01/20 21:48 Crestor - PO 10 mg HS [facility] Administration Fluticasone/Salmeterol 1 puff 04/25/20 22:00 05/02/20 09:29 Advair 100mcg/50mcg - IH 1 puff BID [facility] Administration Senna 2 tab 04/30/20 22:00 05/01/20 21:49 Senna - PO 2 tab HS [facility] Administration Sitagliptin Phosphate 50 mg 04/28/20 07:00 05/02/20 06:06 Januvia - PO 50 mg DAILY@0700 [facility] Administration Tamsulosin HCl 0.4 mg 04/26/20 08:30 05/02/20 08:27 Flomax - PO 0.4 mg DAILY@0830 [facility] Administration Tiotropium [place] 2 puff 04/26/20 10:00 05/02/20 09:28 Spiriva Respimat IH 2 puff DAILY [facility] Administration Tramadol HCl 50 mg 04/30/20 18:14 05/01/20 11:03 Ultram - PO 50 mg Q6H PRN Administration PAIN LEVEL 4 - 6 Impression 1. mamie 2. hypercalcemia 3. hld 4. ILD 5. htn 6. hypokalemia 7. hypomagnesemia 8. DM 9. lactic acidosis Plan - no new labs - will need outpt follow up - follow up biopsy report - if not discharged check bmp in am - oncology input appreciated - volume status is stable
[2020-05-02] MEDS: SODIUM CHLORIDE 1,000 ML IV SCH (17:45)
[2020-05-02] MEDS: SENNOSIDES 8.6MG TABLET (FP) PO SCH (21:36)
[2020-05-02] MEDS: ROSUVASTATIN CA 10 MG TABLET (FP) PO SCH (21:37)
[2020-05-02] MEDS: MIRTAZAPINE 15 MG TABLET (FP) PO SCH (21:37)
[2020-05-03] MEDS: oxyCODONE HCL 5 MG TABLET PO PRN ×3 (01:47→21:08)
[2020-05-03] MEDS: sitaGLIPtin PHOSPHATE 50 MG TABLET PO SCH (06:23)
[2020-05-03] MEDS: GABAPENTIN 100 MG CAPSULE PO SCH ×3 (06:23→21:08)
[2020-05-03 09:09] LABS: BLOOD UREA NITROGEN 11.7 mg/dL (7-18); CALCIUM 8.6 mg/dL (8.5-10.1); CREATININE 0.8 mg/dL (0.55-1.3); POTASSIUM 4.3 mmol/L (3.5-5.1)
[2020-05-03] MEDS ORDERED: PT OWN MED DRAWER 7, Y5N ONE (09:34)
[2020-05-03] MEDS: AMINO ACIDS/PROTEIN HYDROLYS 30 ML LIQUID.PKT PO SCH ×2 (09:36→17:31)
[2020-05-03] MEDS: TAMSULOSIN HCL 0.4 MG CAP PO SCH (09:36)
[2020-05-03] MEDS: HEPARIN NA (PORCINE) 5,000 UNITS/ML 1ML VIAL SQ SCH ×2 (09:36→21:10)
[2020-05-03] MEDS: MULTIVITAMINS (DAILY MVI) TABLET (FP) PO SCH (09:37)
[2020-05-03] MEDS: MAGNESIUM OXIDE 400 MG TABLET (FP) PO SCH ×2 (09:37→21:08)
[2020-05-03] MEDS: TIOTROPIUM BROMIDE 2.5 MCG (SPIRIVA) RESPIMAT INHALER IH SCH (09:38)
[2020-05-03] MEDS: FLUTICASONE/SALMETEROL 100 MCG/50 MCG DISKUS IH SCH ×2 (09:38→21:10)
[2020-05-03] MEDS: POLYETHYLENE GLYCOL 3350 119 GM BTL PO SCH (09:41)
--- NOTE | 2020-05-03 11:07 | DS ---
Physical Examination Vital Signs: Vital Signs Temperature 97.8 F 05/03/20 08:54 Pulse Rate 89 05/03/20 08:54 Respiratory Rate 18 05/03/20 08:54 Blood Pressure 133/69 05/03/20 08:54 O2 Sat by Pulse Oximetry (%) 93 L 05/03/20 08:54 Findings/Remarks: 74 YO man with Mhx of HTN, DM, HLD, ILD, BPH and Aortic Aneurysm s/p repair 1 year ago, presented to ED after his niece found him on floor and unable to get up. Pt reported that he started having pain and weakness all over his body over the last month, associated with decreased appetite and wt loss (reported 20lbs loss). His symptoms became worse over the last 5 days, and last night he was feeling so weak, he sat on floor and couldn't get up till his niece came to check on him and found him on floor. He denies LOC, dizziness, change in urine or bowel habits. No cough or fever reported. Upon evaluation in the ER, pt was noted to have: CT C Spine 04/25/20: Multilevel degenerative disc changes are noted. Mild multilevel patchy osseous low-attenuation is seen which could be on the basis of osteoporosis. Neoplastic disease is less likely. Comparison with prior CT/MRI exams is suggested if available from a different facility. CT head: A small curvilinear hypodense focus is noted within the left basal ganglia possibly representing a chronic infarct versus a nonspecific mildly dilated vessel. Correlation with nonemergent contrast enhanced MRI or CT is suggested. Several small bilateral frontal subcortical white matter hypodense foci are seen which may represent chronic infarct versus chronic microvascular ischemic changes. Mild periventricular chronic microvascular ischemic changes are noted. There is mild deformity of the medial wall of the right orbit consistent with a fracture which is probably chronic. Correlate clinically. CTAP: 1.An expansile approximately 5 x 4 cm osteolytic lesion is seen involving the right iliac bone ventrally with an extraosseous soft tissue component. 2.Smaller less prominent nonexpansile osteolytic lesions are seen within the lumbosacral spine and bilateral iliac bones. 3.Mild pathologic L1 vertebral body compression fracture with minimal bony retropulsion. 4.There are probable small osteolytic lesions within the femoral heads and necks bilaterally. Several enlarged right internal iliac lymph nodes are noted within the lower pelvis the most prominent measuring 1.7 cm in diameter. 5. There is mild fusiform aneurysmal dilatation of the suprarenal aorta with a 3.4 cm diameter. 6. Incidental left renal cortical cysts. 7. Moderate prostate enlargement. 8. Mild diffuse urinary bladder wall thickening is noted probably on the basis of chronic outlet obstruction. CT Chest: 1. In comparison to a previous CT exam of 07/12/2013 interval development of multilevel thoracic vertebral body osteolytic lesions are noted. 2. Minimal T5 and mild T6 pathologic vertebral body compression fractures are noted. There is mild bony retropulsion at the T6 level. 3. Prominently increased fibrosis within the upper and lower lung mondragon bilaterally, left more than right. 4. Interval development of several mildly enlarged subcarinal mediastinal lymph nodes is noted. Development of several multilevel bilateral rib osteolytic lesions are seen suggestive of neoplastic disease. 5. Status post interval median sternotomy, Allowing for partially obscuring metallic artifact there are possible small osteolytic lesions within the sternal body. 6. As on prior exam there is fusiform aneurysmal dilatation of the aortic arch and descending aorta with a 3.7 cm diameter. Currently c/o of pain 10/10 with no relief with morphine and tylenol C/O weight loss, unsure how many lbs, Last saw PCP 2 weeks ago,c/o of generalized pain, more prominently right sided chest pain. 04/30/20: NAD PSA elevated to 120, wound need either right pelvic lymph node biopsy or bone marrow biopsy Oncology and neurology input appreciated 05/01/20: Intermittent pain controlled by oxycodone+ tramadol + acetaminophen 05/02/20: NAD, in chair SpO2 dropped down to 88 on RA upon ambulation. Shuffling gait, risk for fall. Pt would benefit from bedside commode, transport chair, rolling walker and a shower chair due to decreased mobility, to decreased risk for fall. (1) Cachexia Problems reviewed: Yes Code(s): R64 - CACHEXIA (2) Malnutrition Assessment/Plan: -Started multivitamin -Started mirtazapine 7.5 mg po HS -Ensure BID + Magic cup Problems reviewed: Yes Code(s): E46 - UNSPECIFIED PROTEIN-CALORIE MALNUTRITION (3) JEAN (acute kidney injury) Assessment/Plan: -Resolved -Likely 2/2 to dehydration -monitor trend -Nephrology on board Problems reviewed: Yes Code(s): N17.9 - ACUTE KIDNEY FAILURE, UNSPECIFIED (4) Aortic aneurysm Assessment/Plan: -3.4 cm suprarenal aortic aneurysm, monitor for now Problems reviewed: Yes Code(s): I71.9 - AORTIC ANEURYSM OF UNSPECIFIED SITE, WITHOUT RUPTURE (5) Compression fracture Assessment/Plan: -Neurosurgery consult -Pain management- Acetaminophen 650 mg po Q4H PRN for pain 1-5 Dilaudid 2 mg po Q4H PRN for pain 6-10 -Gabapentin 200 mg po TID Problems reviewed: Yes Code(s): WAF6945 - (6) Hypercalcemia Assessment/Plan: -Trending down -Seen by Nephrology -PTH at 11 Problems reviewed: Yes Code(s): E83.52 - HYPERCALCEMIA (7) Metastatic cancer Assessment/Plan: -Oncology consult appreciated -Immunofixation/SPEP kappa free light chains quant elevated -PSA 120 -s/p bone biopsy- results will be addressed outpatient -Needs Prostate biopsy outpatient -Instructed pt's HCP -I[facility] to f/u with urology and oncology outpatient Problems reviewed: Yes Code(s): C79.9 - SECONDARY MALIGNANT NEOPLASM OF UNSPECIFIED SITE Qualifiers: Area of secondary neoplastic involvement: bone Qualified Code(s): C79.51 - Secondary malignant neoplasm of bone (8) Frequent falls Assessment/Plan: -Physical therapy -Safety precautions Problems reviewed: Yes Code(s): R29.6 - REPEATED FALLS (9) Hypoxia: 2/2 to shallow breathing due to rib pain Educated on Splinting techniques + abdominal binder in use encouraged deep breathing SpO2 88% on ambulation, qualifies for home O2 Assessment/Plan See problem list Constitutional: Yes: No Distress, Calm, Cachectic Cardiovascular: Yes: Regular Rate and Rhythm Respiratory: Yes: Regular, CTA Bilaterally, On Nasal O2 Gastrointestinal: Yes: Normal Bowel Sounds, Soft Renal/: Yes: WNL Musculoskeletal: Yes: Muscle Weakness Edema: No Peripheral Pulses WNL: Yes Neurological: Yes: Alert, Oriented Psychiatric: Yes: Alert, Oriented Labs: CBC, BMP 04/30/20 09:00 05/03/20 07:25 Discharge Summary Problems reviewed: Yes Reason For Visit: ACUTE KIDNEY INJURY SHORTNESS OF BREATH HYPERCAL Current Active Problems JEAN (acute kidney injury) (Acute) Aortic aneurysm (Acute) Bone metastases (Acute) Cachexia (Acute) Compression fracture (Acute) Elevated PSA (Acute) Frequent falls (Acute) Hypercalcemia (Acute) Lactic acidosis (Acute) Malnutrition (Acute) Metastatic cancer (Acute) Thrombocytopenia (Acute) Condition: Stable - Instructions Diet, Activity, Other Instructions: -Please call Urology Dr Yolande Ni to follow up and arrange for prostate biopsy -Please Follow up with Oncology Dr Magui Olivas MD -Please follow up with Nephrology Dr Lalo Wang MD Referrals: Last Lanier MD [Staff Physician] - Chau Wray MD [Primary Care Provider] - Magui Poole MD [Staff Physician] - Yvette Wang MD [Staff Physician] - Disposition: [facility]/HOME HEALTH CARE - Home Medications Comprehensive Discharge Medication List: Ambulatory Orders Albuterol Sulfate Inhaler - [Ventolin HFA Inhaler -] 1 - 2 inh PO PRN PRN 04/25/20 Rosuvastatin Calcium [Crestor] 10 mg PO DAILY 04/25/20 Salmeterol/Fluticasone [Advair 100Mcg/50Mcg -] 250 mg PO BID 04/25/20 Tamsulosin HCl [Flomax] 0.4 mg PO DAILY 04/25/20 Tiotropium [place] [Spiriva Respimat] 4 gm IH DAILY 04/25/20 Acetaminophen 1,000 mg PO Q6H PRN #240 tablet 05/01/20 Albuterol Sulfate Inhaler - [Ventolin HFA Inhaler -] 2 puff IH Q4H PRN #1 inhaler 05/01/20 Docusate Sodium [Colace -] 100 mg PO BID PRN #60 capsule 05/01/20 Gabapentin [Neurontin -] 200 mg PO TID #180 capsule 05/01/20 Magnesium Oxide [Mag-Ox -] 400 mg PO BID #60 tablet 05/01/20 Mirtazapine [Remeron -] 7.5 mg PO HS #30 tablet 05/01/20 Multivitamins [Multivit ([facility])] 1 tab PO DAILY #30 tab 05/01/20 Polyethylene Glycol 3350 [Miralax 119 gm Btl -] 17 gm PO DAILY #1 bottle 0 05/01/20 Rosuvastatin [Crestor -] 10 mg PO HS #30 tablet 05/01/20 Salmeterol/Fluticasone [Advair 100Mcg/50Mcg -] 1 puff IH BID #1 inhaler 05/01/20 Sennosides [Senna -] 2 tab PO HS #60 tablet 05/01/20 Sitagliptin Phosphate [Januvia -] 50 mg PO DAILY@0700 #30 tablet 05/01/20 Tamsulosin HCl [Flomax -] 0.4 mg PO DAILY@0830 #30 cap.er.24h 05/01/20 Tiotropium [place] [Spiriva Respimat] 2 puff IH DAILY #1 inhaler 05/01/20 oxyCODONE HCL [Roxicodone -] 5 mg PO Q4H PRN #180 tablet MDD 6 05/01/20 traMADol HCL [Ultram -] 50 mg PO Q6H PRN #120 tablet MDD 4 05/01/20 Prescription Drug Monitoring Program (I-STOP) results: I-STOP reviewed and no issues identified
[2020-05-03] MEDS ORDERED: MAGNESIUM HYDROX 2400MG/30ML ORAL SUSPENSION 30 ML CUP PO ONE (13:15)
[2020-05-03] MEDS: traMADol HCL 50 MG TABLET PO PRN (13:16)
--- NOTE | 2020-05-03 14:37 | PN ---
Progress Note, Physician History of Present Illness: Pt seen and examined at bedside. He is awake and appears comfortable. - Current Medication List Current Medications: Active Medications Acetaminophen (Tylenol -) 1,000 mg PO Q6H PRN PRN Reason: PAIN LEVEL 1 - 3 Last Admin: 05/01/20 16:20 Dose: 1,000 mg Documented by: Albuterol Sulfate (Ventolin Hfa Inhaler -) 2 puff IH Q4H PRN PRN Reason: SHORT OF BREATH/WHEEZING Amino Acids (Prosource No Carb Liquid Pkt) 30 ml PO BID@0800,1730 [facility] Last Admin: 05/03/20 09:36 Dose: 30 ml Documented by: Docusate Sodium (Colace -) 100 mg PO BID PRN PRN Reason: CONSTIPATION Last Admin: 04/30/20 09:32 Dose: 100 mg Documented by: Gabapentin (Neurontin -) 200 mg PO TID [facility] Last Admin: 05/03/20 13:16 Dose: 200 mg Documented by: Heparin Sodium (Porcine) (Heparin -) 5,000 unit SQ BID [facility] Last Admin: 05/03/20 09:36 Dose: 5,000 unit Documented by: Sodium Chloride (Normal Saline -) 1,000 mls @ 42 mls/hr IV ASDIR [facility] Last Admin: 05/02/20 17:45 Dose: 42 mls/hr Documented by: Magnesium Oxide (Mag-Ox -) 400 mg PO BID [facility] Last Admin: 05/03/20 09:37 Dose: 400 mg Documented by: Mirtazapine (Remeron -) 7.5 mg PO [facility] Last Admin: 05/02/20 21:37 Dose: 7.5 mg Documented by: Multivitamins/Minerals/Vitamin C (Tab-A-Vit -) 1 tab PO DAILY [facility] Last Admin: 05/03/20 09:37 Dose: 1 tab Documented by: Oxycodone HCl (Roxicodone -) 5 mg PO Q4H PRN PRN Reason: PAIN LEVEL 7 - 10 Last Admin: 05/03/20 09:37 Dose: 5 mg Documented by: Polyethylene Glycol (Miralax (For Daily Use) -) 17 gm PO DAILY [facility] Last Admin: 05/03/20 09:41 Dose: 17 grams Documented by: Rosuvastatin Calcium (Crestor -) 10 mg PO [facility] Last Admin: 05/02/20 21:37 Dose: 10 mg Documented by: Fluticasone/Salmeterol (Advair 100mcg/50mcg -) 1 puff IH BID [facility] Last Admin: 05/03/20 09:38 Dose: 1 puff Documented by: Senna (Senna -) 2 tab PO HS [facility] Last Admin: 05/02/20 21:36 Dose: 2 tab Documented by: Sitagliptin Phosphate (Januvia -) 50 mg PO DAILY@0700 [facility] Last Admin: 05/03/20 06:23 Dose: 50 mg Documented by: Tamsulosin HCl (Flomax -) 0.4 mg PO DAILY@0830 [facility] Last Admin: 05/03/20 09:36 Dose: 0.4 mg Documented by: Tiotropium [place] (Spiriva Respimat) 2 puff IH DAILY [facility] Last Admin: 05/03/20 09:38 Dose: 2 puff Documented by: Tramadol HCl (Ultram -) 50 mg PO Q6H PRN PRN Reason: PAIN LEVEL 4 - 6 Last Admin: 05/03/20 13:16 Dose: 50 mg Documented by: - Objective Vital Signs: Vital Signs Temperature 97.8 F 05/03/20 08:54 Pulse Rate 89 05/03/20 08:54 Respiratory Rate 18 05/03/20 08:54 Blood Pressure 133/69 05/03/20 08:54 O2 Sat by Pulse Oximetry (%) 93 L 05/03/20 09:00 Constitutional: Yes: Calm Eyes: Yes: Conjunctiva Clear HENT: Yes: Atraumatic Neck: Yes: Supple Cardiovascular: Yes: S1, S2 Gastrointestinal: Yes: Normal Bowel Sounds Genitourinary: Yes: WNL Musculoskeletal: Yes: WNL Edema: No Neurological: Yes: Oriented Psychiatric: Yes: Oriented Labs: CBC, BMP 04/30/20 09:00 05/03/20 07:25 INR, PTT INR 1.24 (0.83-1.09) H 04/26/20 04:45 Assessment/Plan Current Medications Generic Name Dose Route Start Last Admin Trade Name Freq PRN Reason Stop Dose Admin Acetaminophen 1,000 mg 05/01/20 14:55 05/01/20 16:20 Tylenol - PO 1,000 mg Q6H PRN Administration PAIN LEVEL 1 - 3 Albuterol Sulfate 2 puff 04/25/20 21:40 Ventolin Hfa Inhaler - IH Q4H PRN SHORT OF BREATH/WHEEZING Amino Acids 30 ml 04/30/20 17:30 05/03/20 09:36 Prosource No Carb Liquid Pkt PO 30 ml BID@0800,1730 [facility] Administration Docusate Sodium 100 mg 04/25/20 21:01 04/30/20 09:32 Colace - PO 100 mg BID PRN Administration CONSTIPATION Gabapentin 200 mg 05/01/20 13:11 05/03/20 13:16 Neurontin - PO 200 mg TID [facility] Administration Heparin Sodium (Porcine) 5,000 unit 04/29/20 22:00 05/03/20 09:36 Heparin - SQ 5,000 unit BID [facility] Administration Sodium Chloride 1,000 mls @ 42 mls/hr 04/30/20 15:15 05/02/20 17:45 Normal Saline - IV 42 mls/hr ASDIR [facility] Administration Magnesium Oxide 400 mg 04/26/20 22:00 05/03/20 09:37 Mag-Ox - PO 400 mg BID [facility] Administration Mirtazapine 7.5 mg 04/27/20 22:00 05/02/20 21:37 Remeron - PO 7.5 mg HS [facility] Administration Multivitamins/Minerals/Vitamin C 1 tab 04/27/20 11:00 05/03/20 09:37 Tab-A-Vit - PO 1 tab DAILY [facility] Administration Oxycodone HCl 5 mg 04/30/20 18:14 05/03/20 09:37 Roxicodone - PO 5 mg Q4H PRN Administration PAIN LEVEL 7 - 10 Polyethylene Glycol 17 gm 04/27/20 11:15 05/03/20 09:41 Miralax (For Daily Use) - PO 17 grams DAILY [facility] Administration Rosuvastatin Calcium 10 mg 04/25/20 22:00 05/02/20 21:37 Crestor - PO 10 mg HS [facility] Administration Fluticasone/Salmeterol 1 puff 04/25/20 22:00 05/03/20 09:38 Advair 100mcg/50mcg - IH 1 puff BID [facility] Administration Senna 2 tab 04/30/20 22:00 05/02/20 21:36 Senna - PO 2 tab HS [facility] Administration Sitagliptin Phosphate 50 mg 04/28/20 07:00 05/03/20 06:23 Januvia - PO 50 mg DAILY@0700 [facility] Administration Tamsulosin HCl 0.4 mg 04/26/20 08:30 05/03/20 09:36 Flomax - PO 0.4 mg DAILY@0830 [facility] Administration Tiotropium [place] 2 puff 04/26/20 10:00 05/03/20 09:38 Spiriva Respimat IH 2 puff DAILY [facility] Administration Tramadol HCl 50 mg 04/30/20 18:14 05/03/20 13:16 Ultram - PO 50 mg Q6H PRN Administration PAIN LEVEL 4 - 6 Impression 1. mamie 2. hypercalcemia 3. hld 4. ILD 5. htn 6. hypokalemia 7. hypomagnesemia 8. DM 9. lactic acidosis Plan - albs reviewed - lytes are stable - outpt follow up - follow up biopsy report - oncology input appreciated - volume status is stable
[2020-05-03] MEDS: SODIUM CHLORIDE 1,000 ML IV SCH (17:31)
[2020-05-03] MEDS: SENNOSIDES 8.6MG TABLET (FP) PO SCH (21:08)
[2020-05-03] MEDS: ROSUVASTATIN CA 10 MG TABLET (FP) PO SCH (21:09)
[2020-05-03] MEDS: MIRTAZAPINE 15 MG TABLET (FP) PO SCH (21:09)
[2020-05-04] MEDS: traMADol HCL 50 MG TABLET PO PRN ×2 (01:29→09:21)
[2020-05-04] MEDS: oxyCODONE HCL 5 MG TABLET PO PRN (05:30)
[2020-05-04] MEDS: GABAPENTIN 100 MG CAPSULE PO SCH (05:31)
[2020-05-04] MEDS: sitaGLIPtin PHOSPHATE 50 MG TABLET PO SCH (06:24)
[2020-05-04] MEDS: TAMSULOSIN HCL 0.4 MG CAP PO SCH (09:19)
[2020-05-04] MEDS: MULTIVITAMINS (DAILY MVI) TABLET (FP) PO SCH (09:19)
[2020-05-04] MEDS: FLUTICASONE/SALMETEROL 100 MCG/50 MCG DISKUS IH SCH (09:19)
[2020-05-04] MEDS: AMINO ACIDS/PROTEIN HYDROLYS 30 ML LIQUID.PKT PO SCH (09:19)
[2020-05-04] MEDS: HEPARIN NA (PORCINE) 5,000 UNITS/ML 1ML VIAL SQ SCH (09:20)
[2020-05-04] MEDS: MAGNESIUM OXIDE 400 MG TABLET (FP) PO SCH (09:20)
[2020-05-04] MEDS: TIOTROPIUM BROMIDE 2.5 MCG (SPIRIVA) RESPIMAT INHALER IH SCH (09:21)
[2020-05-04] MEDS: POLYETHYLENE GLYCOL 3350 119 GM BTL PO SCH (09:21)
--- NOTE | 2020-05-04 11:47 | PN ---
Progress Note, Physician Chief Complaint: Weakness Fall Weight loss SOB Multiple Vertebral fractures History of Present Illness: 74 YO man with Mhx of HTN, DM, HLD, ILD, BPH and Aortic Aneurysm s/p repair 1 year ago, presented to ED after his niece found him on floor and unable to get up. Pt reported that he started having pain and weakness all over his body over the last month, associated with decreased appetite and wt loss (reported 20lbs loss). His symptoms became worse over the last 5 days, and last night he was feeling so weak, he sat on floor and couldn't get up till his niece came to check on him and found him on floor. He denies LOC, dizziness, change in urine or bowel habits. No cough or fever reported. Upon evaluation in the ER, pt was noted to have: CT C Spine 04/25/20: Multilevel degenerative disc changes are noted. Mild multilevel patchy osseous low-attenuation is seen which could be on the basis of osteoporosis. Neoplastic disease is less likely. Comparison with prior CT/MRI exams is suggested if available from a different facility. CT head: A small curvilinear hypodense focus is noted within the left basal ganglia possibly representing a chronic infarct versus a nonspecific mildly dilated vessel. Correlation with nonemergent contrast enhanced MRI or CT is suggested. Several small bilateral frontal subcortical white matter hypodense foci are seen which may represent chronic infarct versus chronic microvascular ischemic c hanges. Mild periventricular chronic microvascular ischemic changes are noted. There is mild deformity of the medial wall of the right orbit consistent with a fracture which is probably chronic. Correlate clinically. CTAP: 1.An expansile approximately 5 x 4 cm osteolytic lesion is seen involving the right iliac bone ventrally with an extraosseous soft tissue component. 2.Smaller less prominent nonexpansile osteolytic lesions are seen within the lumbosacral spine and bilateral iliac bones. 3.Mild pathologic L1 vertebral body compression fracture with minimal bony r etropulsion. 4.There are probable small osteolytic lesions within the femoral heads and necks bilaterally. Several enlarged right internal iliac lymph nodes are noted within the lower pelvis the most prominent measuring 1.7 cm in diameter. 5. There is mild fusiform aneurysmal dilatation of the suprarenal aorta with a 3.4 cm diameter. 6. Incidental left renal cortical cysts. 7. Moderate prostate enlargement. 8. Mild diffuse urinary bladder wall thickening is noted probably on the basis of chronic outlet obstruction. CT Chest: 1. In comparison to a previous CT exam of 07/12/2013 interval development of multilevel thoracic vertebral body osteolytic lesions are noted. 2. Minimal T5 and mild T6 pathologic vertebral body compression fractures are noted. There is mild bony retropulsion at the T6 level. 3. Prominently increased fibrosis within the upper and lower lung mondragno bilaterally, left more than right. 4. Interval development of several mildly enlarged subcarinal mediastinal lymph nodes is noted. Development of several multilevel bilateral rib osteolytic lesions are seen suggestive of neoplastic disease. 5. Status post interval median sternotomy, Allowing for partially obscuring metallic artifact there are possible small osteolytic lesions within the sternal body. 6. As on prior exam there is fusiform aneurysmal dilatation of the aortic arch and descending aorta with a 3.7 cm diameter. Currently c/o of pain 10/10 with no relief with morphine and tylenol C/O weight loss, unsure how many lbs, Last saw PCP 2 weeks ago,c/o of generalized pain, more prominently right sided chest pain. 04/30/20: NAD PSA elevated to 120, wound need either right pelvic lymph node biopsy or bone marrow biopsy Oncology and neurology input appreciated 05/01/20: Intermittent pain controlled by oxycodone+ tramadol + acetaminophen 05/04/20:P Awaiting D/C - Current Medication List Current Medications: Active Medications Acetaminophen (Tylenol -) 1,000 mg PO Q6H PRN PRN Reason: PAIN LEVEL 1 - 3 Last Admin: 05/01/20 16:20 Dose: 1,000 mg Documented by: Albuterol Sulfate (Ventolin Hfa Inhaler -) 2 puff IH Q4H PRN PRN Reason: SHORT OF BREATH/WHEEZING Amino Acids (Prosource No Carb Liquid Pkt) 30 ml PO BID@0800,1730 [facility] Last Admin: 05/04/20 09:19 Dose: 30 ml Documented by: Docusate Sodium (Colace -) 100 mg PO BID PRN PRN Reason: CONSTIPATION Last Admin: 04/30/20 09:32 Dose: 100 mg Documented by: Gabapentin (Neurontin -) 200 mg PO TID [facility] Last Admin: 05/04/20 05:31 Dose: 200 mg Documented by: Heparin Sodium (Porcine) (Heparin -) 5,000 unit SQ BID [facility] Last Admin: 05/04/20 09:20 Dose: 5,000 unit Documented by: Sodium Chloride (Normal Saline -) 1,000 mls @ 42 mls/hr IV ASDIR [facility] Last Admin: 05/03/20 17:31 Dose: Not Given Documented by: Magnesium Oxide (Mag-Ox -) 400 mg PO BID [facility] Last Admin: 05/04/20 09:20 Dose: 400 mg Documented by: Mirtazapine (Remeron -) 7.5 mg PO [facility] Last Admin: 05/03/20 21:09 Dose: 7.5 mg Documented by: Multivitamins/Minerals/Vitamin C (Tab-A-Vit -) 1 tab PO DAILY [facility] Last Admin: 05/04/20 09:19 Dose: 1 tab Documented by: Oxycodone HCl (Roxicodone -) 5 mg PO Q4H PRN PRN Reason: PAIN LEVEL 7 - 10 Last Admin: 05/04/20 05:30 Dose: 5 mg Documented by: Polyethylene Glycol (Miralax (For Daily Use) -) 17 gm PO DAILY [facility] Last Admin: 05/04/20 09:21 Dose: 17 grams Documented by: Rosuvastatin Calcium (Crestor -) 10 mg PO [facility] Last Admin: 05/03/20 21:09 Dose: 10 mg Documented by: Fluticasone/Salmeterol (Advair 100mcg/50mcg -) 1 puff IH BID [facility] Last Admin: 05/04/20 09:19 Dose: 1 puff Documented by: Senna (Senna -) 2 tab PO [facility] Last Admin: 05/03/20 21:08 Dose: 2 tab Documented by: Sitagliptin Phosphate (Januvia -) 50 mg PO DAILY@0700 [facility] Last Admin: 05/04/20 06:24 Dose: 50 mg Documented by: Tamsulosin HCl (Flomax -) 0.4 mg PO DAILY@0830 [facility] Last Admin: 05/04/20 09:19 Dose: 0.4 mg Documented by: Tiotropium Louisa (Spiriva Respimat) 2 puff IH DAILY [facility] Last Admin: 05/04/20 09:21 Dose: 2 puff Documented by: Tramadol HCl (Ultram -) 50 mg PO Q6H PRN PRN Reason: PAIN LEVEL 4 - 6 Last Admin: 05/04/20 09:21 Dose: 50 mg Documented by: - Objective Vital Signs: Vital Signs Temperature 97.6 F 05/04/20 06:00 Pulse Rate 87 05/04/20 06:00 Respiratory Rate 20 05/04/20 06:00 Blood Pressure 108/55 L 05/04/20 06:00 O2 Sat by Pulse Oximetry (%) 97 05/04/20 06:00 Constitutional: Yes: No Distress, Calm, Cachectic Cardiovascular: Yes: Regular Rate and Rhythm Respiratory: Yes: Regular, CTA Bilaterally Gastrointestinal: Yes: Normal Bowel Sounds, Soft Genitourinary: Yes: WNL Musculoskeletal: Yes: Muscle Weakness Extremities: Yes: WNL Edema: No Peripheral Pulses WNL: Yes Neurological: Yes: Alert, Oriented Psychiatric: Yes: Alert, Oriented Labs: CBC, BMP 04/30/20 09:00 05/03/20 07:25 INR, PTT INR 1.24 (0.83-1.09) H 04/26/20 04:45 Problem List - Problems (1) Cachexia Problems reviewed: Yes Code(s): R64 - CACHEXIA (2) Malnutrition Assessment/Plan: -Start multivitamin -Start mirtazapine 7.5 mg po HS -Ensure BID + Magic cup Problems reviewed: Yes Code(s): E46 - UNSPECIFIED PROTEIN-CALORIE MALNUTRITION (3) JEAN (acute kidney injury) Assessment/Plan: -Resolved -Likely 2/2 to dehydration -monitor trend -Nephrology on board Problems reviewed: Yes Code(s): N17.9 - ACUTE KIDNEY FAILURE, UNSPECIFIED (4) Aortic aneurysm Assessment/Plan: -3.4 cm suprarenal aortic aneurysm, monitor for now Problems reviewed: Yes Code(s): I71.9 - AORTIC ANEURYSM OF UNSPECIFIED SITE, WITHOUT RUPTURE (5) Compression fracture Assessment/Plan: -Neurosurgery consult -Pain management- Acetaminophen 650 mg po Q4H PRN for pain 1-5 Dilaudid 2 mg po Q4H PRN for pain 6-10 -Start Gabapentin 100 mg po TID -Will get consult from Dr Mark Kohler for pain management Problems reviewed: Yes Code(s): GLD6522 - (6) Hypercalcemia Assessment/Plan: -Trending down -Seen by Nephrology -PTH at 11 Problems reviewed: Yes Code(s): E83.52 - HYPERCALCEMIA (7) Metastatic cancer Assessment/Plan: -Oncology consult appreciated -Immunofixation/SPEP kappa free light chains quant elevated -PSA 120 -s/p bone biopsy- results will be addressed outpatient -Needs Prostate biopsy outpatient -Instructed pt's HCP -Ivy to f/u with urology and oncology outpatient Problems reviewed: Yes Code(s): C79.9 - SECONDARY MALIGNANT NEOPLASM OF UNSPECIFIED SITE Qualifiers: Area of secondary neoplastic involvement: bone Qualified Code(s): C79.51 - Secondary malignant neoplasm of bone (8) Frequent falls Assessment/Plan: -Physical therapy -Safety precautions Problems reviewed: Yes Code(s): R29.6 - REPEATED FALLS Assessment/Plan See problem list Wang Haynes aware of the plan and follow ups outpatient, who is the health care proxy at [phone]
--- NOTE | 2020-05-04 12:37 | PN ---
Progress Note, Physician History of Present Illness: Pt has no complaints. - Objective Vital Signs: Vital Signs Temperature 97.6 F 05/04/20 06:00 Pulse Rate 87 05/04/20 06:00 Respiratory Rate 20 05/04/20 06:00 Blood Pressure 108/55 L 05/04/20 06:00 O2 Sat by Pulse Oximetry (%) 97 05/04/20 06:00 Constitutional: Yes: Calm Eyes: Yes: Conjunctiva Clear HENT: Yes: Atraumatic Cardiovascular: Yes: S1, S2 Respiratory: Yes: CTA Bilaterally Gastrointestinal: Yes: Soft Genitourinary: Yes: WNL Musculoskeletal: Yes: WNL Neurological: Yes: Oriented Psychiatric: Yes: Oriented Labs: CBC, BMP 04/30/20 09:00 05/03/20 07:25 INR, PTT INR 1.24 (0.83-1.09) H 04/26/20 04:45 Assessment/Plan Current Medications Generic Name Dose Route Start Last Admin Trade Name Freq PRN Reason Stop Dose Admin Acetaminophen 1,000 mg 05/01/20 14:55 05/01/20 16:20 Tylenol - PO 1,000 mg Q6H PRN Administration PAIN LEVEL 1 - 3 Albuterol Sulfate 2 puff 04/25/20 21:40 Ventolin Hfa Inhaler - IH Q4H PRN SHORT OF BREATH/WHEEZING Amino Acids 30 ml 04/30/20 17:30 05/03/20 09:36 Prosource No Carb Liquid Pkt PO 30 ml BID@0800,1730 [facility] Administration Docusate Sodium 100 mg 04/25/20 21:01 04/30/20 09:32 Colace - PO 100 mg BID PRN Administration CONSTIPATION Gabapentin 200 mg 05/01/20 13:11 05/03/20 13:16 Neurontin - PO 200 mg TID [facility] Administration Heparin Sodium (Porcine) 5,000 unit 04/29/20 22:00 05/03/20 09:36 Heparin - SQ 5,000 unit BID [facility] Administration Sodium Chloride 1,000 mls @ 42 mls/hr 04/30/20 15:15 05/02/20 17:45 Normal Saline - IV 42 mls/hr ASDIR [facility] Administration Magnesium Oxide 400 mg 04/26/20 22:00 05/03/20 09:37 Mag-Ox - PO 400 mg BID [facility] Administration Mirtazapine 7.5 mg 04/27/20 22:00 05/02/20 21:37 Remeron - PO 7.5 mg HS [facility] Administration Multivitamins/Minerals/Vitamin C 1 tab 04/27/20 11:00 05/03/20 09:37 Tab-A-Vit - PO 1 tab DAILY [facility] Administration Oxycodone HCl 5 mg 04/30/20 18:14 05/03/20 09:37 Roxicodone - PO 5 mg Q4H PRN Administration PAIN LEVEL 7 - 10 Polyethylene Glycol 17 gm 04/27/20 11:15 05/03/20 09:41 Miralax (For Daily Use) - PO 17 grams DAILY [facility] Administration Rosuvastatin Calcium 10 mg 04/25/20 22:00 05/02/20 21:37 Crestor - PO 10 mg HS [facility] Administration Fluticasone/Salmeterol 1 puff 04/25/20 22:00 05/03/20 09:38 Advair 100mcg/50mcg - IH 1 puff BID [facility] Administration Senna 2 tab 04/30/20 22:00 05/02/20 21:36 Senna - PO 2 tab HS [facility] Administration Sitagliptin Phosphate 50 mg 04/28/20 07:00 05/03/20 06:23 Januvia - PO 50 mg DAILY@0700 [facility] Administration Tamsulosin HCl 0.4 mg 04/26/20 08:30 05/03/20 09:36 Flomax - PO 0.4 mg DAILY@0830 [facility] Administration Tiotropium [place] 2 puff 04/26/20 10:00 05/03/20 09:38 Spiriva Respimat IH 2 puff DAILY [facility] Administration Tramadol HCl 50 mg 04/30/20 18:14 05/03/20 13:16 Ultram - PO 50 mg Q6H PRN Administration PAIN LEVEL 4 - 6 Impression 1. mamie 2. hypercalcemia 3. hld 4. ILD 5. htn 6. hypokalemia 7. hypomagnesemia 8. DM 9. lactic acidosis Plan - now new labs - lytes stabilized - renal function stabilized - outpt follow up - follow biopsy
[2020-05-04 13:02] VITALS: BP 131/70; PULSE 90; TEMP 98.1
--- NOTE | 2020-05-04 17:10 | PATH ---
Surgical Pathology Report Patient Name: DAMARIS GORMAN Med. Rec. #: [id number] /Age/Gender: 1945 (Age: 74) / M Account: [id number] Location: [address] [place] [address]/[facility] Taken: 05/01/2020 Received: 05/01/2020 Reported: 05/04/2020 Physicians: Bethany Tafoya M.D. Specimen(s) Received RIGHT ILIAC BONE Clinical History 74-year-old male with history of advanced chronic interstitial lung disease now with numerous lytic bone lesions Final Diagnosis RIGHT ILIAC BONE BIOPSY: HIGH GRADE NEUROENDOCRINE TUMOR, CONSISTENT WITH SMALL CELL CARCINOMA. Comment: The biopsy material is predominantly comprised of round to oval, small to intermediate size cells with hyperchromatic nuclei with inconspicuous nucleoli and a small amount of amphophilic cytoplasm. Immunohistochemical stains performed at [place], [place] ([phone]) and interpreted at [facility] show the tumor cells are positive for AE1/3 keratin with dot-like pattern, TTF1, CD56, Chromogranin A, Synaptophysin, and CD99. The tumor is negative for CK7, Ck20, CD45, S-100, PAX-5, NSE, Desmin, and Vimentin. Ki-67 index is ~50%. The morphologic findings and the immunoprofile are of a high-grade neuroendocrine tumor, consistent with small cell carcinoma. Intradepartmental case reviewed with concordance on diagnosis. This case was discussed with HAILE Barrera of Dr. Birch's office on 05/04/2020. Electronically Signed Magaly Obrien M.D. Gross Description Received in formalin labeled "right iliac bone biopsy," is a 1.0 x 0.7 x 0.1 cm aggregate rossi possible bone fragments. The formalin is filtered and the specimen is entirely submitted in one cassette, following decalcification. /05/01/2020 [facility]05/01/2020
== END 2020-05-04 12:27 | disposition home health service (06) | DRG 478 ==
LOC: JER 12:57 → JERBED 15:04 → J5S 04-26 01:17
PROVIDERS: ADMIT Family Medicine; ATTEND Family Medicine
PROC: 0QB23ZX Excision of Right Pelvic Bone, Percutaneous Approach, Diagnostic (ICD-10-PCS; principal; 2020-04-30)
DX: C79.51 Secondary malignant neoplasm of bone (principal); J84.9 Interstitial pulmonary disease, unspecified; M48.56XA Collapsed vertebra, not elsewhere classified, lumbar region, initial encounter for fracture; N17.9 Acute kidney failure, unspecified; E87.2 Acidosis; E46 Unspecified protein-calorie malnutrition; R64 Cachexia; C80.1 Malignant (primary) neoplasm, unspecified; I10 Essential (primary) hypertension; E11.9 Type 2 diabetes mellitus without complications; E78.5 Hyperlipidemia, unspecified; N40.0 Benign prostatic hyperplasia without lower urinary tract symptoms; E83.52 Hypercalcemia; E87.6 Hypokalemia; E83.42 Hypomagnesemia; Z68.20 Body mass index [BMI] 20.0-20.9, adult; I71.9 Aortic aneurysm of unspecified site, without rupture; R29.6 Repeated falls; D69.6 Thrombocytopenia, unspecified; R62.7 Adult failure to thrive
CPT/HCPCS: 20225; 36415; 70450-TC; 71260-TC; 72125-TC; 74177-TC; 80048; 80053; 81003; 82306; 82550; 82553; 82962; 83036; 83605; 83735; 83880; 83883; 83970; 84100; 84153; 84155; 84165; 84443; 84484; 85025; 85027; 85610; 87040; 87081; 87086; 87899; 88305-TC; 93005; 93010; 94761; 97116-GP; 97162-GP; 99285-25; J0131; J1644; J3480; J3489; U0003

== ENCOUNTER 2020-05-17 07:11 | Day surgery (SDC) | payer OTHER ==
--- OUTSIDE RECORDS SUMMARY | 2020-05-17 07:15 | XMS ---
:1945 Author [facility] Care [facility] Providers Name Role Phone [facility] Unavailable Unavailable Re-disclosure Warning The records that you are about to access may contain information from federally- assisted alcohol or drug abuse programs. If such information is present, then the following federally mandated warning applies: This information has been disclosed to you from records protected by federal confidentiality rules (42 CFR part 2). The federal rules prohibit you from making any further disclosure of this information unless further disclosure is expressly permitted by the written consent of the person to whom it pertains or as otherwise permitted by 42 CFR part 2. A general authorization for the release of medical or other information is NOT sufficient for this purpose. The Federal rules restrict any use of the information to criminally investigate or prosecute any alcohol or drug abuse patient.The records that you are about to access may contain highly sensitive health information, the redisclosure of which is protected by Article 27-F of the [facility] Public Health law. If you continue you may haveaccess to information: Regarding HIV / AIDS; Provided by facilities licensed or operated by the [facility] Office of Mental Health; or Provided by the [facility] Office for People With Developmental Disabilities. If such information is present, then the following [facility] mandated warning applies: This information has been disclosed to you from confidential records which are protected by state law. State law prohibits you from making any further disclosure of this information without the specific written consent of the person to whom it pertains, or as otherwise permitted by law. Any unauthorized further disclosure in violation of state law may result in a fine or halfway sentence or both. A general authorization for the release of medical or other information is NOT sufficient authorization for further disclosure. Encounters Encounter Providers Location Date Indications Data Source(s ) Outpatient Attender: HDSW9 09/20/2019 [facility] ([facility] 01:05:51 PM [facility] [place]) EST Patient admitted. Insurance Providers Payer name Policy type Policy ID Covered Covered alliance party's Policy P joyce / Coverage alliance party ID relationship to [place] [employer] or[employer]ation type [place] [place] [id number] SP [id number] 03 COMPLETE MEDICAID [id number] SP [id number] PRINCESS MEDICARE [id number] SP [id number] SARGENT [id number] SP [id number] HEALTHCARE (MEDICARE) W [id number] 01 [id number] A Results ID Date Data Source [id number] 04/25/2020 04:30:00 PM EDT [facility] Name Value Range Interpretation Description Data Sup porting Code Source(s) Document(s ) SARS [facility] coronavirus 2 RNA This lab was ordered by [facility] and reported by [facility]. Procedure
[2020-05-17 11:49] LABS: BASO % 0.5 % (0-2.0); EOS % 2.6 % (0-4.5); HEMOGLOBIN 10.8 GM/dL (11.7-16.9); LYMPH % 23.7 % (8-40); MCHC 33.6 g/dl (32.0-35.9); MEAN CELL VOLUME 89.3 fl (80-96); MEAN PLT VOLUME 6.9 fl (7.5-11.1); MONO % 6.6 % (3.8-10.2); NEUT % 66.6 % (42.8-82.8); PLATELET COUNT 200 K/MM3 (134-434); RBC 3.59 M/mm3 (4.00-5.60); WHITE BLOOD COUNT 6.9 K/mm3 (4.0-10.0)
[2020-05-17] MEDS ORDERED: DEXAMETHASONE SODIUM PHOSPHATE 10 MG in SODIUM CHLORIDE 50 ML IVPB ONE (12:00)
[2020-05-17] MEDS ORDERED: PALONOSETRON HCL 0.25 MG/5 ML VIAL IVPUSH ONE (12:00)
[2020-05-17 12:19] LABS: ALBUMIN 3.3 g/dl (3.4-5.0); BILIRUBIN,TOTAL 0.4 mg/dL (0.2-1); BLOOD UREA NITROGEN 12.8 mg/dL (7-18); CALCIUM 8.4 mg/dL (8.5-10.1); CREATININE 0.7 mg/dL (0.55-1.3); POTASSIUM 4.1 mmol/L (3.5-5.1); TOT PROT 6.8 g/dl (6.4-8.2)
[2020-05-17] MEDS ORDERED: SODIUM CHLORIDE IVPB ONE ×2 (12:30→13:30)
[2020-05-17] MEDS ORDERED: CARBOPLATIN IVPB ONE ×2 (12:30→13:30)
[2020-05-17] MEDS ORDERED: ETOPOSIDE IV ONE (13:00)
[2020-05-17] MEDS ORDERED: SODIUM CHLORIDE 0.9% IV ONE (13:00)
[2020-05-17 16:27] VITALS: TEMP 98.1
[2020-05-17 17:45] VITALS: BP 124/55; PULSE 79
== END 2020-05-17 17:40 | disposition home or self-care (01) ==
LOC: JONCCHEMO 07:11
PROVIDERS: ATTEND Internal Medicine Hematology & Oncology
PROC: 3E03305 Introduction of Other Antineoplastic into Peripheral Vein, Percutaneous Approach (ICD-10-PCS; principal; 2020-05-17)
PROC: 3E033GC Introduction of Other Therapeutic Substance into Peripheral Vein, Percutaneous Approach (ICD-10-PCS; 2020-05-17)
DX: Z51.11 Encounter for antineoplastic chemotherapy (principal); C34.90 Malignant neoplasm of unspecified part of unspecified bronchus or lung; E11.9 Type 2 diabetes mellitus without complications; N40.0 Benign prostatic hyperplasia without lower urinary tract symptoms; J84.10 Pulmonary fibrosis, unspecified
CPT/HCPCS: 36415; 80053; 85025; 96367; 96375; 96413; 96415; 96417; J2469

== ENCOUNTER 2020-05-18 07:28 | Day surgery (SDC) | payer OTHER ==
--- OUTSIDE RECORDS SUMMARY | 2020-05-18 07:32 | XMS ---
:1945 Author [facility] Care Team Providers Name Role Phone [facility] Unavailable Unavailable Re-disclosure Warning The records [...] is protected by Article 27-F of the [facility] Public Health law. If you continue you may haveaccess to information: Regarding HIV / AIDS; Provided by facilities licensed or operated by the [facility] Office of Mental Health; or Provided by the [facility] Office for People With Developmental Disabilities. If such information is present, then the following [facility] mandated warning applies: This information has been [...] law may result in a fine or intermediate sentence or both. A general authorization for the release of medical or other information is NOT sufficient authorization for further disclosure. Encounters Encounter Providers Location Date Indications Data Source(s ) Outpatient Attender: [id number] 09/20/2019 [facility] ([facility] 01:05:51 PM [facility] [place]) EST Patient admitted. Insurance Providers Payer name Policy type Policy ID Covered Covered constitution party's Policy P joyce / Coverage constitution party ID relationship to [place] [employer] type [place] [place] [id number] SP [id number] 03 COMPLETE MEDICAID [id number] SP [id number] PRINCESS MEDICARE [id number] SP [id number] [place] [id number] SP [id number] HEALTHCARE (MEDICARE) W [id number] 01 [id number] A Results ID Date Data Source [id number] 04/25/2020 04:30:00 PM EDT [facility] Name Value Range Interpretation Description Data Sup porting Code Source(s) Document(s ) SARS [facility] coronavirus 2 RNA This lab was ordered by [facility] and reported by [facility]. Procedure
[2020-05-18] MEDS ORDERED: PROCHLORPERAZINE MALEATE 5 MG TABLET PO ONE (10:00)
[2020-05-18] MEDS ORDERED: DEXAMETHASONE SODIUM PHOSPHATE 10 MG in SODIUM CHLORIDE 50 ML IVPB ONE (10:00)
[2020-05-18] MEDS ORDERED: SODIUM CHLORIDE 0.9% IV ONE (10:30)
[2020-05-18] MEDS ORDERED: ETOPOSIDE IV ONE (10:30)
[2020-05-18 17:28] VITALS: TEMP 98
[2020-05-18 17:35] VITALS: BP 116/51; PULSE 69
== END 2020-05-18 17:15 | disposition home or self-care (01) ==
LOC: JONCCHEMO 07:28
PROVIDERS: ATTEND Internal Medicine Hematology & Oncology
PROC: 3E03305 Introduction of Other Antineoplastic into Peripheral Vein, Percutaneous Approach (ICD-10-PCS; principal; 2020-05-18)
PROC: 3E033GC Introduction of Other Therapeutic Substance into Peripheral Vein, Percutaneous Approach (ICD-10-PCS; 2020-05-18)
DX: Z51.11 Encounter for antineoplastic chemotherapy (principal); C34.90 Malignant neoplasm of unspecified part of unspecified bronchus or lung
CPT/HCPCS: 96375; 96413; 96415

== ENCOUNTER 2020-05-21 07:40 | Day surgery (SDC) | payer OTHER ==
--- OUTSIDE RECORDS SUMMARY | 2020-05-21 07:46 | XMS ---
:1945 Author [facility] Care Team Providers Name Role Phone [facility] Unavailable Unavailable Re-disclosure Warning [...] is protected by Article 27-F of the [facility] Public Health law. If you continue you may haveaccess to information: Regarding HIV / AIDS; Provided by facilities licensed or operated by the [facility] Office of Mental Health; or Provided by the [facility] Office for People With Developmental Disabilities. If such information is present, then the following [facility] mandated warning applies: This information has been [...] law may result in a fine or usp sentence or both. A general authorization for the release of medical or other information is NOT sufficient authorization for further disclosure. Encounters Encounter Providers Location Date Indications Data Source(s ) Outpatient Attender: HDSW9 09/20/2019 [facility] ([facility] 01:05:51 PM [facility] [place]) EST Patient admitted. Insurance Providers Payer name Policy type Policy ID Covered Covered green party's Policy P joyce / Coverage green party ID relationship to [place] [employer] or[employer]ation [place] [place] [id number] SP [id number] 03 COMPLETE MEDICAID [id number] SP [id number] PRINCESS MEDICARE [id number] SP [id number] [place] [id number] SP [id number] HEALTHCARE (MEDICARE) W [id number] 01 [id number] 01 [id number] A Results ID Date Data Source [id number] 04/25/2020 04:30:00 PM EDT [facility] Name Value Range Interpretation Description Data Sup porting Code Source(s) Document(s ) SARS [facility] coronavirus 2 RNA This lab was ordered by [facility] and reported by [facility]. Procedure
[2020-05-21] MEDS ORDERED: PROCHLORPERAZINE MALEATE 5 MG TABLET PO ONE (10:00)
[2020-05-21] MEDS ORDERED: DEXAMETHASONE SODIUM PHOSPHATE 10 MG in SODIUM CHLORIDE 50 ML IVPB ONE (10:00)
[2020-05-21] MEDS ORDERED: ETOPOSIDE IV ONE (10:30)
[2020-05-21] MEDS ORDERED: SODIUM CHLORIDE 0.9% IV ONE (10:30)
[2020-05-21 12:05] LABS: BASO % 0.2 % (0-2.0); EOS % 1.4 % (0-4.5); HEMATOCRIT 31.8 % (35.4-49); HEMOGLOBIN 10.7 GM/dL (11.7-16.9); LYMPH % 18.2 % (8-40); MCH 30.5 pg (25.7-33.7); MCHC 33.6 g/dl (32.0-35.9); MEAN CELL VOLUME 90.6 fl (80-96); MEAN PLT VOLUME 8.2 fl (7.5-11.1); MONO % 2.1 % (3.8-10.2); NEUT % 78.1 % (42.8-82.8); PLATELET COUNT 183 K/MM3 (134-434); RBC 3.51 M/mm3 (4.00-5.60); RDW 15.2 % (11.9-15.9)
[2020-05-21 12:22] LABS: POTASSIUM 5.3 mmol/L (3.5-5.1)
[2020-05-21 12:24] LABS: ALBUMIN 3.2 g/dl (3.4-5.0); BLOOD UREA NITROGEN 13.1 mg/dL (7-18); CALCIUM 8.3 mg/dL (8.5-10.1)
[2020-05-21 12:27] LABS: CREATININE 0.6 mg/dL (0.55-1.3)
[2020-05-21 12:29] LABS: BILIRUBIN,TOTAL 0.8 mg/dL (0.2-1); TOT PROT 6.8 g/dl (6.4-8.2)
[2020-05-21] MEDS ORDERED: PEGFILGRASTIM (NEULASTA ONPRO) 6 MG/0.6 ML KIT SQ ONE (12:30)
[2020-05-21] MEDS ORDERED: ZOLEDRONIC ACID 3 MG in SODIUM CHLORIDE 100 ML IVPB ONE (14:00)
[2020-05-21 14:59] VITALS: TEMP 98.5
[2020-05-21 17:00] VITALS: BP 139/58; PULSE 74
== END 2020-05-21 16:30 | disposition home or self-care (01) ==
LOC: JONCCHEMO 07:40
PROVIDERS: ATTEND Internal Medicine Hematology & Oncology
PROC: 3E03305 Introduction of Other Antineoplastic into Peripheral Vein, Percutaneous Approach (ICD-10-PCS; principal; 2020-05-21)
PROC: 3E033GC Introduction of Other Therapeutic Substance into Peripheral Vein, Percutaneous Approach (ICD-10-PCS; 2020-05-21)
PROC: 3E013GC Introduction of Other Therapeutic Substance into Subcutaneous Tissue, Percutaneous Approach (ICD-10-PCS; 2020-05-21)
DX: Z51.11 Encounter for antineoplastic chemotherapy (principal); C34.90 Malignant neoplasm of unspecified part of unspecified bronchus or lung
CPT/HCPCS: 36415; 80053; 83735; 85025; 96367; 96372; 96375; 96413; 96415; J2505; J3489

== ENCOUNTER 2020-06-11 07:21 | Day surgery (SDC) | payer OTHER ==
[2020-06-11] MEDS ORDERED: DEXAMETHASONE SODIUM PHOSPHATE 10 MG in SODIUM CHLORIDE 50 ML IVPB ONE (09:30)
[2020-06-11] MEDS ORDERED: PALONOSETRON HCL 0.25 MG/5 ML VIAL IVPUSH ONE (09:30)
[2020-06-11] MEDS ORDERED: CARBOPLATIN IVPB ONE (10:00)
[2020-06-11] MEDS ORDERED: SODIUM CHLORIDE IVPB ONE (10:00)
[2020-06-11 10:21] LABS: BASO % 0.5 % (0-2.0); EOS % 0.4 % (0-4.5); HEMOGLOBIN 9.4 GM/dL (11.7-16.9); LYMPH % 17.6 % (8-40); MCH 30.9 pg (25.7-33.7); MCHC 33.5 g/dl (32.0-35.9); MEAN CELL VOLUME 92.1 fl (80-96); MEAN PLT VOLUME 6.5 fl (7.5-11.1); MONO % 6.1 % (3.8-10.2); NEUT % 75.4 % (42.8-82.8); PLATELET COUNT 226 K/MM3 (134-434); RBC 3.04 M/mm3 (4.00-5.60); RDW 16.3 % (11.9-15.9); WHITE BLOOD COUNT 10.1 K/mm3 (4.0-10.0)
[2020-06-11 10:29] LABS: INR 1.22 (0.83-1.09); PROTHROMBIN TIME (PATIENT) 14.9 SEC (9.7-13.0)
[2020-06-11] MEDS ORDERED: ETOPOSIDE IV ONE (10:30)
[2020-06-11] MEDS ORDERED: SODIUM CHLORIDE IV ONE (10:30)
[2020-06-11 10:47] LABS: ALBUMIN 3.5 g/dl (3.4-5.0); CALCIUM 8.6 mg/dL (8.5-10.1)
[2020-06-11 10:48] LABS: BLOOD UREA NITROGEN 8.1 mg/dL (7-18)
[2020-06-11 10:51] LABS: CREATININE 0.5 mg/dL (0.55-1.3)
[2020-06-11 10:52] LABS: BILIRUBIN,TOTAL 0.6 mg/dL (0.2-1); TOT PROT 6.8 g/dl (6.4-8.2)
[2020-06-11 12:18] LABS: ANISOCYTOSIS 2+; PLATELET ESTIMATE ADEQUATE
[2020-06-11] MEDS ORDERED: MIDAZOLAM HCL 2 MG/2 ML SINGLE DOSE VIAL ONE (12:28)
[2020-06-11 16:28] VITALS: TEMP 98
[2020-06-11 17:01] VITALS: BP 130/68; PULSE 88
== END 2020-06-11 16:30 | disposition home or self-care (01) ==
LOC: JRADIR 07:21
PROVIDERS: ATTEND Internal Medicine Hematology & Oncology
PROC: 02HV33Z Insertion of Infusion Device into Superior Vena Cava, Percutaneous Approach (ICD-10-PCS; principal; 2020-06-11)
PROC: B518ZZA Fluoroscopy of Superior Vena Cava, Guidance (ICD-10-PCS; 2020-06-11)
DX: C34.90 Malignant neoplasm of unspecified part of unspecified bronchus or lung (principal)
CPT/HCPCS: 36561; 77001; C1788; 36415; 80053; 83735; 85025; 85610

== ENCOUNTER 2020-06-12 07:11 | Day surgery (SDC) | payer OTHER ==
[2020-06-12] MEDS ORDERED: DEXAMETHASONE SODIUM PHOSPHATE 10 MG in SODIUM CHLORIDE 50 ML IVPB ONE ×2 (09:30)
[2020-06-12] MEDS ORDERED: PROCHLORPERAZINE MALEATE 5 MG TABLET PO ONE (09:30)
[2020-06-12] MEDS ORDERED: PALONOSETRON HCL 0.25 MG/5 ML VIAL IVPUSH ONE (09:30)
[2020-06-12] MEDS ORDERED: SODIUM CHLORIDE IVPB ONE (10:00)
[2020-06-12] MEDS ORDERED: SODIUM CHLORIDE IV ONE ×2 (10:00→10:30)
[2020-06-12] MEDS ORDERED: CARBOPLATIN IVPB ONE (10:00)
[2020-06-12] MEDS ORDERED: ETOPOSIDE IV ONE ×2 (10:00→10:30)
[2020-06-12 16:50] VITALS: BP 110/53; PULSE 70; TEMP 98.2
== END 2020-06-12 15:10 | disposition home or self-care (01) ==
LOC: JONCCHEMO 07:11
PROVIDERS: ATTEND Internal Medicine Hematology & Oncology
DX: Z51.11 Encounter for antineoplastic chemotherapy (principal); C34.90 Malignant neoplasm of unspecified part of unspecified bronchus or lung
CPT/HCPCS: 96375; 96413; 96415; 96417; J2469

== ENCOUNTER 2020-06-13 07:18 | Day surgery (SDC) | payer OTHER ==
[2020-06-13] MEDS ORDERED: DEXAMETHASONE SODIUM PHOSPHATE 10 MG in SODIUM CHLORIDE 50 ML IVPB ONE ×2 (09:30)
[2020-06-13] MEDS ORDERED: PROCHLORPERAZINE MALEATE 5 MG TABLET PO ONE ×2 (09:30)
[2020-06-13] MEDS ORDERED: ETOPOSIDE IV ONE ×3 (10:00→12:45)
[2020-06-13] MEDS ORDERED: SODIUM CHLORIDE IV ONE ×3 (10:00→12:45)
[2020-06-13] MEDS ORDERED: PEGFILGRASTIM (NEULASTA ONPRO) 6 MG/0.6 ML KIT SQ ONE (13:00)
[2020-06-13 15:30] VITALS: BP 108/52; PULSE 81; TEMP 98.2
[2020-06-13] MEDS ORDERED: PORTA CATH FLUSH 10 ML IVPUSH ONE (15:30)
== END 2020-06-13 15:39 | disposition home or self-care (01) ==
LOC: JONCCHEMO 07:18
PROVIDERS: ATTEND Internal Medicine Hematology & Oncology
DX: Z51.11 Encounter for antineoplastic chemotherapy (principal); C34.90 Malignant neoplasm of unspecified part of unspecified bronchus or lung
CPT/HCPCS: 96375; 96413

== ENCOUNTER 2020-06-14 06:06 | Day surgery (SDC) | payer OTHER ==
[2020-06-14] MEDS ORDERED: PROCHLORPERAZINE MALEATE 5 MG TABLET PO ONE (12:30)
[2020-06-14] MEDS ORDERED: PEGFILGRASTIM (NEULASTA ONPRO) 6 MG/0.6 ML KIT SQ ONE (12:30)
[2020-06-14] MEDS ORDERED: SODIUM CHLORIDE IV ONE (12:30)
[2020-06-14] MEDS ORDERED: ETOPOSIDE IV ONE (12:30)
[2020-06-14] MEDS ORDERED: DEXAMETHASONE SODIUM PHOSPHATE 10 MG in SODIUM CHLORIDE 50 ML IVPB ONE (12:30)
[2020-06-14 16:12] VITALS: TEMP 97.8
[2020-06-14 16:15] VITALS: BP 126/54; PULSE 71
== END 2020-06-14 16:21 | disposition home or self-care (01) ==
LOC: JONCCHEMO 06:06
PROVIDERS: ATTEND Internal Medicine Hematology & Oncology
DX: Z51.11 Encounter for antineoplastic chemotherapy (principal); C34.90 Malignant neoplasm of unspecified part of unspecified bronchus or lung
CPT/HCPCS: 96372; 96375; 96413; 96415; J2505

== ENCOUNTER 2020-06-18 14:20 | Observation (INO) | payer OTHER ==
[2020-06-18 14:34] VITALS: BMI 20.5
[2020-06-18] MEDS ORDERED: dilTIAZem HCL 50 MG/10 ML - 10 ML VIAL IVPUSH ONE ×2 (14:50→16:45)
[2020-06-18] MEDS ORDERED: dilTIAZem HCL 125 MG/25 ML - 25 ML VIAL ONE ×2 (15:00→16:56)
[2020-06-18] MEDS ORDERED: LACTATED RINGERS SOLUTION 1000 ML INFUS.BAG IV ONE (15:15)
[2020-06-18 15:29] LABS: BASO % 0.3 % (0-2.0); EOS % 0.6 % (0-4.5); HEMATOCRIT 24.3 % (35.4-49); HEMOGLOBIN 7.9 GM/dL (11.7-16.9); MCH 30.2 pg (25.7-33.7); MCHC 32.3 g/dl (32.0-35.9); MEAN CELL VOLUME 93.4 fl (80-96); MEAN PLT VOLUME 7.3 fl (7.5-11.1); NEUT % 89.1 % (42.8-82.8); PLATELET COUNT 166 K/MM3 (134-434); RBC 2.61 M/mm3 (4.00-5.60); RDW 17.1 % (11.9-15.9)
[2020-06-18 15:36] LABS: WHITE BLOOD COUNT 30.7 K/mm3 (4.0-10.0)
[2020-06-18 15:37] LABS: INR 1.32 (0.83-1.09); PROTHROMBIN TIME (PATIENT) 15.8 SEC (9.7-13.0)
[2020-06-18 15:40] LABS: ACTIVATED PTT 28.6 SECONDS (25.2-36.5)
[2020-06-18] MEDS ORDERED: dilTIAZem HCL 30 MG TABLET PO ONE (15:43)
[2020-06-18 15:44] LABS: POTASSIUM 4.3 mmol/L (3.5-5.1)
[2020-06-18 15:47] LABS: ALBUMIN 3.5 g/dl (3.4-5.0); BLOOD UREA NITROGEN 16.6 mg/dL (7-18); CALCIUM 7.8 mg/dL (8.5-10.1); MAGNESIUM 1.7 mg/dL (1.8-2.4)
[2020-06-18] MEDS ORDERED: dilTIAZem HCL 30 MG TABLET ONE (15:49)
[2020-06-18 15:50] LABS: CREATININE 0.5 mg/dL (0.55-1.3)
[2020-06-18 15:52] LABS: BILIRUBIN,TOTAL 0.8 mg/dL (0.2-1); TOT PROT 6.3 g/dl (6.4-8.2)
[2020-06-18] MEDS ORDERED: METOPROLOL TARTRATE 5 MG/5 ML VIAL IVPUSH PRN (17:35)
[2020-06-18] MEDS ORDERED: DIGOXIN 0.5 MG/2 ML AMPUL IVPUSH ONE (19:04)
[2020-06-18] MEDS ORDERED: METOPROLOL TARTRATE 5 MG/5 ML VIAL ONE (19:14)
[2020-06-18] MEDS ORDERED: DIGOXIN 0.5 MG/2 ML AMPUL ONE (20:04)
[2020-06-18] MEDS ORDERED: ACETAMINOPHEN 325 MG TABLET (FP) PO PRN (22:55)
[2020-06-18] MEDS ORDERED: METOPROLOL TARTRATE 25 MG TABLET (FP) ONE (22:59)
[2020-06-18] MEDS ORDERED: oxyCODONE HCL 5 MG TABLET ONE (23:00)
[2020-06-18] MEDS ORDERED: ENOXAPARIN NA (PORCINE) 60 MG/0.6 ML DISP.SYRIN SQ ONE (23:01)
[2020-06-18] MEDS: oxyCODONE HCL 5 MG TABLET PO PRN (23:20)
[2020-06-18] MEDS: METOPROLOL TARTRATE 25 MG TABLET (FP) PO SCH (23:20)
[2020-06-18] MEDS: ENOXAPARIN NA (PORCINE) 60 MG/0.6 ML DISP.SYRIN SQ SCH (23:20)
[2020-06-19 06:29] LABS: BASO % 0.2 % (0-2.0); HEMATOCRIT 21.9 % (35.4-49); HEMOGLOBIN 7.2 GM/dL (11.7-16.9); LYMPH % 11.1 % (8-40); MCH 30.4 pg (25.7-33.7); MCHC 32.8 g/dl (32.0-35.9); MEAN CELL VOLUME 92.7 fl (80-96); MEAN PLT VOLUME 7.4 fl (7.5-11.1); MONO % 3.7 % (3.8-10.2); PLATELET COUNT 153 K/MM3 (134-434); RBC 2.37 M/mm3 (4.00-5.60); WHITE BLOOD COUNT 23.8 K/mm3 (4.0-10.0)
[2020-06-19 06:46] LABS: POTASSIUM 4.4 mmol/L (3.5-5.1)
[2020-06-19 06:51] LABS: ALBUMIN 3.2 g/dl (3.4-5.0); CALCIUM 7.5 mg/dL (8.5-10.1)
[2020-06-19 06:52] LABS: BLOOD UREA NITROGEN 18.7 mg/dL (7-18); MAGNESIUM 1.7 mg/dL (1.8-2.4)
[2020-06-19 06:55] LABS: CREATININE 0.7 mg/dL (0.55-1.3)
[2020-06-19 06:56] LABS: BILIRUBIN,TOTAL 0.9 mg/dL (0.2-1); TOT PROT 5.8 g/dl (6.4-8.2)
[2020-06-19 09:05] LABS: ANISOCYTOSIS 1+; MACROCYTOSIS 1+; PLATELET ESTIMATE DECREASED
[2020-06-19] MEDS ORDERED: ENOXAPARIN NA (PORCINE) 60 MG/0.6 ML DISP.SYRIN SQ ONE (09:16)
[2020-06-19] MEDS: ENOXAPARIN NA (PORCINE) 60 MG/0.6 ML DISP.SYRIN SQ SCH ×2 (09:26→21:58)
[2020-06-19] MEDS: METOPROLOL TARTRATE 25 MG TABLET (FP) PO SCH ×2 (09:26→21:56)
[2020-06-19] MEDS ORDERED: oxyCODONE HCL 5 MG TABLET ONE (10:04)
[2020-06-19] MEDS: oxyCODONE HCL 5 MG TABLET PO PRN ×2 (10:07→18:27)
[2020-06-19] MEDS ORDERED: DIGOXIN 0.5 MG/2 ML AMPUL ONE (10:50)
[2020-06-19] MEDS ORDERED: DIGOXIN 0.5 MG/2 ML AMPUL IVPUSH ONE (11:43)
[2020-06-19] MEDS ORDERED: DOCUSATE SODIUM 100 MG CAPSULE (FP) PO PRN (16:14)
[2020-06-19] MEDS ORDERED: ALBUTEROL SO4 HFA INHALER IH PRN (16:14)
[2020-06-19] MEDS: TAMSULOSIN HCL 0.4 MG CAP PO SCH (18:26)
[2020-06-19] MEDS: MULTIVITAMINS (DAILY MVI) TABLET (FP) PO SCH (18:26)
[2020-06-19] MEDS: SENNOSIDES 8.6MG TABLET (FP) PO SCH (21:54)
[2020-06-19] MEDS: ROSUVASTATIN CA 10 MG TABLET (FP) PO SCH (21:55)
[2020-06-19] MEDS: MAGNESIUM OXIDE 400 MG TABLET (FP) PO SCH (21:56)
[2020-06-19] MEDS: MIRTAZAPINE 15 MG TABLET (FP) PO SCH (21:56)
[2020-06-19] MEDS: GABAPENTIN 100 MG CAPSULE PO SCH (21:57)
[2020-06-19] MEDS: FLUTICASONE/SALMETEROL 100 MCG/50 MCG DISKUS IH SCH (22:08)
[2020-06-19] MEDS: POLYETHYLENE GLYCOL 3350 119 GM BTL PO SCH (22:15)
[2020-06-19 22:37] LABS: PH,URINE 5.5 (5.0-8.0); URINE APPEARANCE CLEAR; URINE BILIRUBIN NEGATIVE (NEGATIVE); URINE COLOR YELLOW; URINE GLUCOSE (UA) NEGATIVE (NEGATIVE); URINE KETONE NEGATIVE (NEGATIVE); URINE LEUK ESTERASE NEGATIVE (NEGATIVE); URINE NITRITE NEGATIVE (NEGATIVE); URINE PROTEIN NEGATIVE (NEGATIVE)
[2020-06-20] MEDS: traMADol HCL 50 MG TABLET PO PRN (02:04)
[2020-06-20] MEDS: GABAPENTIN 100 MG CAPSULE PO SCH ×3 (06:19→21:31)
[2020-06-20] MEDS: sitaGLIPtin PHOSPHATE 50 MG TABLET PO SCH (06:19)
[2020-06-20] MEDS: TAMSULOSIN HCL 0.4 MG CAP PO SCH (08:37)
[2020-06-20] MEDS: MAGNESIUM OXIDE 400 MG TABLET (FP) PO SCH ×2 (10:26→21:30)
[2020-06-20] MEDS: MULTIVITAMINS (DAILY MVI) TABLET (FP) PO SCH (10:27)
[2020-06-20] MEDS: METOPROLOL TARTRATE 25 MG TABLET (FP) PO SCH ×2 (10:27→21:38)
[2020-06-20] MEDS: ENOXAPARIN NA (PORCINE) 60 MG/0.6 ML DISP.SYRIN SQ SCH ×2 (10:27→21:36)
[2020-06-20] MEDS: FLUTICASONE/SALMETEROL 100 MCG/50 MCG DISKUS IH SCH ×2 (10:28→21:31)
[2020-06-20] MEDS: POLYETHYLENE GLYCOL 3350 119 GM BTL PO SCH (10:31)
[2020-06-20] MEDS ORDERED: PNEUMOC 13-VAL CONJ-DIP CRM/PF 0.5 ML DISP.SYRIN IM ONE (10:49)
[2020-06-20] MEDS ORDERED: FLU VACCINE (FLULAVAL) PF 60 MCG/0.5 ML SYRINGE 2020-2021 IM ONE (10:49)
[2020-06-20 11:54] LABS: BASO % 0.3 % (0-2.0); EOS % 1.2 % (0-4.5); HEMATOCRIT 21.4 % (35.4-49); LYMPH % 13.2 % (8-40); MCH 29.6 pg (25.7-33.7); MEAN CELL VOLUME 92.3 fl (80-96); MEAN PLT VOLUME 7.5 fl (7.5-11.1); MONO % 9.7 % (3.8-10.2); NEUT % 75.6 % (42.8-82.8); PLATELET COUNT 143 K/MM3 (134-434); RBC 2.32 M/mm3 (4.00-5.60)
[2020-06-20 11:57] LABS: HEMOGLOBIN 6.9 GM/dL (11.7-16.9)
[2020-06-20 12:09] LABS: POTASSIUM 3.9 mmol/L (3.5-5.1)
[2020-06-20 12:11] LABS: CALCIUM 7.4 mg/dL (8.5-10.1)
[2020-06-20 12:12] LABS: BLOOD UREA NITROGEN 14.1 mg/dL (7-18)
[2020-06-20 12:15] LABS: CREATININE 0.5 mg/dL (0.55-1.3)
[2020-06-20 12:16] LABS: BILIRUBIN,TOTAL 0.4 mg/dL (0.2-1); TOT PROT 5.4 g/dl (6.4-8.2)
[2020-06-20 12:25] LABS: ANISOCYTOSIS 2+; MACROCYTOSIS 0; PLATELET ESTIMATE DECREASED
[2020-06-20] MEDS: oxyCODONE HCL 5 MG TABLET PO PRN (16:44)
[2020-06-20] MEDS: TIOTROPIUM BROMIDE 2.5 MCG (SPIRIVA) RESPIMAT INHALER IH SCH (17:26)
[2020-06-20] MEDS: ROSUVASTATIN CA 10 MG TABLET (FP) PO SCH (21:30)
[2020-06-20] MEDS: SENNOSIDES 8.6MG TABLET (FP) PO SCH (21:30)
[2020-06-20] MEDS: MIRTAZAPINE 15 MG TABLET (FP) PO SCH (21:31)
[2020-06-21] MEDS: traMADol HCL 50 MG TABLET PO PRN (00:33)
[2020-06-21] MEDS: sitaGLIPtin PHOSPHATE 50 MG TABLET PO SCH (06:22)
[2020-06-21] MEDS: GABAPENTIN 100 MG CAPSULE PO SCH ×2 (06:22→14:59)
[2020-06-21 07:23] LABS: BASO % 0.4 % (0-2.0); HEMATOCRIT 24.6 % (35.4-49); HEMOGLOBIN 8.1 GM/dL (11.7-16.9); LYMPH % 15.8 % (8-40); MCH 30.9 pg (25.7-33.7); MCHC 32.9 g/dl (32.0-35.9); MEAN CELL VOLUME 93.8 fl (80-96); MEAN PLT VOLUME 7.9 fl (7.5-11.1); MONO % 7.4 % (3.8-10.2); NEUT % 75.4 % (42.8-82.8); PLATELET COUNT 136 K/MM3 (134-434); RBC 2.62 M/mm3 (4.00-5.60); RDW 16.7 % (11.9-15.9); WHITE BLOOD COUNT 14.9 K/mm3 (4.0-10.0)
[2020-06-21 08:04] LABS: ALBUMIN 3.2 g/dl (3.4-5.0); CALCIUM 7.4 mg/dL (8.5-10.1)
[2020-06-21 08:06] LABS: BLOOD UREA NITROGEN 13.8 mg/dL (7-18)
[2020-06-21 08:08] LABS: CREATININE 0.6 mg/dL (0.55-1.3)
[2020-06-21 08:10] LABS: BILIRUBIN,TOTAL 0.6 mg/dL (0.2-1); TOT PROT 5.8 g/dl (6.4-8.2)
[2020-06-21 08:43] LABS: TOTAL IRON BINDING CAPACITY 245 ug/dL (250-450)
[2020-06-21 08:44] LABS: IRON SERUM 93 ug/dL (50-175)
[2020-06-21 09:22] LABS: ANISOCYTOSIS 1+; MACROCYTOSIS 1+; PLATELET ESTIMATE DECREASED; TEAR DROP CELLS 1+
[2020-06-21] MEDS: TAMSULOSIN HCL 0.4 MG CAP PO SCH (09:54)
[2020-06-21] MEDS: MULTIVITAMINS (DAILY MVI) TABLET (FP) PO SCH (09:54)
[2020-06-21] MEDS: MAGNESIUM OXIDE 400 MG TABLET (FP) PO SCH (09:54)
[2020-06-21] MEDS: POLYETHYLENE GLYCOL 3350 119 GM BTL PO SCH (09:54)
[2020-06-21] MEDS: TIOTROPIUM BROMIDE 2.5 MCG (SPIRIVA) RESPIMAT INHALER IH SCH (09:54)
[2020-06-21] MEDS: METOPROLOL TARTRATE 25 MG TABLET (FP) PO SCH (09:54)
[2020-06-21] MEDS: FLUTICASONE/SALMETEROL 100 MCG/50 MCG DISKUS IH SCH (09:54)
[2020-06-21] MEDS: ENOXAPARIN NA (PORCINE) 60 MG/0.6 ML DISP.SYRIN SQ SCH (09:55)
[2020-06-21 14:27] VITALS: BP 125/60; PULSE 74; TEMP 98.4
[2020-06-21] MEDS: oxyCODONE HCL 5 MG TABLET PO PRN (15:09)
== END 2020-06-21 18:34 | disposition home health service (06) ==
LOC: JER 14:20 → INTOOBSV 16:42 → JERBED 16:42 → J4W 06-19 18:09
PROVIDERS: ADMIT Family Medicine; ATTEND Family Medicine
PROC: 3E0234Z Introduction of Serum, Toxoid and Vaccine into Muscle, Percutaneous Approach (ICD-10-PCS; principal; 2020-06-18)
PROC: 3E0234Z Introduction of Serum, Toxoid and Vaccine into Muscle, Percutaneous Approach (ICD-10-PCS; 2020-06-18)
PROC: 3E033GC Introduction of Other Therapeutic Substance into Peripheral Vein, Percutaneous Approach (ICD-10-PCS; 2020-06-18)
PROC: 3E023GC Introduction of Other Therapeutic Substance into Muscle, Percutaneous Approach (ICD-10-PCS; 2020-06-18)
PROC: 3E0337Z Introduction of Electrolytic and Water Balance Substance into Peripheral Vein, Percutaneous Approach (ICD-10-PCS; 2020-06-18)
DX: D72.829 Elevated white blood cell count, unspecified (principal); I48.92 Unspecified atrial flutter; C34.90 Malignant neoplasm of unspecified part of unspecified bronchus or lung; Z79.899 Other long term (current) drug therapy; D64.9 Anemia, unspecified; C79.51 Secondary malignant neoplasm of bone; R64 Cachexia; E46 Unspecified protein-calorie malnutrition; D69.6 Thrombocytopenia, unspecified; J84.10 Pulmonary fibrosis, unspecified; N40.0 Benign prostatic hyperplasia without lower urinary tract symptoms; I71.4 Abdominal aortic aneurysm, without rupture; I10 Essential (primary) hypertension; E11.9 Type 2 diabetes mellitus without complications; E78.5 Hyperlipidemia, unspecified; Z79.01 Long term (current) use of anticoagulants; J84.9 Interstitial pulmonary disease, unspecified; F17.210 Nicotine dependence, cigarettes, uncomplicated
CPT/HCPCS: 36415; 36430; 71045-TC-FY; 80048; 80053; 81003; 82550; 82962; 83540; 83550; 83735; 84436; 84443; 84484; 85025; 85610; 85730; 86850; 86900; 86901; 86922; 87040; 87086; 90471; 90670; 93005; 93010; 93306-TC; 96361; 96372; 96374; 96375; 96376; 99285-25; C9803; G0009; G0378; P9058; Q2036; U0003

== ENCOUNTER 2020-07-04 18:38 | Day surgery (SDC) | payer OTHER ==
[2020-07-04 13:28] LABS: BASO % 0.4 % (0-2.0); EOS % 0.3 % (0-4.5); HEMATOCRIT 26.4 % (35.4-49); HEMOGLOBIN 8.6 GM/dL (11.7-16.9); LYMPH % 17.6 % (8-40); MCH 31.4 pg (25.7-33.7); MCHC 32.6 g/dl (32.0-35.9); MEAN CELL VOLUME 96.3 fl (80-96); MEAN PLT VOLUME 7.6 fl (7.5-11.1); MONO % 6.9 % (3.8-10.2); NEUT % 74.8 % (42.8-82.8); PLATELET COUNT 208 K/MM3 (134-434); RBC 2.74 M/mm3 (4.00-5.60); RDW 19.9 % (11.9-15.9); WHITE BLOOD COUNT 11.4 K/mm3 (4.0-10.0)
[2020-07-04 13:48] LABS: POTASSIUM 4.7 mmol/L (3.5-5.1)
[2020-07-04 13:50] LABS: CALCIUM 8.5 mg/dL (8.5-10.1)
[2020-07-04 13:51] LABS: BLOOD UREA NITROGEN 14.5 mg/dL (7-18); MAGNESIUM 1.8 mg/dL (1.8-2.4)
[2020-07-04 13:54] LABS: ALBUMIN 3.9 g/dl (3.4-5.0)
[2020-07-04 13:55] LABS: BILIRUBIN,TOTAL 0.6 mg/dL (0.2-1); TOT PROT 6.8 g/dl (6.4-8.2)
[2020-07-04 13:57] LABS: CREATININE 0.7 mg/dL (0.55-1.3)
[2020-07-04 14:07] LABS: ANISOCYTOSIS 1+; MACROCYTOSIS 1+; PLATELET ESTIMATE NORMAL
[2020-07-04 17:47] VITALS: TEMP 98.3
[2020-07-04 18:04] VITALS: BP 135/55; PULSE 85
[~2020-07-04 18:38] MED LIST: CARBOPLATIN IVPB ONE; DEXAMETHASONE SODIUM PHOSPHATE 10 MG in SODIUM CHLORIDE 50 ML IVPB ONE; ETOPOSIDE IV ONE; PALONOSETRON HCL 0.25 MG/5 ML VIAL IVPUSH ONE; PORTA CATH FLUSH 10 ML IVPUSH ONE; SODIUM CHLORIDE 0.9% IV ONE; SODIUM CHLORIDE IVPB ONE
== END 2020-07-04 18:44 | disposition home or self-care (01) ==
LOC: JONCCHEMO 18:38
PROVIDERS: ATTEND Internal Medicine Hematology & Oncology
DX: Z51.11 Encounter for antineoplastic chemotherapy (principal); C34.90 Malignant neoplasm of unspecified part of unspecified bronchus or lung
CPT/HCPCS: 36415; 80053; 83735; 85025; 96375; 96413; 96415; 96417; J2469

== ENCOUNTER 2020-07-05 07:41 | Day surgery (SDC) | payer OTHER ==
[2020-07-05] MEDS ORDERED: PROCHLORPERAZINE MALEATE 5 MG TABLET PO ONE (12:30)
[2020-07-05] MEDS ORDERED: DEXAMETHASONE INJECTION 10 MG in SODIUM CHLORIDE 50 ML IVPB ONE (12:30)
[2020-07-05] MEDS ORDERED: ETOPOSIDE IV ONE (13:00)
[2020-07-05] MEDS ORDERED: SODIUM CHLORIDE 0.9% IV ONE (13:00)
[2020-07-05 15:10] VITALS: TEMP 98.1
[2020-07-05 16:23] VITALS: BP 98/47; PULSE 77
== END 2020-07-05 16:24 | disposition home or self-care (01) ==
LOC: JONCCHEMO 07:41
PROVIDERS: ATTEND Internal Medicine Hematology & Oncology
DX: Z51.11 Encounter for antineoplastic chemotherapy (principal); C34.90 Malignant neoplasm of unspecified part of unspecified bronchus or lung
CPT/HCPCS: 96375; 96413; 96415; J1100; J9181

== ENCOUNTER 2020-07-06 07:04 | Day surgery (SDC) | payer OTHER ==
[2020-07-06] MEDS ORDERED: ZOLEDRONIC ACID 4 MG in SODIUM CHLORIDE 100 ML IVPB ONE (09:00)
[2020-07-06] MEDS ORDERED: DEXAMETHASONE SODIUM PHOSPHATE 10 MG in SODIUM CHLORIDE 50 ML IVPB ONE (10:00)
[2020-07-06] MEDS ORDERED: PROCHLORPERAZINE MALEATE 5 MG TABLET PO ONE (10:00)
[2020-07-06] MEDS ORDERED: SODIUM CHLORIDE 0.9% IV ONE (10:30)
[2020-07-06] MEDS ORDERED: ETOPOSIDE IV ONE (10:30)
[2020-07-06] MEDS ORDERED: PEGFILGRASTIM (NEULASTA ONPRO) 6 MG/0.6 ML KIT SQ ONE (12:30)
[2020-07-06] MEDS: ACETAMINOPHEN 325 MG TABLET (FP) PO ONE ×2 (14:52→15:52)
[2020-07-06 17:16] VITALS: TEMP 98.3
[2020-07-06] MEDS ORDERED: PORTA CATH FLUSH 10 ML IVPUSH ONE (17:25)
[2020-07-06 18:21] VITALS: BP 123/47; PULSE 71
== END 2020-07-06 18:21 | disposition home or self-care (01) ==
LOC: JONCCHEMO 07:04
PROVIDERS: ATTEND Internal Medicine Hematology & Oncology
DX: Z51.11 Encounter for antineoplastic chemotherapy (principal); C34.90 Malignant neoplasm of unspecified part of unspecified bronchus or lung
CPT/HCPCS: 96367; 96372; 96375; 96413; 96415; J2505; J3489

== ENCOUNTER 2020-07-30 06:05 | Day surgery (SDC) | payer OTHER ==
[2020-07-30] MEDS ORDERED: PALONOSETRON HCL 0.25 MG/5 ML VIAL IVPUSH ONE (09:30)
[2020-07-30] MEDS ORDERED: DEXAMETHASONE SODIUM PHOSPHATE 10 MG in SODIUM CHLORIDE 50 ML IVPB ONE (09:30)
[2020-07-30] MEDS ORDERED: CARBOPLATIN IVPB ONE ×2 (10:00→15:30)
[2020-07-30] MEDS ORDERED: SODIUM CHLORIDE IVPB ONE ×2 (10:00→15:30)
[2020-07-30] MEDS ORDERED: SODIUM CHLORIDE IV ONE (10:30)
[2020-07-30] MEDS ORDERED: ETOPOSIDE IV ONE (10:30)
[2020-07-30 14:23] LABS: BASO % 0.3 % (0-2.0); EOS % 1.6 % (0-4.5); HEMATOCRIT 25.1 % (35.4-49); HEMOGLOBIN 8.4 GM/dL (11.7-16.9); LYMPH % 16.7 % (8-40); MCH 32.8 pg (25.7-33.7); MCHC 33.4 g/dl (32.0-35.9); MEAN CELL VOLUME 98.3 fl (80-96); MEAN PLT VOLUME 7.8 fl (7.5-11.1); MONO % 7.1 % (3.8-10.2); NEUT % 74.3 % (42.8-82.8); PLATELET COUNT 181 K/MM3 (134-434); RBC 2.55 M/mm3 (4.00-5.60); RDW 19.3 % (11.9-15.9); WHITE BLOOD COUNT 7.9 K/mm3 (4.0-10.0)
[2020-07-30 14:42] LABS: POTASSIUM 4.2 mmol/L (3.5-5.1)
[2020-07-30 14:44] LABS: ALBUMIN 3.6 g/dl (3.4-5.0); BLOOD UREA NITROGEN 10.6 mg/dL (7-18)
[2020-07-30 14:48] LABS: CREATININE 0.6 mg/dL (0.55-1.3)
[2020-07-30 14:50] LABS: BILIRUBIN,TOTAL 0.5 mg/dL (0.2-1); TOT PROT 6.2 g/dl (6.4-8.2)
[2020-07-30 18:36] VITALS: TEMP 97.7
[2020-07-30] MEDS ORDERED: PORTA CATH FLUSH 10 ML IVPUSH ONE ×2 (18:36→19:09)
[2020-07-30 19:09] VITALS: BP 131/59; PULSE 83
== END 2020-07-30 19:15 | disposition home or self-care (01) ==
LOC: JONCCHEMO 06:05
PROVIDERS: ATTEND Internal Medicine Hematology & Oncology
DX: Z51.11 Encounter for antineoplastic chemotherapy (principal); C34.90 Malignant neoplasm of unspecified part of unspecified bronchus or lung
CPT/HCPCS: 36415; 36430; 80053; 85025; 86850; 86900; 86901; 86922; 96375; 96413; 96415; 96417; J2469; P9058

== ENCOUNTER 2020-07-31 07:32 | Day surgery (SDC) | payer OTHER ==
[2020-07-31] MEDS ORDERED: DEXAMETHASONE SODIUM PHOSPHATE 10 MG in SODIUM CHLORIDE 50 ML IVPB ONE (09:30)
[2020-07-31] MEDS ORDERED: PROCHLORPERAZINE MALEATE 5 MG TABLET PO ONE (09:30)
[2020-07-31] MEDS ORDERED: ETOPOSIDE IV ONE (10:00)
[2020-07-31] MEDS ORDERED: SODIUM CHLORIDE IV ONE (10:00)
[2020-07-31 16:58] VITALS: TEMP 98.1
[2020-07-31] MEDS ORDERED: FUROSEMIDE 40 MG/4 ML INJECTABLE VIAL IVPUSH ONE (18:30)
[2020-07-31 18:47] VITALS: BP 139/58; PULSE 79
== END 2020-07-31 18:48 | disposition home or self-care (01) ==
LOC: JONCCHEMO 07:32
PROVIDERS: ATTEND Internal Medicine Hematology & Oncology
PROC: 30233N1 Transfusion of Nonautologous Red Blood Cells into Peripheral Vein, Percutaneous Approach (ICD-10-PCS; principal; 2020-07-31)
PROC: 3E04305 Introduction of Other Antineoplastic into Central Vein, Percutaneous Approach (ICD-10-PCS; 2020-07-31)
DX: Z51.11 Encounter for antineoplastic chemotherapy (principal); C34.90 Malignant neoplasm of unspecified part of unspecified bronchus or lung
CPT/HCPCS: 96375; 96413; 96415

== ENCOUNTER 2020-08-01 07:19 | Day surgery (SDC) | payer OTHER ==
[2020-08-01] MEDS ORDERED: PROCHLORPERAZINE MALEATE 5 MG TABLET PO ONE (09:30)
[2020-08-01] MEDS ORDERED: DEXAMETHASONE SODIUM PHOSPHATE 10 MG in SODIUM CHLORIDE 50 ML IVPB ONE (09:30)
[2020-08-01] MEDS ORDERED: ETOPOSIDE IV ONE (10:00)
[2020-08-01] MEDS ORDERED: SODIUM CHLORIDE IV ONE (10:00)
[2020-08-01] MEDS ORDERED: PEGFILGRASTIM (NEULASTA ONPRO) 6 MG/0.6 ML KIT SQ ONE (13:00)
[2020-08-01 17:26] VITALS: TEMP 97.7
[2020-08-01 17:27] VITALS: BP 137/58; PULSE 80
== END 2020-08-01 15:40 | disposition home or self-care (01) ==
LOC: JONCCHEMO 07:19
PROVIDERS: ATTEND Internal Medicine Hematology & Oncology
PROC: 3E04305 Introduction of Other Antineoplastic into Central Vein, Percutaneous Approach (ICD-10-PCS; principal; 2020-08-01)
PROC: 3E013GC Introduction of Other Therapeutic Substance into Subcutaneous Tissue, Percutaneous Approach (ICD-10-PCS; 2020-08-01)
DX: Z51.11 Encounter for antineoplastic chemotherapy (principal); C34.90 Malignant neoplasm of unspecified part of unspecified bronchus or lung
CPT/HCPCS: 96372; 96375; 96413; 96415; J2505

== ENCOUNTER 2020-08-22 07:54 | Day surgery (SDC) | payer OTHER ==
[2020-08-22] MEDS ORDERED: PALONOSETRON HCL 0.25 MG/5 ML VIAL IVPUSH ONE (10:00)
[2020-08-22] MEDS ORDERED: DEXAMETHASONE SODIUM PHOSPHATE 12 MG in SODIUM CHLORIDE 50 ML IVPB ONE (10:00)
[2020-08-22] MEDS ORDERED: CARBOPLATIN IVPB ONE (10:30)
[2020-08-22] MEDS ORDERED: SODIUM CHLORIDE IVPB ONE (10:30)
[2020-08-22] MEDS ORDERED: SODIUM CHLORIDE 0.9% IV ONE (11:00)
[2020-08-22] MEDS ORDERED: ETOPOSIDE IV ONE (11:00)
[2020-08-22 13:03] LABS: BASO % 0.4 % (0-2.0); EOS % 1.1 % (0-4.5); HEMATOCRIT 30.7 % (35.4-49); HEMOGLOBIN 10.1 GM/dL (11.7-16.9); LYMPH % 15.1 % (8-40); MCH 32.3 pg (25.7-33.7); MCHC 32.8 g/dl (32.0-35.9); MEAN CELL VOLUME 98.3 fl (80-96); MEAN PLT VOLUME 7.5 fl (7.5-11.1); MONO % 6.6 % (3.8-10.2); NEUT % 76.8 % (42.8-82.8); PLATELET COUNT 233 K/MM3 (134-434); RBC 3.12 M/mm3 (4.00-5.60); WHITE BLOOD COUNT 9.5 K/mm3 (4.0-10.0)
[2020-08-22 13:28] LABS: POTASSIUM 4.7 mmol/L (3.5-5.1)
[2020-08-22 13:30] LABS: CALCIUM 8.9 mg/dL (8.5-10.1)
[2020-08-22 13:31] LABS: BLOOD UREA NITROGEN 15.6 mg/dL (7-18)
[2020-08-22 13:34] LABS: CREATININE 0.7 mg/dL (0.55-1.3)
[2020-08-22 13:35] LABS: BILIRUBIN,TOTAL 0.4 mg/dL (0.2-1)
[2020-08-22 13:36] LABS: TOT PROT 6.6 g/dl (6.4-8.2)
[2020-08-22 18:48] VITALS: PULSE 79; TEMP 98.2
[2020-08-22 18:49] VITALS: BP 136/56
== END 2020-08-22 18:51 | disposition home or self-care (01) ==
LOC: JONCCHEMO 07:54
PROVIDERS: ATTEND Internal Medicine Hematology & Oncology
DX: Z51.11 Encounter for antineoplastic chemotherapy (principal); C34.90 Malignant neoplasm of unspecified part of unspecified bronchus or lung
CPT/HCPCS: 36415; 80053; 85025; 96375; 96411; 96413; 96415; J2469; J9181

== ENCOUNTER 2020-08-23 06:32 | Day surgery (SDC) | payer OTHER ==
[2020-08-23] MEDS ORDERED: PROCHLORPERAZINE MALEATE 5 MG TABLET PO ONE (10:00)
[2020-08-23] MEDS ORDERED: DEXAMETHASONE SODIUM PHOSPHATE 12 MG in SODIUM CHLORIDE 50 ML IVPB ONE (10:00)
[2020-08-23] MEDS ORDERED: ETOPOSIDE IV ONE (10:30)
[2020-08-23] MEDS ORDERED: SODIUM CHLORIDE 0.9% IV ONE (10:30)
[2020-08-23 15:39] VITALS: TEMP 97.7
[2020-08-23 16:33] VITALS: BP 125/53; PULSE 76
== END 2020-08-23 16:05 | disposition home or self-care (01) ==
LOC: JONCCHEMO 06:32
PROVIDERS: ATTEND Internal Medicine Hematology & Oncology
DX: Z51.11 Encounter for antineoplastic chemotherapy (principal); C34.90 Malignant neoplasm of unspecified part of unspecified bronchus or lung
CPT/HCPCS: 96375; 96413; 96415

== ENCOUNTER 2020-08-24 06:27 | Day surgery (SDC) | payer OTHER ==
[2020-08-24] MEDS ORDERED: ZOLEDRONIC ACID 4 MG in SODIUM CHLORIDE 100 ML IVPB ONE (10:00)
[2020-08-24] MEDS ORDERED: PROCHLORPERAZINE MALEATE 5 MG TABLET PO ONE (10:00)
[2020-08-24] MEDS ORDERED: DEXAMETHASONE SODIUM PHOSPHATE 12 MG in SODIUM CHLORIDE 50 ML IVPB ONE (10:00)
[2020-08-24] MEDS ORDERED: SODIUM CHLORIDE 1,000 ML IV SCH (10:00)
[2020-08-24] MEDS ORDERED: SODIUM CHLORIDE 0.9% IV ONE (10:30)
[2020-08-24] MEDS ORDERED: ETOPOSIDE IV ONE (10:30)
[2020-08-24] MEDS ORDERED: PEGFILGRASTIM (NEULASTA ONPRO) 6 MG/0.6 ML KIT SQ ONE (12:30)
[2020-08-24] MEDS ORDERED: PORTA CATH FLUSH 10 ML IVPUSH ONE (18:06)
[2020-08-24 18:07] VITALS: BP 134/51; PULSE 81; TEMP 98.3
== END 2020-08-24 16:30 | disposition home or self-care (01) ==
LOC: JONCCHEMO 06:27
PROVIDERS: ATTEND Internal Medicine Hematology & Oncology
PROC: 3E04305 Introduction of Other Antineoplastic into Central Vein, Percutaneous Approach (ICD-10-PCS; principal; 2020-08-24)
PROC: 3E013GC Introduction of Other Therapeutic Substance into Subcutaneous Tissue, Percutaneous Approach (ICD-10-PCS; 2020-08-24)
DX: Z51.11 Encounter for antineoplastic chemotherapy (principal); C34.90 Malignant neoplasm of unspecified part of unspecified bronchus or lung; J84.10 Pulmonary fibrosis, unspecified; M89.551 Osteolysis, right thigh; E11.9 Type 2 diabetes mellitus without complications; Z99.81 Dependence on supplemental oxygen
CPT/HCPCS: 96367; 96372; 96413; 96415; J2505; J3489

== ENCOUNTER 2020-09-12 07:55 | Day surgery (SDC) | payer OTHER ==
[2020-09-12] MEDS ORDERED: PALONOSETRON HCL 0.25 MG/5 ML VIAL IVPUSH ONE (10:00)
[2020-09-12] MEDS ORDERED: DEXAMETHASONE SODIUM PHOSPHATE 12 MG in SODIUM CHLORIDE 50 ML IVPB ONE (10:00)
[2020-09-12] MEDS ORDERED: CARBOPLATIN IVPB ONE ×2 (10:30→18:30)
[2020-09-12] MEDS ORDERED: SODIUM CHLORIDE IVPB ONE ×2 (10:30→18:30)
[2020-09-12] MEDS ORDERED: SODIUM CHLORIDE 0.9% IV ONE (11:00)
[2020-09-12] MEDS ORDERED: ETOPOSIDE IV ONE (11:00)
[2020-09-12 15:45] LABS: BASO % 0.4 % (0-2.0); EOS % 0.8 % (0-4.5); HEMATOCRIT 29.2 % (35.4-49); HEMOGLOBIN 9.6 GM/dL (11.7-16.9); LYMPH % 15.1 % (8-40); MEAN PLT VOLUME 7.7 fl (7.5-11.1); MONO % 6.7 % (3.8-10.2); PLATELET COUNT 248 K/MM3 (134-434); RBC 3.01 M/mm3 (4.00-5.60); RDW 16.3 % (11.9-15.9)
[2020-09-12 16:32] LABS: POTASSIUM 5.1 mmol/L (3.5-5.1)
[2020-09-12 16:35] LABS: ALBUMIN 3.9 g/dl (3.4-5.0); BLOOD UREA NITROGEN 13.7 mg/dL (7-18); CALCIUM 8.6 mg/dL (8.5-10.1)
[2020-09-12 16:39] LABS: CREATININE 0.8 mg/dL (0.55-1.3)
[2020-09-12 16:40] LABS: BILIRUBIN,TOTAL 0.8 mg/dL (0.2-1); TOT PROT 6.6 g/dl (6.4-8.2)
[2020-09-12] MEDS ORDERED: PORTA CATH FLUSH 10 ML IVPUSH ONE (18:37)
[2020-09-12 18:38] VITALS: TEMP 98.3
[2020-09-12 20:17] VITALS: BP 128/54; PULSE 77
== END 2020-09-12 20:22 | disposition home or self-care (01) ==
LOC: JONCCHEMO 07:55
PROVIDERS: ATTEND Internal Medicine Hematology & Oncology
DX: Z51.11 Encounter for antineoplastic chemotherapy (principal); C34.90 Malignant neoplasm of unspecified part of unspecified bronchus or lung; E11.9 Type 2 diabetes mellitus without complications
CPT/HCPCS: 36415; 80053; 85025; 96375; 96413; 96415; 96417; J2469; J9181

== ENCOUNTER 2020-09-13 07:44 | Day surgery (SDC) | payer OTHER ==
[2020-09-13] MEDS ORDERED: PROCHLORPERAZINE MALEATE 5 MG TABLET PO ONE (10:00)
[2020-09-13] MEDS ORDERED: DEXAMETHASONE SODIUM PHOSPHATE 12 MG in SODIUM CHLORIDE 50 ML IVPB ONE (10:00)
[2020-09-13] MEDS ORDERED: SODIUM CHLORIDE 0.9% IV ONE (10:30)
[2020-09-13] MEDS ORDERED: ETOPOSIDE IV ONE (10:30)
[2020-09-13 16:24] VITALS: TEMP 98.2
[2020-09-13 16:27] VITALS: BP 136/67; PULSE 76
== END 2020-09-13 16:20 | disposition home or self-care (01) ==
LOC: JONCCHEMO 07:44
PROVIDERS: ATTEND Internal Medicine Hematology & Oncology
DX: Z51.11 Encounter for antineoplastic chemotherapy (principal); C34.90 Malignant neoplasm of unspecified part of unspecified bronchus or lung
CPT/HCPCS: 96375; 96413; 96415; J9181

== ENCOUNTER 2020-09-14 06:45 | Day surgery (SDC) | payer OTHER ==
[2020-09-14] MEDS ORDERED: DEXAMETHASONE SODIUM PHOSPHATE 12 MG in SODIUM CHLORIDE 50 ML IVPB ONE (10:00)
[2020-09-14] MEDS ORDERED: PROCHLORPERAZINE MALEATE 5 MG TABLET PO ONE (10:00)
[2020-09-14] MEDS ORDERED: SODIUM CHLORIDE 0.9% IV ONE (10:30)
[2020-09-14] MEDS ORDERED: ETOPOSIDE IV ONE (10:30)
[2020-09-14] MEDS ORDERED: PEGFILGRASTIM (NEULASTA ONPRO) 6 MG/0.6 ML KIT SQ ONE (12:30)
[2020-09-14 17:42] VITALS: BP 126/53; PULSE 78; TEMP 98.3
== END 2020-09-14 15:45 | disposition home or self-care (01) ==
LOC: JONCCHEMO 06:45
PROVIDERS: ATTEND Internal Medicine Hematology & Oncology
PROC: 3E04305 Introduction of Other Antineoplastic into Central Vein, Percutaneous Approach (ICD-10-PCS; principal; 2020-09-14)
PROC: 3E013GC Introduction of Other Therapeutic Substance into Subcutaneous Tissue, Percutaneous Approach (ICD-10-PCS; 2020-09-14)
DX: Z51.11 Encounter for antineoplastic chemotherapy (principal); C34.90 Malignant neoplasm of unspecified part of unspecified bronchus or lung
CPT/HCPCS: 96372; 96375; 96413; 96415; J2505; J9181

== ENCOUNTER 2020-09-19 07:57 | Day surgery (SDC) | payer OTHER ==
[2020-09-19] MEDS ORDERED: ZOLEDRONIC ACID 4 MG in SODIUM CHLORIDE 100 ML IVPB ONE (10:00)
[2020-09-19 13:26] LABS: BASO % 0.2 % (0-2.0); EOS % 0.8 % (0-4.5); HEMATOCRIT 26.7 % (35.4-49); HEMOGLOBIN 8.8 GM/dL (11.7-16.9); LYMPH % 5.9 % (8-40); MCH 31.7 pg (25.7-33.7); MCHC 32.8 g/dl (32.0-35.9); MEAN CELL VOLUME 96.5 fl (80-96); MEAN PLT VOLUME 8.2 fl (7.5-11.1); NEUT % 89.1 % (42.8-82.8); PLATELET COUNT 161 K/MM3 (134-434); RBC 2.77 M/mm3 (4.00-5.60); RDW 15.9 % (11.9-15.9); WHITE BLOOD COUNT 28.5 K/mm3 (4.0-10.0)
[2020-09-19 13:43] LABS: POTASSIUM 4.3 mmol/L (3.5-5.1)
[2020-09-19 13:45] LABS: ALBUMIN 3.6 g/dl (3.4-5.0); CALCIUM 8.2 mg/dL (8.5-10.1)
[2020-09-19 13:46] LABS: BLOOD UREA NITROGEN 13.8 mg/dL (7-18); MAGNESIUM 1.5 mg/dL (1.8-2.4)
[2020-09-19 13:49] LABS: CREATININE 0.7 mg/dL (0.55-1.3)
[2020-09-19 13:50] LABS: BILIRUBIN,TOTAL 0.5 mg/dL (0.2-1)
[2020-09-19 14:35] LABS: ANISOCYTOSIS 0; MACROCYTOSIS 0; PLATELET ESTIMATE NORMAL
[2020-09-19 18:45] VITALS: BP 129/74; PULSE 65; TEMP 97.9
== END 2020-09-19 15:00 | disposition home or self-care (01) ==
LOC: JONCCHEMO 07:57
PROVIDERS: ATTEND Internal Medicine Hematology & Oncology
PROC: 3E033GC Introduction of Other Therapeutic Substance into Peripheral Vein, Percutaneous Approach (ICD-10-PCS; principal; 2020-09-19)
DX: C34.90 Malignant neoplasm of unspecified part of unspecified bronchus or lung (principal); E11.9 Type 2 diabetes mellitus without complications; Z76.89 Persons encountering health services in other specified circumstances
CPT/HCPCS: 36415; 80053; 83735; 85025; 96374; J3489

== ENCOUNTER 2020-10-18 08:00 | Day surgery (SDC) | payer OTHER ==
[2020-10-18] MEDS ORDERED: ZOLEDRONIC ACID 4 MG in SODIUM CHLORIDE 100 ML IVPB ONE (10:00)
[2020-10-18 13:06] LABS: BASO % 0.3 % (0-2.0); HEMATOCRIT 28.7 % (35.4-49); HEMOGLOBIN 9.3 GM/dL (11.7-16.9); LYMPH % 15.9 % (8-40); MCH 29.9 pg (25.7-33.7); MCHC 32.5 g/dl (32.0-35.9); MEAN CELL VOLUME 91.8 fl (80-96); MEAN PLT VOLUME 7.5 fl (7.5-11.1); NEUT % 72.8 % (42.8-82.8); PLATELET COUNT 204 K/MM3 (134-434); RBC 3.13 M/mm3 (4.00-5.60); RDW 16.1 % (11.9-15.9); WHITE BLOOD COUNT 9.6 K/mm3 (4.0-10.0)
[2020-10-18 13:29] LABS: POTASSIUM 4.3 mmol/L (3.5-5.1)
[2020-10-18 13:31] LABS: ALBUMIN 3.7 g/dl (3.4-5.0); CALCIUM 9.2 mg/dL (8.5-10.1)
[2020-10-18 13:35] LABS: CREATININE 0.8 mg/dL (0.55-1.3)
[2020-10-18 13:36] LABS: BILIRUBIN,TOTAL 0.8 mg/dL (0.2-1); TOT PROT 7.1 g/dl (6.4-8.2)
[2020-10-18 14:50] VITALS: TEMP 97.8
[2020-10-18 14:51] VITALS: BP 117/48; PULSE 94
== END 2020-10-18 14:41 | disposition home or self-care (01) ==
LOC: JONCCHEMO 08:00
PROVIDERS: ATTEND Internal Medicine Hematology & Oncology
PROC: 3E043GC Introduction of Other Therapeutic Substance into Central Vein, Percutaneous Approach (ICD-10-PCS; principal; 2020-10-18)
DX: C34.90 Malignant neoplasm of unspecified part of unspecified bronchus or lung (principal); Z76.89 Persons encountering health services in other specified circumstances
CPT/HCPCS: 36415; 80053; 85025; 96365; J3489

== ENCOUNTER 2020-11-01 07:59 | Day surgery (SDC) | payer OTHER ==
[2020-11-01] MEDS ORDERED: SODIUM CHLORIDE 250 ML IVPB ONE (11:00)
[2020-11-01] MEDS ORDERED: PALONOSETRON HCL 0.25 MG/5 ML VIAL IVPUSH ONE (11:00)
[2020-11-01] MEDS ORDERED: DEXAMETHASONE SODIUM PHOSPHATE 10 MG in SODIUM CHLORIDE 50 ML IVPB ONE (11:00)
[2020-11-01] MEDS ORDERED: SODIUM CHLORIDE IV ONE ×2 (11:30→15:00)
[2020-11-01] MEDS ORDERED: LURBINECTEDIN IV ONE ×2 (11:30→15:00)
[2020-11-01] MEDS ORDERED: SODIUM CHLORIDE 250 ML IV STA (13:53)
[2020-11-01 14:21] LABS: BASO % 0.3 % (0-2.0); EOS % 1.7 % (0-4.5); HEMATOCRIT 26.7 % (35.4-49); HEMOGLOBIN 8.9 GM/dL (11.7-16.9); LYMPH % 19.3 % (8-40); MCH 29.8 pg (25.7-33.7); MCHC 33.2 g/dl (32.0-35.9); MEAN CELL VOLUME 89.6 fl (80-96); MEAN PLT VOLUME 7.4 fl (7.5-11.1); MONO % 8.5 % (3.8-10.2); NEUT % 70.2 % (42.8-82.8); PLATELET COUNT 193 K/MM3 (134-434); RBC 2.98 M/mm3 (4.00-5.60); RDW 15.7 % (11.9-15.9); WHITE BLOOD COUNT 7.4 K/mm3 (4.0-10.0)
[2020-11-01 14:34] LABS: POTASSIUM 4.1 mmol/L (3.5-5.1)
[2020-11-01 14:36] LABS: ALBUMIN 3.6 g/dl (3.4-5.0); BLOOD UREA NITROGEN 15.6 mg/dL (7-18); CALCIUM 8.8 mg/dL (8.5-10.1)
[2020-11-01 14:39] LABS: CREATININE 0.8 mg/dL (0.55-1.3)
[2020-11-01 14:41] LABS: BILIRUBIN,TOTAL 0.5 mg/dL (0.2-1); TOT PROT 6.8 g/dl (6.4-8.2)
[2020-11-01] MEDS ORDERED: PEGFILGRASTIM (NEULASTA ONPRO) 6 MG/0.6 ML KIT SQ ONE (15:00)
[2020-11-01 18:13] VITALS: TEMP 98.2
[2020-11-01 18:22] VITALS: BP 118/51; PULSE 72
[2020-11-01] MEDS ORDERED: PORTA CATH FLUSH 10 ML IVPUSH ONE (18:22)
== END 2020-11-01 17:55 | disposition home or self-care (01) ==
LOC: JONCCHEMO 07:59
PROVIDERS: ATTEND Internal Medicine Hematology & Oncology
DX: Z51.11 Encounter for antineoplastic chemotherapy (principal); C34.90 Malignant neoplasm of unspecified part of unspecified bronchus or lung
CPT/HCPCS: 36415; 80053; 85025; 96361; 96372; 96375; 96413; J2469; J2505; J9223

== ENCOUNTER 2020-11-15 07:59 | Day surgery (SDC) | payer OTHER ==
[2020-11-15] MEDS ORDERED: ZOLEDRONIC ACID 4 MG in SODIUM CHLORIDE 100 ML IVPB ONE (10:00)
[2020-11-15 13:00] LABS: BASO % 0.1 % (0-2.0); EOS % 0.5 % (0-4.5); HEMATOCRIT 25.1 % (35.4-49); HEMOGLOBIN 8.5 GM/dL (11.7-16.9); LYMPH % 11.5 % (8-40); MCH 30.4 pg (25.7-33.7); MCHC 33.9 g/dl (32.0-35.9); MEAN CELL VOLUME 89.6 fl (80-96); MEAN PLT VOLUME 7.3 fl (7.5-11.1); MONO % 5.3 % (3.8-10.2); NEUT % 82.6 % (42.8-82.8); PLATELET COUNT 203 K/MM3 (134-434); RDW 16.6 % (11.9-15.9); WHITE BLOOD COUNT 10.9 K/mm3 (4.0-10.0)
[2020-11-15 13:22] LABS: CALCIUM 9.1 mg/dL (8.5-10.1)
[2020-11-15 13:23] LABS: ALBUMIN 3.6 g/dl (3.4-5.0); BLOOD UREA NITROGEN 14.9 mg/dL (7-18)
[2020-11-15 13:26] LABS: CREATININE 0.7 mg/dL (0.55-1.3)
[2020-11-15 13:27] LABS: BILIRUBIN,TOTAL 0.6 mg/dL (0.2-1); TOT PROT 6.7 g/dl (6.4-8.2)
[2020-11-15 18:34] VITALS: TEMP 98.1
[2020-11-15 18:38] VITALS: BP 125/59; PULSE 90
== END 2020-11-15 14:30 | disposition home or self-care (01) ==
LOC: JONCCHEMO 07:59
PROVIDERS: ATTEND Internal Medicine Hematology & Oncology
DX: Z51.11 Encounter for antineoplastic chemotherapy (principal); C34.90 Malignant neoplasm of unspecified part of unspecified bronchus or lung
CPT/HCPCS: 36415; 80053; 85025; 96413; J3489

== ENCOUNTER 2020-11-23 07:13 | Day surgery (SDC) | payer OTHER ==
[2020-11-23] MEDS ORDERED: SODIUM CHLORIDE 250 ML IVPB ONE (11:00)
[2020-11-23] MEDS ORDERED: PALONOSETRON HCL 0.25 MG/5 ML VIAL IVPUSH ONE (11:30)
[2020-11-23] MEDS ORDERED: DEXAMETHASONE SODIUM PHOSPHATE 10 MG in SODIUM CHLORIDE 50 ML IVPB ONE (11:30)
[2020-11-23] MEDS ORDERED: LURBINECTEDIN IV ONE (12:00)
[2020-11-23] MEDS ORDERED: SODIUM CHLORIDE IV ONE (12:00)
[2020-11-23] MEDS ORDERED: PEGFILGRASTIM (NEULASTA ONPRO) 6 MG/0.6 ML KIT SQ ONE (13:00)
[2020-11-23 14:13] LABS: BASO % 0.4 % (0-2.0); EOS % 0.5 % (0-4.5); HEMATOCRIT 24.4 % (35.4-49); HEMOGLOBIN 8.1 GM/dL (11.7-16.9); LYMPH % 10.8 % (8-40); MCH 29.8 pg (25.7-33.7); MCHC 33.1 g/dl (32.0-35.9); MEAN CELL VOLUME 90.1 fl (80-96); MEAN PLT VOLUME 7.1 fl (7.5-11.1); MONO % 7.5 % (3.8-10.2); NEUT % 80.8 % (42.8-82.8); PLATELET COUNT 287 K/MM3 (134-434); RBC 2.71 M/mm3 (4.00-5.60); RDW 17.6 % (11.9-15.9); WHITE BLOOD COUNT 8.1 K/mm3 (4.0-10.0)
[2020-11-23 14:23] LABS: CALCIUM 9.3 mg/dL (8.5-10.1)
[2020-11-23 14:24] LABS: ALBUMIN 3.5 g/dl (3.4-5.0); BLOOD UREA NITROGEN 13.5 mg/dL (7-18)
[2020-11-23 14:27] LABS: CREATININE 0.7 mg/dL (0.55-1.3)
[2020-11-23 14:29] LABS: BILIRUBIN,TOTAL 0.8 mg/dL (0.2-1); TOT PROT 6.7 g/dl (6.4-8.2)
[2020-11-23 16:41] VITALS: PULSE 91; TEMP 98.5
[2020-11-23 17:07] VITALS: BP 136/56
== END 2020-11-23 17:08 | disposition home or self-care (01) ==
LOC: JONCCHEMO 07:13
PROVIDERS: ATTEND Internal Medicine Hematology & Oncology
DX: Z51.11 Encounter for antineoplastic chemotherapy (principal); C34.90 Malignant neoplasm of unspecified part of unspecified bronchus or lung; C79.51 Secondary malignant neoplasm of bone
CPT/HCPCS: 36415; 80053; 85025; 96361; 96375; 96413; J2469; J2505; J9223

== ENCOUNTER 2020-12-03 06:15 | Day surgery (SDC) | payer OTHER ==
[2020-12-03 09:21] LABS: BASO % 0.2 % (0-2.0); EOS % 0.5 % (0-4.5); HEMATOCRIT 23.1 % (35.4-49); HEMOGLOBIN 7.7 GM/dL (11.7-16.9); LYMPH % 7.2 % (8-40); MCH 30.3 pg (25.7-33.7); MCHC 33.3 g/dl (32.0-35.9); MEAN PLT VOLUME 7.5 fl (7.5-11.1); MONO % 5.7 % (3.8-10.2); NEUT % 86.4 % (42.8-82.8); PLATELET COUNT 183 K/MM3 (134-434); RBC 2.53 M/mm3 (4.00-5.60); RDW 18.4 % (11.9-15.9); WHITE BLOOD COUNT 19.7 K/mm3 (4.0-10.0)
[2020-12-03 12:31] LABS: ANISOCYTOSIS 1+; PLATELET ESTIMATE NORMAL
[2020-12-04 06:39] VITALS: BP 106/52; PULSE 99; TEMP 97.8
== END 2020-12-03 18:19 | disposition home or self-care (01) ==
LOC: JONCBLOOD 06:15
PROVIDERS: ATTEND Internal Medicine Hematology & Oncology
PROC: 30233N1 Transfusion of Nonautologous Red Blood Cells into Peripheral Vein, Percutaneous Approach (ICD-10-PCS; principal; 2020-12-03)
DX: D64.9 Anemia, unspecified (principal); C34.90 Malignant neoplasm of unspecified part of unspecified bronchus or lung; C79.51 Secondary malignant neoplasm of bone
CPT/HCPCS: 36415; 36430; 36511; 85025; 86850; 86900; 86901; 86922; P9038; P9058

== ENCOUNTER 2020-12-13 07:32 | Day surgery (SDC) | payer OTHER ==
[2020-12-13] MEDS ORDERED: SODIUM CHLORIDE 250 ML IV ONE (10:00)
[2020-12-13] MEDS ORDERED: DEXAMETHASONE SODIUM PHOSPHATE 10 MG in SODIUM CHLORIDE 50 ML IVPB ONE (10:00)
[2020-12-13] MEDS ORDERED: PALONOSETRON HCL 0.25 MG/5 ML VIAL IVPUSH ONE (10:00)
[2020-12-13] MEDS ORDERED: SODIUM CHLORIDE IV ONE (10:30)
[2020-12-13] MEDS ORDERED: LURBINECTEDIN IV ONE (10:30)
[2020-12-13] MEDS ORDERED: PEGFILGRASTIM (NEULASTA ONPRO) 6 MG/0.6 ML KIT SQ ONE (11:30)
[2020-12-13 14:28] LABS: HEMATOCRIT 28.6 % (35.4-49); HEMOGLOBIN 9.8 GM/dL (11.7-16.9); MCH 31.1 pg (25.7-33.7); MCHC 34.2 g/dl (32.0-35.9); MEAN CELL VOLUME 91.1 fl (80-96); RBC 3.14 M/mm3 (4.00-5.60); RDW 17.3 % (11.9-15.9); WHITE BLOOD COUNT 14.5 K/mm3 (4.0-10.0)
[2020-12-13 14:29] LABS: BASO % 0.2 % (0-2.0); EOS % 0.4 % (0-4.5); LYMPH % 6.8 % (8-40); MEAN PLT VOLUME 7.4 fl (7.5-11.1); MONO % 6.9 % (3.8-10.2); NEUT % 85.7 % (42.8-82.8); PLATELET COUNT 199 K/MM3 (134-434)
[2020-12-13 14:59] LABS: ALBUMIN 3.8 g/dl (3.4-5.0); BLOOD UREA NITROGEN 8.9 mg/dL (7-18); CALCIUM 8.8 mg/dL (8.5-10.1)
[2020-12-13 15:03] LABS: CREATININE 0.4 mg/dL (0.55-1.3)
[2020-12-13 15:04] LABS: TOT PROT 6.5 g/dl (6.4-8.2)
[2020-12-13 15:38] LABS: ANISOCYTOSIS 1+; MACROCYTOSIS 0; OVALOCYTE 1+; PLATELET ESTIMATE NORMAL; TEAR DROP CELLS 1+
[2020-12-13 17:00] VITALS: BP 129/50; PULSE 93
[2020-12-14 08:12] VITALS: TEMP 98
== END 2020-12-13 17:16 | disposition home or self-care (01) ==
LOC: JONCCHEMO 07:32
PROVIDERS: ATTEND Internal Medicine Hematology & Oncology
PROC: 3E04305 Introduction of Other Antineoplastic into Central Vein, Percutaneous Approach (ICD-10-PCS; principal; 2020-12-13)
PROC: 3E013GC Introduction of Other Therapeutic Substance into Subcutaneous Tissue, Percutaneous Approach (ICD-10-PCS; 2020-12-13)
DX: Z51.11 Encounter for antineoplastic chemotherapy (principal); C34.90 Malignant neoplasm of unspecified part of unspecified bronchus or lung; C79.51 Secondary malignant neoplasm of bone
CPT/HCPCS: 36415; 80053; 85025; 96361; 96372; 96375; 96413; J2469; J2505; J9223

== ENCOUNTER 2020-12-20 07:22 | Day surgery (SDC) | payer OTHER ==
[2020-12-20 14:15] LABS: BASO % 0.3 % (0-2.0); EOS % 0.7 % (0-4.5); HEMATOCRIT 26.8 % (35.4-49); HEMOGLOBIN 8.8 GM/dL (11.7-16.9); LYMPH % 4.8 % (8-40); MCH 30.3 pg (25.7-33.7); MCHC 32.7 g/dl (32.0-35.9); MEAN CELL VOLUME 92.5 fl (80-96); MEAN PLT VOLUME 7.4 fl (7.5-11.1); MONO % 3.5 % (3.8-10.2); NEUT % 90.7 % (42.8-82.8); PLATELET COUNT 153 K/MM3 (134-434); RBC 2.89 M/mm3 (4.00-5.60); RDW 18.3 % (11.9-15.9)
[2020-12-20 14:22] LABS: WHITE BLOOD COUNT 40.2 K/mm3 (4.0-10.0)
[2020-12-20 14:35] LABS: CALCIUM 8.9 mg/dL (8.5-10.1)
[2020-12-20 14:36] LABS: ALBUMIN 3.6 g/dl (3.4-5.0); BLOOD UREA NITROGEN 25.5 mg/dL (7-18)
[2020-12-20 14:39] LABS: ANISOCYTOSIS 1+; CREATININE 0.8 mg/dL (0.55-1.3); MACROCYTOSIS 0; PLATELET ESTIMATE DECREASED
[2020-12-20 14:40] LABS: BILIRUBIN,TOTAL 0.6 mg/dL (0.2-1)
[2020-12-20 14:41] LABS: TOT PROT 6.4 g/dl (6.4-8.2)
[2020-12-20] MEDS ORDERED: ZOLEDRONIC ACID 4 MG in SODIUM CHLORIDE 100 ML IVPB ONE (16:00)
[2020-12-20 16:47] VITALS: TEMP 97.8
[2020-12-20 16:48] VITALS: BP 132/49; PULSE 94
== END 2020-12-20 16:40 | disposition home or self-care (01) ==
LOC: JONCCHEMO 07:22
PROVIDERS: ATTEND Internal Medicine Hematology & Oncology
PROC: 3E043GC Introduction of Other Therapeutic Substance into Central Vein, Percutaneous Approach (ICD-10-PCS; principal; 2020-12-20)
DX: C34.90 Malignant neoplasm of unspecified part of unspecified bronchus or lung (principal); C79.51 Secondary malignant neoplasm of bone
CPT/HCPCS: 36415; 80053; 85025; 96365; J3489

== ENCOUNTER 2020-12-22 09:27 | Inpatient (IN) | payer OTHER ==
[2020-12-22] MEDS ORDERED: morphine CARPU-JECT 2 MG/1 ML DISP.SYRIN IVPUSH ONE (10:18)
[2020-12-22] MEDS ORDERED: morphine CARPU-JECT 4 MG/1 ML DISP.SYRIN IVPUSH ONE ×2 (10:24→18:00)
[2020-12-22] MEDS ORDERED: MORPHINE SULFATE 2 MG/ML VIAL ONE ×2 (10:27→11:27)
[2020-12-22 10:47] LABS: BASO % 0.3 % (0-2.0); EOS % 0.7 % (0-4.5); HEMATOCRIT 26.7 % (35.4-49); HEMOGLOBIN 8.7 GM/dL (11.7-16.9); LYMPH % 4.7 % (8-40); MCHC 32.5 g/dl (32.0-35.9); MEAN CELL VOLUME 92.3 fl (80-96); MEAN PLT VOLUME 7.6 fl (7.5-11.1); MONO % 5.3 % (3.8-10.2); PLATELET COUNT 114 K/MM3 (134-434); RBC 2.89 M/mm3 (4.00-5.60); RDW 18.3 % (11.9-15.9)
[2020-12-22 10:54] LABS: WHITE BLOOD COUNT 34.9 K/mm3 (4.0-10.0)
[2020-12-22 11:14] LABS: ALBUMIN 3.9 g/dl (3.4-5.0); BLOOD UREA NITROGEN 20.6 mg/dL (7-18); CALCIUM 8.1 mg/dL (8.5-10.1)
[2020-12-22 11:18] LABS: CREATININE 0.7 mg/dL (0.55-1.3)
[2020-12-22 11:19] LABS: BILIRUBIN,TOTAL 0.7 mg/dL (0.2-1); TOT PROT 6.7 g/dl (6.4-8.2)
[2020-12-22 11:55] LABS: ANISOCYTOSIS 1+; MACROCYTOSIS 0; PLATELET ESTIMATE DECREASED
[2020-12-22] MEDS ORDERED: ALBUTEROL SO4 HFA INHALER IH PRN (16:30)
[2020-12-22] MEDS ORDERED: oxyCODONE HCL 5 MG TABLET ONE (16:38)
[2020-12-22] MEDS: oxyCODONE HCL 5 MG TABLET PO PRN ×2 (16:41→22:34)
[2020-12-22] MEDS ORDERED: morphine SULFATE 4 MG/ML VIAL ONE (18:31)
[2020-12-22] MEDS ORDERED: APIXABAN 5 MG TABLET PO SCH (22:00)
[2020-12-22] MEDS ORDERED: HEPARIN NA (PORCINE) 5,000 UNITS/ML 1ML VIAL SQ SCH (22:00)
[2020-12-22] MEDS: SENNOSIDES 8.6MG TABLET (FP) PO SCH (22:34)
[2020-12-22] MEDS: GABAPENTIN 100 MG CAPSULE PO SCH (22:34)
[2020-12-22] MEDS: METOPROLOL TARTRATE 25 MG TABLET (FP) PO SCH (22:34)
[2020-12-22] MEDS: ROSUVASTATIN CA 10 MG TABLET (FP) PO SCH (22:35)
[2020-12-22] MEDS: MAGNESIUM OXIDE 400 MG TABLET (FP) PO SCH (22:35)
[2020-12-22] MEDS: FLUTICASONE/SALMETEROL 100 MCG/50 MCG DISKUS IH SCH (23:29)
[2020-12-23] MEDS: GABAPENTIN 100 MG CAPSULE PO SCH ×3 (06:15→21:19)
[2020-12-23] MEDS: oxyCODONE HCL 5 MG TABLET PO PRN ×3 (06:15→18:00)
[2020-12-23] MEDS: sitaGLIPtin PHOSPHATE 50 MG TABLET PO SCH (07:56)
[2020-12-23 07:57] LABS: BASO % 0.1 % (0-2.0); EOS % 0.4 % (0-4.5); HEMATOCRIT 25.3 % (35.4-49); HEMOGLOBIN 8.4 GM/dL (11.7-16.9); LYMPH % 6.4 % (8-40); MCH 30.7 pg (25.7-33.7); MCHC 33.3 g/dl (32.0-35.9); MEAN CELL VOLUME 92.1 fl (80-96); MONO % 6.2 % (3.8-10.2); NEUT % 86.9 % (42.8-82.8); PLATELET COUNT 109 K/MM3 (134-434); RBC 2.75 M/mm3 (4.00-5.60); RDW 18.6 % (11.9-15.9); WHITE BLOOD COUNT 25.5 K/mm3 (4.0-10.0)
[2020-12-23 08:03] LABS: ALBUMIN 3.6 g/dl (3.4-5.0); CALCIUM 7.2 mg/dL (8.5-10.1)
[2020-12-23 08:04] LABS: BLOOD UREA NITROGEN 19.1 mg/dL (7-18); MAGNESIUM 1.8 mg/dL (1.8-2.4)
[2020-12-23 08:07] LABS: CREATININE 0.6 mg/dL (0.55-1.3); PHOSPHOROUS 2.8 mg/dL (2.5-4.9)
[2020-12-23 08:08] LABS: BILIRUBIN,TOTAL 0.8 mg/dL (0.2-1); TOT PROT 6.1 g/dl (6.4-8.2)
[2020-12-23 09:21] LABS: ANISOCYTOSIS 1+; MACROCYTOSIS 0; PLATELET ESTIMATE DECREASED
[2020-12-23] MEDS: FLUTICASONE/SALMETEROL 100 MCG/50 MCG DISKUS IH SCH ×2 (09:32→21:28)
[2020-12-23] MEDS: MULTIVITAMINS (DAILY MVI) TABLET (FP) PO SCH (09:32)
[2020-12-23] MEDS: MAGNESIUM OXIDE 400 MG TABLET (FP) PO SCH ×2 (09:32→21:19)
[2020-12-23] MEDS: TAMSULOSIN HCL 0.4 MG CAP PO SCH (09:32)
[2020-12-23] MEDS: METOPROLOL TARTRATE 25 MG TABLET (FP) PO SCH ×2 (09:32→21:19)
[2020-12-23] MEDS: DOCUSATE SODIUM 100 MG CAPSULE (FP) PO PRN (09:34)
[2020-12-23] MEDS: POLYETHYLENE GLYCOL 3350 119 GM BTL PO SCH (09:39)
[2020-12-23] MEDS: TIOTROPIUM BROMIDE 2.5 MCG (SPIRIVA) RESPIMAT INHALER IH SCH (11:27)
[2020-12-23] MEDS: SENNOSIDES 8.6MG TABLET (FP) PO SCH (21:19)
[2020-12-23] MEDS: ACETAMINOPHEN 500 MG TABLET (FP) PO PRN (21:19)
[2020-12-23] MEDS: ROSUVASTATIN CA 10 MG TABLET (FP) PO SCH (21:19)
[2020-12-24] MEDS: oxyCODONE HCL 5 MG TABLET PO PRN ×4 (03:18→22:01)
[2020-12-24] MEDS: sitaGLIPtin PHOSPHATE 50 MG TABLET PO SCH (06:56)
[2020-12-24] MEDS: GABAPENTIN 100 MG CAPSULE PO SCH ×3 (06:56→21:41)
[2020-12-24 08:44] LABS: HEMATOCRIT 23.6 % (35.4-49); HEMOGLOBIN 7.8 GM/dL (11.7-16.9); MCH 30.6 pg (25.7-33.7); MCHC 33.2 g/dl (32.0-35.9); MEAN CELL VOLUME 92.1 fl (80-96); MEAN PLT VOLUME 8.3 fl (7.5-11.1); PLATELET COUNT 106 K/MM3 (134-434); RBC 2.56 M/mm3 (4.00-5.60); RDW 18.3 % (11.9-15.9); WHITE BLOOD COUNT 23.4 K/mm3 (4.0-10.0)
[2020-12-24 08:49] LABS: INR 1.23 (0.83-1.09)
[2020-12-24 09:01] LABS: CHLORIDE 103 mmol/L (98-107); SODIUM 136 mmol/L (136-145)
[2020-12-24 09:03] LABS: ALBUMIN 3.2 g/dl (3.4-5.0); ANION GAP 8 MMOL/L (8-16); CO2 25 mmol/L (21-32)
[2020-12-24 09:04] LABS: BLOOD UREA NITROGEN 19.7 mg/dL (7-18); GLUCOSE,RANDOM 90 mg/dL (74-106)
[2020-12-24 09:06] LABS: CALCIUM 6.8 mg/dL (8.5-10.1); SGOT/AST 126 U/L (15-37); SGPT/ALT 19 U/L (13-61)
[2020-12-24 09:07] LABS: CREATININE 0.6 mg/dL (0.55-1.3)
[2020-12-24 09:08] LABS: BILIRUBIN,TOTAL 0.8 mg/dL (0.2-1); TOT PROT 5.8 g/dl (6.4-8.2)
[2020-12-24 09:11] LABS: ALK PHOS 802 U/L (45-117)
[2020-12-24] MEDS: MULTIVITAMINS (DAILY MVI) TABLET (FP) PO SCH (09:39)
[2020-12-24] MEDS: MAGNESIUM OXIDE 400 MG TABLET (FP) PO SCH ×2 (09:39→21:41)
[2020-12-24] MEDS: POLYETHYLENE GLYCOL 3350 119 GM BTL PO SCH (09:39)
[2020-12-24] MEDS: TIOTROPIUM BROMIDE 2.5 MCG (SPIRIVA) RESPIMAT INHALER IH SCH (09:39)
[2020-12-24] MEDS: FLUTICASONE/SALMETEROL 100 MCG/50 MCG DISKUS IH SCH ×2 (09:39→22:41)
[2020-12-24] MEDS: METOPROLOL TARTRATE 25 MG TABLET (FP) PO SCH ×2 (09:39→21:41)
[2020-12-24] MEDS: TAMSULOSIN HCL 0.4 MG CAP PO SCH (09:39)
[2020-12-24] MEDS ORDERED: CALCIUM GLUCONATE 10% - 1,000 MG/10 ML VIAL ONE (09:48)
[2020-12-24] MEDS ORDERED: INSULIN (NOVOLOG) ASPART 100 UNITS/ML 10ML VIAL ONE (09:49)
[2020-12-24 14:37] LABS: IRON SERUM 50 ug/dL (50-175)
[2020-12-24 14:38] LABS: TOTAL IRON BINDING CAPACITY 198 ug/dL (250-450)
[2020-12-24] MEDS: DRONABINOL 5 MG CAPSULE PO SCH ×2 (15:32→21:41)
[2020-12-24] MEDS: ACETAMINOPHEN 500 MG TABLET (FP) PO PRN (15:34)
[2020-12-24] MEDS: SENNOSIDES 8.6MG TABLET (FP) PO SCH (21:41)
[2020-12-25] MEDS: oxyCODONE HCL 5 MG TABLET PO PRN ×3 (03:50→18:14)
[2020-12-25 05:29] VITALS: PULSE 97
[2020-12-25] MEDS: DRONABINOL 5 MG CAPSULE PO SCH ×2 (05:29→13:13)
[2020-12-25] MEDS: GABAPENTIN 100 MG CAPSULE PO SCH ×2 (05:29→13:12)
[2020-12-25] MEDS: sitaGLIPtin PHOSPHATE 50 MG TABLET PO SCH (06:21)
[2020-12-25 07:22] LABS: HEMOGLOBIN 7.3 GM/dL (11.7-16.9); MCH 31.1 pg (25.7-33.7); MCHC 33.3 g/dl (32.0-35.9); MEAN CELL VOLUME 93.3 fl (80-96); MEAN PLT VOLUME 7.9 fl (7.5-11.1); PLATELET COUNT 116 K/MM3 (134-434); RBC 2.36 M/mm3 (4.00-5.60); RDW 18.6 % (11.9-15.9); WHITE BLOOD COUNT 18.3 K/mm3 (4.0-10.0)
[2020-12-25 08:02] LABS: BLOOD UREA NITROGEN 16.6 mg/dL (7-18); CALCIUM 7.6 mg/dL (8.5-10.1); MAGNESIUM 1.8 mg/dL (1.8-2.4)
[2020-12-25 08:04] LABS: CREATININE 0.6 mg/dL (0.55-1.3)
[2020-12-25] MEDS: TIOTROPIUM BROMIDE 2.5 MCG (SPIRIVA) RESPIMAT INHALER IH SCH (10:23)
[2020-12-25] MEDS: TAMSULOSIN HCL 0.4 MG CAP PO SCH (10:23)
[2020-12-25] MEDS: DOCUSATE SODIUM 100 MG CAPSULE (FP) PO PRN (10:23)
[2020-12-25] MEDS: POLYETHYLENE GLYCOL 3350 119 GM BTL PO SCH (10:23)
[2020-12-25] MEDS: MULTIVITAMINS (DAILY MVI) TABLET (FP) PO SCH (10:23)
[2020-12-25] MEDS: METOPROLOL TARTRATE 25 MG TABLET (FP) PO SCH (10:23)
[2020-12-25] MEDS: FLUTICASONE/SALMETEROL 100 MCG/50 MCG DISKUS IH SCH (10:23)
[2020-12-25] MEDS: MAGNESIUM OXIDE 400 MG TABLET (FP) PO SCH (10:23)
[2020-12-25 12:11] VITALS: BMI 16.9
[2020-12-25 13:40] VITALS: BP 108/53; TEMP 98.1
== END 2020-12-25 18:29 | disposition home health service (06) | DRG 543 ==
LOC: JER 09:27 → JERBED 13:46 → J7W 21:59
PROVIDERS: ADMIT Family Medicine; ATTEND Family Medicine
DX: C79.51 Secondary malignant neoplasm of bone (principal); C34.90 Malignant neoplasm of unspecified part of unspecified bronchus or lung; R64 Cachexia; Z68.1 Body mass index [BMI] 19.9 or less, adult; E46 Unspecified protein-calorie malnutrition; J84.9 Interstitial pulmonary disease, unspecified; I10 Essential (primary) hypertension; E78.5 Hyperlipidemia, unspecified; I48.91 Unspecified atrial fibrillation; D72.829 Elevated white blood cell count, unspecified; E11.9 Type 2 diabetes mellitus without complications; N40.0 Benign prostatic hyperplasia without lower urinary tract symptoms
CPT/HCPCS: 36415; 71045-TC-FY; 71250-TC; 80048; 80053; 82962; 83540; 83550; 83735; 84100; 84443; 85025; 85027; 85610; 87040; 93005; 93010; 97116-GP; 97161-GP; 99285-25; C9803; U0003; U0005

== ENCOUNTER 2021-01-17 07:47 | Day surgery (SDC) | payer OTHER ==
[2021-01-17] MEDS ORDERED: ZOLEDRONIC ACID 4 MG in SODIUM CHLORIDE 100 ML IVPB ONE (10:00)
[2021-01-17 14:55] VITALS: TEMP 97.7
[2021-01-17] MEDS ORDERED: PORTA CATH FLUSH 10 ML IVPUSH ONE ×2 (15:01→16:59)
[2021-01-17 15:08] LABS: BASO % 0.3 % (0-2.0); EOS % 2.8 % (0-4.5); HEMATOCRIT 21.4 % (35.4-49); MCH 31.9 pg (25.7-33.7); MCHC 32.6 g/dl (32.0-35.9); MEAN CELL VOLUME 97.9 fl (80-96); MEAN PLT VOLUME 7.2 fl (7.5-11.1); MONO % 6.6 % (3.8-10.2); NEUT % 77.3 % (42.8-82.8); PLATELET COUNT 97 10^3/uL (134-434); RBC 2.18 M/mm3 (4.00-5.60); RDW 22.2 % (11.9-15.9); WHITE BLOOD COUNT 5.5 K/mm3 (4.0-10.0)
[2021-01-17 15:32] LABS: BLOOD UREA NITROGEN 17.8 mg/dL (7-18); CALCIUM 8.3 mg/dL (8.5-10.1)
[2021-01-17 15:33] LABS: ALBUMIN 3.5 g/dl (3.4-5.0)
[2021-01-17 15:36] LABS: CREATININE 0.6 mg/dL (0.55-1.3)
[2021-01-17 15:37] LABS: BILIRUBIN,TOTAL 0.9 mg/dL (0.2-1); TOT PROT 6.1 g/dl (6.4-8.2)
[2021-01-17 16:30] LABS: ANISOCYTOSIS 2+; MACROCYTOSIS 1+; PLATELET ESTIMATE DECREASED
[2021-01-17 16:56] VITALS: BP 119/80; PULSE 87
== END 2021-01-17 17:05 | disposition home or self-care (01) ==
LOC: JONCCHEMO 07:47
PROVIDERS: ATTEND Internal Medicine Hematology & Oncology
PROC: 3E033GC Introduction of Other Therapeutic Substance into Peripheral Vein, Percutaneous Approach (ICD-10-PCS; principal; 2021-01-17)
DX: C34.90 Malignant neoplasm of unspecified part of unspecified bronchus or lung (principal); C79.51 Secondary malignant neoplasm of bone
CPT/HCPCS: 36415; 36430; 36511; 80053; 85025; 86850; 86900; 86901; 86922; 96365; J3489; P9038; P9058

== ENCOUNTER 2021-01-18 07:28 | Day surgery (SDC) | payer OTHER ==
[2021-01-18] MEDS ORDERED: PORTA CATH FLUSH 10 ML IVPUSH ONE (15:35)
[2021-01-18 18:38] VITALS: BP 100/40; PULSE 92; TEMP 98.5
== END 2021-01-18 18:38 | disposition home or self-care (01) ==
LOC: JONCBLOOD 07:28
PROVIDERS: ATTEND Internal Medicine Hematology & Oncology
PROC: 30233N1 Transfusion of Nonautologous Red Blood Cells into Peripheral Vein, Percutaneous Approach (ICD-10-PCS; principal; 2021-01-18)
DX: D64.9 Anemia, unspecified (principal); C34.90 Malignant neoplasm of unspecified part of unspecified bronchus or lung
CPT/HCPCS: 36430; 36511; 86922; P9038; P9058

== ENCOUNTER 2021-01-21 08:47 | Day surgery (SDC) | payer OTHER ==
[2021-01-21 14:41] LABS: BASO % 0.5 % (0-2.0); EOS % 2.7 % (0-4.5); HEMATOCRIT 25.9 % (35.4-49); HEMOGLOBIN 8.4 GM/dL (11.7-16.9); LYMPH % 16.4 % (8-40); MCH 31.8 pg (25.7-33.7); MCHC 32.6 g/dl (32.0-35.9); MEAN CELL VOLUME 97.5 fl (80-96); MONO % 8.2 % (3.8-10.2); NEUT % 72.2 % (42.8-82.8); PLATELET COUNT 94 10^3/uL (134-434); RBC 2.65 M/mm3 (4.00-5.60); RDW 20.4 % (11.9-15.9); WHITE BLOOD COUNT 5.4 K/mm3 (4.0-10.0)
[2021-01-21 19:15] VITALS: BP 124/45; PULSE 89; TEMP 98
== END 2021-01-21 19:10 | disposition home or self-care (01) ==
LOC: JONCBLOOD 08:47
PROVIDERS: ATTEND Internal Medicine Hematology & Oncology
PROC: 30233N1 Transfusion of Nonautologous Red Blood Cells into Peripheral Vein, Percutaneous Approach (ICD-10-PCS; principal; 2021-01-21)
DX: D64.9 Anemia, unspecified (principal); C34.90 Malignant neoplasm of unspecified part of unspecified bronchus or lung
CPT/HCPCS: 36415; 36430; 36511; 85025; 86850; 86900; 86901; 86922; P9038; P9058

== ENCOUNTER 2021-02-14 05:19 | Day surgery (SDC) | payer OTHER ==
[2021-02-14] MEDS ORDERED: HYDROCORTISONE SOD SUCCINATE 100 MG/2 ML VIAL IVPUSH ONE (10:00)
[2021-02-14] MEDS ORDERED: EPINEPHrine/PF 1 MG/1 ML (1:1,000) AMPULE IM ONE (10:00)
[2021-02-14] MEDS ORDERED: ZOLEDRONIC ACID 4 MG in SODIUM CHLORIDE 100 ML IVPB ONE (10:00)
[2021-02-14 14:17] LABS: BASO % 0.5 % (0-2.0); EOS % 1.4 % (0-4.5); HEMATOCRIT 21.9 % (35.4-49); HEMOGLOBIN 7.3 GM/dL (11.7-16.9); LYMPH % 15.7 % (8-40); MCH 33.2 pg (25.7-33.7); MCHC 33.1 g/dl (32.0-35.9); MEAN CELL VOLUME 100.5 fl (80-96); MEAN PLT VOLUME 7.7 fl (7.5-11.1); MONO % 10.6 % (3.8-10.2); NEUT % 71.8 % (42.8-82.8); PLATELET COUNT 63 10^3/uL (134-434); RBC 2.18 M/mm3 (4.00-5.60); RDW 20.4 % (11.9-15.9); WHITE BLOOD COUNT 5.5 K/mm3 (4.0-10.0)
[2021-02-14 14:40] LABS: CALCIUM 8.2 mg/dL (8.5-10.1)
[2021-02-14 14:41] LABS: ALBUMIN 3.3 g/dl (3.4-5.0); BLOOD UREA NITROGEN 20.8 mg/dL (7-18)
[2021-02-14 14:43] LABS: CREATININE 0.5 mg/dL (0.55-1.3)
[2021-02-14 14:45] LABS: BILIRUBIN,TOTAL 1.4 mg/dL (0.2-1); TOT PROT 5.8 g/dl (6.4-8.2)
[2021-02-14 14:55] LABS: ANISOCYTOSIS 1+; MACROCYTOSIS 1+; PLATELET ESTIMATE DECREASED
[2021-02-14] MEDS ORDERED: ZOLEDRONIC ACID 3 MG in SODIUM CHLORIDE 100 ML IVPB ONE (14:57)
[2021-02-14 17:10] VITALS: BP 100/42; PULSE 89; TEMP 98.2
== END 2021-02-14 16:00 | disposition home or self-care (01) ==
LOC: JONCCHEMO 05:19
PROVIDERS: ATTEND Internal Medicine Hematology & Oncology
PROC: 3E043GC Introduction of Other Therapeutic Substance into Central Vein, Percutaneous Approach (ICD-10-PCS; principal; 2021-02-14)
DX: C34.90 Malignant neoplasm of unspecified part of unspecified bronchus or lung (principal); Z76.89 Persons encountering health services in other specified circumstances
CPT/HCPCS: 36415; 80053; 85025; 96365; J3489

== ENCOUNTER 2021-02-15 08:29 | Day surgery (SDC) | payer OTHER ==
[2021-02-15] MEDS ORDERED: PORTA CATH FLUSH 10 ML IVPUSH ONE (14:57)
[2021-02-15 17:41] VITALS: BP 129/49; PULSE 91; TEMP 98.2
== END 2021-02-15 17:15 | disposition home or self-care (01) ==
LOC: JONCBLOOD 08:29
PROVIDERS: ATTEND Internal Medicine Hematology & Oncology
PROC: 30233N1 Transfusion of Nonautologous Red Blood Cells into Peripheral Vein, Percutaneous Approach (ICD-10-PCS; principal; 2021-02-15)
DX: D64.9 Anemia, unspecified (principal); C34.90 Malignant neoplasm of unspecified part of unspecified bronchus or lung
CPT/HCPCS: 36430; 86850; 86900; 86901; 86922; P9058

== ENCOUNTER 2021-02-18 13:25 | Inpatient (IN) | payer OTHER ==
[2021-02-18 14:25] VITALS: BMI 17.2
[2021-02-18] MEDS ORDERED: morphine CARPU-JECT 4 MG/1 ML DISP.SYRIN IVPUSH ONE (14:46)
[2021-02-18] MEDS ORDERED: oxyCODONE HCL 5 MG TABLET PO ONE (14:46)
[2021-02-18] MEDS ORDERED: morphine SULFATE 4 MG/ML VIAL ONE (15:32)
[2021-02-18] MEDS ORDERED: oxyCODONE HCL 5 MG TABLET ONE (15:33)
[2021-02-18 15:52] LABS: BASO % 0.4 % (0-2.0); EOS % 0.4 % (0-4.5); HEMOGLOBIN 9.5 GM/dL (11.7-16.9); LYMPH % 11.8 % (8-40); MCH 32.2 pg (25.7-33.7); MCHC 33.9 g/dl (32.0-35.9); MEAN CELL VOLUME 95.1 fl (80-96); MEAN PLT VOLUME 7.8 fl (7.5-11.1); MONO % 8.8 % (3.8-10.2); NEUT % 78.6 % (42.8-82.8); RBC 2.95 M/mm3 (4.00-5.60); RDW 20.9 % (11.9-15.9); WHITE BLOOD COUNT 6.1 K/mm3 (4.0-10.0)
[2021-02-18 16:08] LABS: ALBUMIN 3.3 g/dl (3.4-5.0); CALCIUM 8.4 mg/dL (8.5-10.1)
[2021-02-18 16:09] LABS: BLOOD UREA NITROGEN 41.4 mg/dL (7-18)
[2021-02-18 16:12] LABS: CREATININE 0.6 mg/dL (0.55-1.3)
[2021-02-18 16:13] LABS: TOT PROT 5.8 g/dl (6.4-8.2)
[2021-02-18] MEDS ORDERED: DEXTROSE 50%-WATER - 25 GM/50 ML VIAL IVPUSH ONE ×2 (16:29→22:50)
[2021-02-18] MEDS ORDERED: DEXTROSE 50%-WATER 25 GM/50 ML DISP.SYRIN ONE (16:55)
[2021-02-18 17:56] LABS: ANISOCYTOSIS 2+; MACROCYTOSIS 1+; PLATELET ESTIMATE DECREASED; TEAR DROP CELLS 1+
[2021-02-18 18:00] LABS: PLATELET COUNT 24 10^3/uL (134-434)
[2021-02-18] MEDS ORDERED: morphine CARPU-JECT 4 MG/1 ML DISP.SYRIN IVPUSH PRN (18:46)
[2021-02-18] MEDS ORDERED: FUROSEMIDE 40 MG/4 ML INJECTABLE VIAL IVPUSH ONE (18:46)
[2021-02-18] MEDS ORDERED: FUROSEMIDE 40 MG/4 ML INJECTABLE VIAL ONE (19:04)
[2021-02-18 19:25] LABS: INR 1.84 (0.83-1.09); PROTHROMBIN TIME (PATIENT) 21.9 SEC (9.7-13.0)
[2021-02-18 19:27] LABS: ACTIVATED PTT 32.8 SECONDS (25.2-36.5)
[2021-02-18] MEDS ORDERED: DEXTROSE 50%-WATER - 25 GM/50 ML VIAL ONE (22:51)
[2021-02-19] MEDS ORDERED: DEXTROSE 5%-NORMAL SALINE 1,000 ML IV SCH (00:30)
[2021-02-19] MEDS ORDERED: DEXTROSE 50%-WATER - 25 GM/50 ML VIAL ONE (05:17)
[2021-02-19] MEDS ORDERED: DEXTROSE 50%-WATER - 25 GM/50 ML VIAL IVPUSH PRN (05:19)
[2021-02-19] MEDS ORDERED: DEXTROSE 50%-WATER - 25 GM/50 ML VIAL IVPUSH ONE (05:30)
[2021-02-19 08:25] LABS: BASO % 0.2 % (0-2.0); EOS % 1.4 % (0-4.5); HEMOGLOBIN 8.6 GM/dL (11.7-16.9); LYMPH % 13.3 % (8-40); MEAN PLT VOLUME 7.8 fl (7.5-11.1); MONO % 7.8 % (3.8-10.2); NEUT % 77.3 % (42.8-82.8); PLATELET COUNT 60 10^3/uL (134-434); RBC 2.68 M/mm3 (4.00-5.60); RDW 21.3 % (11.9-15.9); WHITE BLOOD COUNT 4.7 K/mm3 (4.0-10.0)
[2021-02-19 09:23] VITALS: BP 103/57; PULSE 112; TEMP 97.6
[2021-02-19] MEDS ORDERED: PHYTONADIONE 10 MG/1 ML AMP SQ SCH (10:00)
[2021-02-19 10:50] LABS: CHLORIDE 108 mmol/L (98-107); SODIUM 142 mmol/L (136-145)
[2021-02-19 10:53] LABS: ANION GAP 9 MMOL/L (8-16); CALCIUM 7.6 mg/dL (8.5-10.1); CO2 25 mmol/L (21-32)
[2021-02-19 10:58] LABS: CREATININE 0.7 mg/dL (0.55-1.3)
[2021-02-19 11:41] LABS: GLUCOSE,RANDOM 23 mg/dL (74-106)
[2021-02-19] MEDS ORDERED: MORPHINE SULFATE/0.9% NACL/PF 100 MG/100 ML BAG IVPB SCH (12:00)
== END 2021-02-19 13:40 | disposition expired | DRG 180 ==
LOC: JER 13:25 → JERBED 14:23 → J5S 21:19
PROVIDERS: ADMIT Internal Medicine; ATTEND Family Medicine
PROC: 30233R1 Transfusion of Nonautologous Platelets into Peripheral Vein, Percutaneous Approach (ICD-10-PCS; principal; 2021-02-19)
DX: C34.90 Malignant neoplasm of unspecified part of unspecified bronchus or lung (principal); S06.5X0A Traumatic subdural hemorrhage without loss of consciousness, initial encounter; S02.85XA Fracture of orbit, unspecified, initial encounter for closed fracture; R64 Cachexia; Z68.1 Body mass index [BMI] 19.9 or less, adult; E46 Unspecified protein-calorie malnutrition; C79.51 Secondary malignant neoplasm of bone; R71.0 Precipitous drop in hematocrit; R53.1 Weakness; E11.9 Type 2 diabetes mellitus without complications; E78.5 Hyperlipidemia, unspecified; I10 Essential (primary) hypertension; R62.7 Adult failure to thrive; N40.0 Benign prostatic hyperplasia without lower urinary tract symptoms; D69.6 Thrombocytopenia, unspecified; W19.XXXA Unspecified fall, initial encounter; Y93.9 Activity, unspecified; Y92.89 Other specified places as the place of occurrence of the external cause; Y99.9 Unspecified external cause status; X58.XXXA Exposure to other specified factors, initial encounter; H11.32 Conjunctival hemorrhage, left eye
CPT/HCPCS: 36415; 36430; 36511; 70450-TC; 70486-TC; 71045-TC-FY; 72125-TC; 80048; 80053; 82962; 85025; 85384; 85610; 85730; 86850; 86900; 86901; 93005; 93010; 99285-25; C9803; P9034; P9038; U0003; U0005